=== PATIENT | female | born 1965 | race Caucasian/White ===

== ENCOUNTER 2023-11-10 15:12 | Inpatient (IN) ==
--- NOTE | 2023-11-10 15:18 | ED Triage Note ---
Date of Service November 10, 2023 Provider in Triage Author: Bobby Carson History of Present Illness This patient was briefly evaluated while in triage. An abbreviated physical exam was performed. This patient is a 58-year-old Female who presents to the ED for evaluation illness started 10/26 - cough, congestion, fevers, no testing done feeling increasingly SOB in the last few days productive cough Physical Exam GENERAL: Mild distress, ill appearing, hypertensive, tachycardic and tachypneic CARDIOVASCULAR: RRR RESPIRATORY: BS diminished bilaterally. Initial orders for labs and / or imaging were placed and patient was placed in the waiting area until a bed is available. Please see further documentation for the full ED course.
[2023-11-10] MEDS: ALBUT/IPRATROP 3MG/0.5MG NEB 3 ML VIAL NEB STA ×2 (15:36→18:16)
[2023-11-10 16:05] LABS: Basophils # (auto) 0.01 K/uL (0.00-0.20); Basophils % (auto) 0.1 %; Eosinophils # (auto) 0.03 K/uL (0.00-0.50); Eosinophils % (auto) 0.3 %; Hematocrit (blood only) 42.1 % (37.0-47.0); Hemoglobin 14.5 g/dl (12.0-16.0); Immature Granulocytes # (auto) 0.04 K/uL (0.01-0.20); Immature Granulocytes % (auto) 0.4 %; Lymphocytes # (auto) 0.45 K/uL (1.20-3.40); Lymphocytes % (auto) 4.2 %; Mean Corpuscular Hemoglobin 33.6 pg (25.0-34.0); Mean Corpuscular Hgb Conc 34.4 g/dL (32.0-36.0); Mean Corpuscular Volume 97.7 fL (80.0-100.0); Mean Platelet Volume 9.5 fL (9.4-12.4); Monocytes # (auto) 0.64 K/uL (0.11-0.59); Monocytes % (auto) 5.9 %; Neutrophils # (auto) 9.65 K/uL (1.40-6.50); Neutrophils % (auto) 89.1 %; Platelet Count 293 K/uL (130-400); RDW Coefficient of Variation 13.8 % (11.5-14.5); RDW Standard Deviation 50.4 fL (36.4-46.3); Red Blood Count 4.31 M/uL (4.20-5.40); White Blood Count 10.82 K/ul (4.8-10.8)
[2023-11-10 16:11] LABS: Albumin Globulin Ratio 1.5 (0.9-2); Albumin Level 4.8 gm/dl (3.4-5.0); BUN Creatinine Ratio 12.3 (10-20); Bilirubin,Total 0.6 mg/dl (0.2-1.0); Calcium 10.1 mg/dl (8.6-10.3); Creatinine Clr Calc Pharmacy 92.4 ml/min; Est GFR (African American) 113.4 ml/min; Est GFR (Non-African American) 97.9 ml/min; Globulin 3.3 gm/dl (2.5-4.0); Potassium 3.8 mmol/L (3.5-5.1); Total Protein 8.1 gm/dl (6.0-8.3)
[2023-11-10 16:18] LABS: Troponin I High Sensitivity 6.8 pg/ml (0-14)
[2023-11-10 16:23] LABS: D Dimer 340 ug/L FEU (0-500)
[2023-11-10 16:34] LABS: Adenovirus PCR Not Detected (NotDetected); Bordetella parapertussis PCR Not Detected (NotDetected); Bordetella pertussis PCR Not Detected (NotDetected); Chlamydia pneumoniae PCR Not Detected (NotDetected); Coronavirus 229E PCR Not Detected (NotDetected); Coronavirus CoV-2 (COVID19)PCR Not Detected (NotDetected); Coronavirus HKU1 PCR DETECTED (NotDetected); Coronavirus NL63 PCR Not Detected (NotDetected); Coronavirus OC43PCR Not Detected (NotDetected); Human Metapneumovirus PCR Not Detected (NotDetected); Influenza A PCR Not Detected (NotDetected); Influenza B PCR Not Detected (NotDetected); Mycoplasma pneumoniae PCR Not Detected (NotDetected); Parainfluenza Virus 1 PCR Not Detected (NotDetected); Parainfluenza Virus 2 PCR Not Detected (NotDetected); Parainfluenza Virus 3 PCR Not Detected (NotDetected); Parainfluenza Virus 4 PCR Not Detected (NotDetected); Respiratory Syncytial VirusPCR Not Detected (NotDetected); Rhinovirus/Enterovirus PCR Not Detected (NotDetected)
--- NOTE | 2023-11-10 16:38 | XRay Report ---
XR chest 2V PA/lateral CLINICAL HISTORY: Dyspnea. COMPARISON STUDY: No previous studies for comparison. FINDINGS: Lung volumes are normal. Lungs are clear. There is no pneumothorax or pleural effusion. Car diac size is normal. Mediastinal contours are normal. There is no evidence for pulmonary edema. IMPRESSION: No acute cardiopulmonary findings. ACT 112: Negative or not required by law. Electronically signed by: Александр Lopez M.D. 11/10/2023 4:37 PM
[2023-11-10] MEDS: dexAMETHasone**PF** 10 MG/ML VIAL IV ONE (17:17)
[2023-11-10] MEDS: SODIUM CHLORIDE 0.9% 500 ML IV ONE ×2 (17:17→18:16)
--- NOTE | 2023-11-10 17:24 | Emergency Department Note ---
Impression & Plan Acute bronchitis, Hypoxia, Viral infection ED Provider Note NAME: SHAYY VASQUEZ AGE: 58 SEX: F : 1965 ARRIVES VIA: Walk-In INFORMANT: Patient, ED PROVIDER(S): Maksim Dumont DO CHIEF COMPLAINT: Shortness of breath HPI: The patient is a 58-year-old female who presented to the emergency department for an evaluation of shortness of breath. The patient's been having shortness of breath over the course of the last few weeks. The patient states that she has had a dry cough. The patient denies having any fever. She denies having any hemoptysis or lower extremity swelling. The patient does not have a primary care physician that she could see currently. The patient states that she does not use tobacco products currently. She was having significant shortness of breath and fast heart rate especially with any exertion. The patient denies having any abdominal pain. She does complain of some chest pressure ROS: See above HPI for pertinent positives & negatives. A total of 10 systems reviewed and were otherwise negative. PAST MEDICAL HISTORY: See Below PAST SURGICAL HISTORY: See Below FAMILY HISTORY: See Below SOCIAL HISTORY: See Below HOME MEDICATIONS: See Below ALLERGIES: See Below VITALS: See Below PHYSICAL EXAMINATION: GENERAL: The patient is awake and alert. She is somewhat anxious appearing. EYES: The conjunctivae are clear. The pupils are round and reactive. EARS, NOSE, MOUTH AND THROAT: The nose is without any evidence of any deformity. NECK: The neck is nontender and supple. RESPIRATORY: Diminished breath sounds are noted throughout. There is conversational dyspnea appreciated. Gallops normal S1 normal S2. GASTROINTESTINAL: The abdomen is soft. Abdomen is nontender. MUSCULOSKELETAL/EXTREMITIES: There is no evidence of gross deformity full range of motion is noted in the hips and shoulders. SKIN: There is no obvious evidence of any rash. There are no petechiae, pallor or cyanosis noted. NEUROLOGIC: Patient is awake alert and oriented x3 MEDICAL DECISION MAKING: The patient is a 58-year-old female who presented to the emergency department for an evaluation of difficulty breathing. The patient's history and physical exam appear to be consistent with more of a bronchitis. The patient was hypoxic with any exertion. I discussed the patient's laboratory and radiographic studies with her. She was treated with IV fluids IV steroids and bronchodilator therapy. On reevaluation she was significantly improved but still had hypoxia with exertion. This reason [facility] agreed to evaluate the patient in the emergency department for further management and disposition Triage Nursing notes reviewed. Prior medical records reviewed Vital Signs: reviewed and remarkable for elevated blood pressure and hypoxia. Differential diagnosis: Reactive airway disease, pneumonia, pneumothorax, COPD, CHF, infections, cardiac ischemia, pulmonary embolism, musculoskeletal, gastrointestinal, as well as other pathologies. ER treatment provided: See below Diagnostics interpreted by me: ECG: EKG was obtained in the emergency department. My interpretation is sinus tachycardia 116 bpm. There is no acute ST segment elevations noted. There is no ectopy. No previous tracing was available Cardiac Monitoring: An order was placed for continuous cardiac monitoring. The monitor shows a rate of 95 bpm with sinus rhythm. Laboratory studies: As stated above and show below. Imaging studies: See below. Radiographic imaging was reviewed by myself Consultation(s): I discussed this case with Dr. Sapp who [facility] ED COURSE: Procedures: none Critical Care: I have personally spent greater than 45 minutes of critical care time in the direct management of this patient. This includes bedside care, interpretation of diagnostic studies, and testing, discussion with consultants, patient, and family members, and other required patient management activities. This 45 minutes is in excess of all separately billable procedures. Past Med/Surg History Medical History High cholesterol Lumbar back pain Social History Smoking Status: Former smoker Preferred Language: Afghan Feels Safe at Home: Yes Allergies Allergies Allergy/AdvReac Type Severity Reaction Status Date / Time betaine Allergy Severe PER Verified 11/10/23 19:17 [facility] blue dye Allergy Severe SHORT OF Verified 11/10/23 19:17 BREATH/HIVES bupropion Allergy Severe CHEST Verified 11/10/23 19:17 PAIN/CYANOSIS neomycin Allergy Severe Anaphylaxis Verified 11/10/23 19:17 paroxetine Allergy Severe SWELLING Verified 11/10/23 19:17 OF FACE/LIPS/TONGUE GLUTATHIONE Allergy Severe PER Uncoded 11/10/23 19:17 [facility] TRYPSIN-CASTOR OIL-CARLOS Allergy Severe PER Uncoded 11/10/23 19:17 [facility] TEA TREE OIL Allergy Intermediate Rash Uncoded 11/10/23 19:17 Home Meds Home Medications Medication Instructions Recorded Confirmed albuterol sulfate 2.5 mg/3 mL 2.5 mg inhalation DIRECTED PRN 11/10/23 11/10/23 (0.083 %) solution for nebulization Shortness Of Breath Or Wheezing albuterol sulfate 90 mcg/actuation 2 puff inhalation QID PRN 11/10/23 11/10/23 aerosol inhaler Shortness Of Breath Or Wheezing citalopram 40 mg tablet 40 mg PO DAILY 11/10/23 11/10/23 cyclobenzaprine 10 mg tablet 10 mg PO BID PRN MUSCLE SPASMS 11/10/23 11/10/23 ibuprofen 200 mg tablet 400 mg PO Q6H PRN Pain 11/10/23 11/10/23 naproxen 500 mg tablet 500 mg PO BID PRN Pain 11/10/23 11/10/23 rosuvastatin 10 mg tablet 10 mg PO DAILY 11/10/23 11/10/23 Results & Data (ED) Vital Signs Vital Signs - 24 hr 11/10/23 15:17 11/10/23 16:37 11/10/23 16:47 Temperature 36.9 C Temperature Source Temporal Artery Scan Pulse Rate 127 H 104 H 103 H Pulse Rate from SpO2 Sensor 103 H Respiratory Rate 32 H 30 H Respiratory Effort / Characteristics Non-Labored Spontaneous Blood Pressure 186/105 H 167/99 H Blood Pressure Mean 132 121 Pulse Oximetry 90 91 Oxygen Delivery Method Room Air Room Air Oxygen Flow Rate Sepsis Recent Fever Within 48 Hours Yes Sepsis New/Unexplained Change in Mental Status No Sepsis Action Taken by Nursing Adv Provider Notified Oxygen Flow Rate - Titration Pulse Oximetry Post Tiitration 11/10/23 17:00 11/10/23 17:00 11/10/23 17:05 Temperature Temperature Source Pulse Rate 105 H Pulse Rate from SpO2 Sensor 101 H Respiratory Rate 26 H Respiratory Effort / Characteristics Blood Pressure 151/95 H Blood Pressure Mean 126 Pulse Oximetry 90 88 L Oxygen Delivery Method Room Air Nasal Cannula Oxygen Flow Rate 0 Sepsis Recent Fever Within 48 Hours Sepsis New/Unexplained Change in Mental Status Sepsis Action Taken by Nursing Oxygen Flow Rate - Titration 2 Pulse Oximetry Post Tiitration 96 11/10/23 17:06 11/10/23 17:35 11/10/23 18:00 Temperature Temperature Source Pulse Rate 106 H Pulse Rate from SpO2 Sensor Respiratory Rate 20 Respiratory Effort / Characteristics Blood Pressure 142/79 H Blood Pressure Mean 122 Pulse Oximetry 96 Oxygen Delivery Method Nasal Cannula Oxygen Flow Rate 2 Sepsis Recent Fever Within 48 Hours Sepsis New/Unexplained Change in Mental Status Sepsis Action Taken by Nursing Oxygen Flow Rate - Titration Pulse Oximetry Post Tiitration 11/10/23 18:00 11/10/23 18:30 11/10/23 18:30 Temperature Temperature Source Pulse Rate 92 H 90 Pulse Rate from SpO2 Sensor 95 H 91 H Respiratory Rate 17 12 Respiratory Effort / Characteristics Blood Pressure 181/88 H Blood Pressure Mean 118 Pulse Oximetry 95 99 Oxygen Delivery Method Oxygen Flow Rate Sepsis Recent Fever Within 48 Hours Sepsis New/Unexplained Change in Mental Status Sepsis Action Taken by Nursing Oxygen Flow Rate - Titration Pulse Oximetry Post Tiitration 11/10/23 19:00 11/10/23 19:00 11/10/23 19:30 Temperature Temperature Source Pulse Rate 96 H 89 Pulse Rate from SpO2 Sensor 93 H Respiratory Rate 24 Respiratory Effort / Characteristics Blood Pressure 163/91 H 149/94 H Blood Pressure Mean 127 118 Pulse Oximetry 93 Oxygen Delivery Method Oxygen Flow Rate Sepsis Recent Fever Within 48 Hours Sepsis New/Unexplained Change in Mental Status Sepsis Action Taken by Nursing Oxygen Flow Rate - Titration Pulse Oximetry Post Tiitration 11/10/23 19:30 11/10/23 20:00 11/10/23 20:00 Temperature Temperature Source Pulse Rate 91 H 94 H Pulse Rate from SpO2 Sensor 91 H 93 H Respiratory Rate 16 30 H Respiratory Effort / Characteristics Blood Pressure 170/97 H Blood Pressure Mean 121 Pulse Oximetry 94 95 Oxygen Delivery Method Oxygen Flow Rate 2 Sepsis Recent Fever Within 48 Hours Sepsis New/Unexplained Change in Mental Status Sepsis Action Taken by Nursing Oxygen Flow Rate - Titration Pulse Oximetry Post Tiitration 11/10/23 20:20 11/10/23 20:21 11/10/23 20:36 Temperature Temperature Source Pulse Rate 90 95 H Pulse Rate from SpO2 Sensor 91 H Respiratory Rate 17 Respiratory Effort / Characteristics Blood Pressure 173/91 H Blood Pressure Mean 118 Pulse Oximetry 95 Oxygen Delivery Method Oxygen Flow Rate Sepsis Recent Fever Within 48 Hours Sepsis New/Unexplained Change in Mental Status Sepsis Action Taken by Nursing Oxygen Flow Rate - Titration Pulse Oximetry Post Tiitration Home Medications Current Medication List: was personally reviewed by me Laboratory Data Attestation: I reviewed the patient's lab results. 11/10/23 15:30 11/10/23 15:30 Lab Results 11/10/23 11/10/23 Range/Units 15:16 15:30 WBC 10.82 H (4.8-10.8) K/ul RBC 4.31 (4.20-5.40) M/uL Hgb 14.5 (12.0-16.0) g/dl Hct 42.1 (37.0-47.0) % MCV 97.7 (80.0-100.0) fL MCH 33.6 (25.0-34.0) pg MCHC 34.4 (32.0-36.0) g/dL RDW Std Deviation 50.4 H (36.4-46.3) fL RDW Coeff of Opal 13.8 (11.5-14.5) % Plt Count 293 (130-400) K/uL MPV 9.5 (9.4-12.4) fL Immature Gran % (Auto) 0.4 % Neut % (Auto) 89.1 % Lymph % (Auto) 4.2 % [place] % (Auto) 5.9 % Eos % (Auto) 0.3 % Baso % (Auto) 0.1 % Neut # (Auto) 9.65 H (1.40-6.50) K/uL Lymph # (Auto) 0.45 L (1.20-3.40) K/uL [place] # (Auto) 0.64 H (0.11-0.59) K/uL Eos # (Auto) 0.03 (0.00-0.50) K/uL Baso # (Auto) 0.01 (0.00-0.20) K/uL Immature Gran # (Auto) 0.04 (0.01-0.20) K/uL D-Dimer 340 (0-500) ug/L FEU Sodium 135 L (136-145) mmol/L Potassium 3.8 (3.5-5.1) mmol/L Chloride 100 (98-107) mmol/L Carbon Dioxide 24 (21-32) mmol/L Anion Gap 11 (3-11) BUN 8 (6-23) mg/dl Creatinine 0.65 (0.6-1.2) mg/dl Est Cr Clr Drug Dosing 92.4 ml/min Est GFR ( Amer) 113.4 ml/min Est GFR (Non-Af Amer) 97.9 ml/min BUN/Creatinine Ratio 12.3 (10-20) Glucose 137 H (70-99(Fasting)) mg/dl Calcium 10.1 (8.6-10.3) mg/dl Total Bilirubin 0.6 (0.2-1.0) mg/dl AST 28 (13-39) U/L ALT 52 (7-52) U/L Alkaline Phosphatase 131 H (34-104) U/L Troponin I High Sens 6.8 (0-14) pg/ml Total Protein 8.1 (6.0-8.3) gm/dl Albumin 4.8 (3.4-5.0) gm/dl Globulin 3.3 (2.5-4.0) gm/dl Albumin/Globulin Ratio 1.5 (0.9-2) Adenovirus (PCR) Not Detected (NotDetected) B. pertussis DNA (PCR) Not Detected (NotDetected) B.parapertussis DNA PCR Not Detected (NotDetected) C. pneumoniae DNA (PCR) Not Detected (NotDetected) Coronavirus OC43 (PCR) Not Detected (NotDetected) Coronavirus HKU1 (PCR) DETECTED A (NotDetected) Coronavirus 229E (PCR) Not Detected (NotDetected) SARS-CoV-2 (PCR) Not Detected (NotDetected) Coronavirus NL63 (PCR) Not Detected (NotDetected) Human Metapneumovir PCR Not Detected (NotDetected) Influenza Type A (PCR) Not Detected (NotDetected) Influenza Type B (PCR) Not Detected (NotDetected) M. pneumoniae (PCR) Not Detected (NotDetected) Parainfluenza 1 (PCR) Not Detected (NotDetected) Parainfluenza 2 (PCR) Not Detected (NotDetected) Parainfluenza 3 (PCR) Not Detected (NotDetected) Parainfluenza 4 (PCR) Not Detected (NotDetected) RSV (PCR) Not Detected (NotDetected) Entero/Rhino (PCR) Not Detected (NotDetected) Administered Medications Discontinued Medications Albuterol (Albut/Ipratrop 3mg/0.5mg Neb 3 Ml Vial) 3 ml NEB NOW STA; Protocol Stop: 11/10/23 15:19 Last Admin: 11/10/23 15:36 Dose: 3 ml Documented By: ANASTASIA Albuterol (Albut/Ipratrop 3mg/0.5mg Neb 3 Ml Vial) 3 ml NEB NOW STA; Protocol Stop: 11/10/23 18:11 Last Admin: 11/10/23 18:16 Dose: 3 ml Documented By: ACC Dexamethasone Sodium Phosphate (DexamethasonePf 10 Mg/Ml Vial) 10 mg IV NOW ONE Stop: 11/10/23 17:09 Last Admin: 11/10/23 17:17 Dose: 10 mg Documented By: ACC Sodium Chloride (Nss) 500 mls @ 999 mls/hr IV .Q31M ONE Stop: 11/10/23 17:38 Last Infusion: 11/10/23 17:50 Dose: Infused Documented By: Admin: 11/10/23 17:17 Dose: 999 mls/hr Documented By: ACC Sodium Chloride (Nss) 500 mls @ 999 mls/hr IV .Q31M ONE Stop: 11/10/23 18:39 Last Infusion: 11/10/23 18:48 Dose: Infused Documented By: Admin: 11/10/23 18:16 Dose: 999 mls/hr Documented By: ACC Ioversol (Optiray 320 125ml) 119 ml IV ONCE ONE Stop: 11/10/23 17:29 Last Admin: 11/10/23 17:29 Dose: 119 ml Documented By: JOHANA Imaging Data Attestation: I personally reviewed and interpreted this imaging study as follows: My Impression: 1 view chest x-ray was obtained in the emergency department. My interpretation is no free air or definite infiltrate, final report below Radiologist's Impression: Chest X-Ray 11/10/23 15:18 XR chest 2V PA/lateral CLINICAL HISTORY: Dyspnea. COMPARISON STUDY: No previous studies for comparison. FINDINGS: Lung volumes are normal. Lungs are clear. There is no pneumothorax or pleural effusion. Cardiac size is normal. Mediastinal contours are normal. There is no evidence for pulmonary edema. IMPRESSION: No acute cardiopulmonary findings. ACT 112: Negative or not required by law. Electronically signed by: Александр Lopez M.D. 11/10/2023 4:37 PM Chest CTA 11/10/23 17:08 CT angio chest PE protocol CLINICAL HISTORY: PE TECHNIQUE: Multidetector row helical CT of the chest was performed with angiographic protocol. Coronal and sagittal reformations were obtained. Coronal and sagittal MIPS were obtained from the axial data set and were submitted for review. Automated dose lowering techniques and/or adjustment according to patient size were utilized for this exam. CT DOSE: 720.03 mGy.cm Comparison: Comparison is made to chest radiograph 11/10/2023 FINDINGS: Lungs and pleura: Biapical scarring is noted. Heart and pericardium: Heart size is normal. No pericardial effusion. Vessels: No evidence of pulmonary embolism. Mediastinum and sanjeev: Subcentimeter lymph nodes are seen. Chest wall and lower neck: Unremarkable. Abdomen: A hiatal hernia is seen. Bones: Degenerative changes in the thoracic spine. IMPRESSION: 1. No acute abnormality and in particular no evidence of pulmonary embolus. 2. Mild interstitial thickening is seen with biapical scarring. ACT 112: Negative or not required by law. Electronically signed by: Robert Bahena M.D. 11/10/2023 6:00 PM Discharge Plan Visit Data Chief Complaint: Shortness of Breath/Dyspnea Stated Complaint: TROUBLE BREATHING ED Provider: Maksim Dumont Discharge Problem: Acute bronchitis, Hypoxia, Viral infection Patient Disposition: Admitted As Inpatient Forms Stand Alone Forms: [facility] Prescriptions Prescriptions: No Action cyclobenzaprine 10 mg tablet 10 mg PO BID PRN (Reason: MUSCLE SPASMS) citalopram 40 mg tablet 40 mg PO DAILY albuterol sulfate 90 mcg/actuation HFA aerosol inhaler 2 puff INHALATION QID PRN (Reason: Shortness Of Breath Or Wheezing) naproxen 500 mg tablet 500 mg PO BID PRN (Reason: Pain) rosuvastatin 10 mg tablet 10 mg PO DAILY albuterol sulfate [Proventil] 2.5 mg /3 mL (0.083 %) Solution For Nebulization 2.5 mg INHALATION DIRECTED PRN (Reason: Shortness Of Breath Or Wheezing) ibuprofen 200 mg Tablet 400 mg PO Q6H PRN (Reason: Pain) Referrals Referrals: Rommel Bravo DO [Primary Care Provider] - Discharge Problem: Acute bronchitis Qualifiers: Bronchitis organism: unspecified organism Qualified Code(s): J20.9 - Acute bronchitis, unspecified
[2023-11-10] MEDS: OPTIRAY 320 125ml IV ONE (17:29)
--- NOTE | 2023-11-10 18:02 | CT Scan Report ---
CT angio chest PE protocol CLINICAL HISTORY: PE TECHNIQUE: Multidetector row helical CT of the chest was performed with angiographic protocol. Ribeiro l and sagittal reformations were obtained. Coronal and sagittal MIPS were obtained from the axial gennaro a set and were submitted for review. Automated dose lowering techniques and/or adjustment according to patient size were utilized for this exam. CT DOSE: 720.03 mGy.cm Comparison: Comparison is made to chest radiograph 11/10/2023 FINDINGS: Lungs and pleura: Biapical scarring is noted. Heart and pericardium: Heart size is normal. No pericardial effusion. Vessels: No evidence of pulmonary embolism. Mediastinum and sanjeev: Subcentimeter lymph nodes are seen. Chest wall and lower neck: Unremarkable. Abdomen: A hiatal hernia is seen. Bones: Degenerative changes in the thoracic spine. IMPRESSION: 1. No acute abnormality and in particular no evidence of pulmonary embolus. 2. Mild interstitial thickening is seen with biapical scarring. ACT 112: Negative or not required by law. Electronically signed by: Robert Bahena M.D. 11/10/2023 6:00 PM
--- NOTE | 2023-11-10 20:53 | History & Physical Report ---
Date of Service November 10, 2023 Assessment & Plan (1) SOB (shortness of breath): Plan: 58-year-old female with past medically significant for prediabetes, GERD, sacroiliitis, depression, mild COPD presents with shortness of breath. Patient states she had cold symptoms on October 26. Since then she is developing cough and shortness of breath which is getting progressively worse. And today walking short distance making her short of breath. And also had some chest tightness. Some headache. No body aches. Appetite is down. Coughing and bringing up whitish phlegm. Thought maybe had some low-grade fever. Some nausea. No vomiting. No abdominal pain. Normal bowel and bladder movements. Vision is okay. No earaches. Had sore throat for initial couple of days but is gone now. Hemodynamics are okay. Shortness of breath Mostly COPD exacerbation from viral bronchitis Bio fire was positive for [id number] Droplet precautions IV Solu-Medrol 40 mg 3 times daily DuoNebs dpiaxn-wtr-agosm and as needed P.o. doxycycline Will monitor Chest tightness Mostly from above Initial troponin negative and EKG okay Will follow serial enzymes and repeat EKG If any concern will get echo and cardiac consult Depression on citalopram Hyperlipidemia On statin Prediabetes Will follow HbA1c levels Monitor blood sugars while on steroids DVT prophylaxis Lovenox Disposition Admit/telemetry Full code History of Present Illness Chief Complaint: Shortness of breath Primary Care Provider: Rommel Bravo DO 58-year-old female with past medically significant for prediabetes, GERD, sacroiliitis, depression, mild COPD presents with shortness of breath. Patient states she had cold symptoms on October 26. Since then she is developing cough and shortness of breath which is getting progressively worse. And today walking short distance making her short of breath. And also had some chest tightness. Some headache. No body aches. Appetite is down. Coughing and bringing up whitish phlegm. Thought maybe had some low-grade fever. Some nausea. No vomiting. No abdominal pain. Normal bowel and bladder movements. Vision is okay. No earaches. Had sore throat for initial couple of days but is gone now. Hemodynamics are okay. Past med history. As mentioned above Past surgical history. Likely shoulders. Lumbar spine fusion surgery. Sacroiliac joint injection. Posterior spinal fixation. Social history. . Smoked 1 pack a day for 23 years. Quit smoking in 2008. Alcohol beer daily. No known drug use. Family history. Father had eczema. Heart attack. Lung cancer. Back problems. Maternal grandmother had IA at any age. Paternal grandmother had diabetes. Allergies Allergy/AdvReac Type Severity Reaction Status Date / Time balsam gwyn Allergy Severe per Verified 11/10/23 23:12 [facility] betaine Allergy Severe PER Verified 11/10/23 19:17 [facility] blue dye Allergy Severe SHORT OF Verified 11/10/23 19:17 BREATH/HIVES bupropion Allergy Severe CHEST Verified 11/10/23 19:17 PAIN/CYANOSIS castor oil Allergy Severe per Verified 11/10/23 23:12 [facility] neomycin Allergy Severe Anaphylaxis Verified 11/10/23 19:17 paroxetine Allergy Severe SWELLING Verified 11/10/23 19:17 OF FACE/LIPS/TONGUE trypsin Allergy Severe per Verified 11/10/23 23:12 [facility] tea tree Allergy Intermediate (OIL) Rash Verified 11/10/23 23:12 glutathione Allergy Severe per Uncoded 11/10/23 23:16 [facility] Home Medications Medication Instructions Recorded Confirmed Type albuterol sulfate 2.5 mg/3 mL 2.5 mg inhalation DIRECTED PRN 11/10/23 11/10/23 History (0.083 %) solution for nebulization Shortness Of Breath Or Wheezing albuterol sulfate 90 mcg/actuation 2 puff inhalation QID PRN 11/10/23 11/10/23 History aerosol inhaler Shortness Of Breath Or Wheezing citalopram 40 mg tablet 40 mg PO DAILY 11/10/23 11/10/23 History cyclobenzaprine 10 mg tablet 10 mg PO BID PRN MUSCLE SPASMS 11/10/23 11/10/23 History ibuprofen 200 mg tablet 400 mg PO Q6H PRN Pain 11/10/23 11/10/23 History naproxen 500 mg tablet 500 mg PO BID PRN Pain 11/10/23 11/10/23 History rosuvastatin 10 mg tablet 10 mg PO DAILY 11/10/23 11/10/23 History Past Med/Surg History Medical History High cholesterol Lumbar back pain Social History (Reviewed 11/10/23 @ 17:24 by KOFI Duckworth Smoking Status: Never smoker Hx Alcohol Use: Yes Hx Substance Use: No Preferred Language: [place] Voice Systems Engineer Required: No Beliefs That Will Affect Care: None Current Living Situation: Spouse Feels Safe at Home: Yes Safety Concerns: Feels Safe At This Time Assistive Devices: None Review of Systems Review of Systems: All systems reviewed & are unremarkable except as noted in HPI & below Physical Exam Physical Exam: General-Not in distress Head- atraumatic Eyes- PERRL. ENT- oropharynx clear Neck- supple, no JVD. Lungs- clear to auscultation mild bilateral rhonchi, no wheezing Heart- regular rhythm; no murmur, no gallop. Abdomen- normal bowel sounds, soft, nontender, no distension Extremities- no pretibial edema, no erythema seen Neuro- alert, oriented x 3; PERRL, no facial palsy; no dysarthria; moves extremities. Skin- warm & dry Results & Data Results & Data Vital Signs (Past 12 Hours) Vital Signs Temp Pulse Resp BP Pulse Ox O2 Del Method O2 Flow Rate 11/10/23 20:36 95 H 11/10/23 20:21 173/91 H 11/10/23 20:20 90 17 95 11/10/23 20:00 170/97 H 11/10/23 20:00 94 H 30 H 95 11/10/23 19:30 91 H 16 94 2 11/10/23 19:30 89 149/94 H 11/10/23 19:00 163/91 H 11/10/23 19:00 96 H 24 93 11/10/23 18:30 90 12 99 11/10/23 18:30 181/88 H 11/10/23 18:00 92 H 17 95 11/10/23 18:00 142/79 H 11/10/23 17:35 106 H 20 11/10/23 17:06 96 Nasal Cannula 2 11/10/23 17:05 88 L Room Air, Nasal Cannula 0 11/10/23 17:00 151/95 H 11/10/23 17:00 105 H 26 H 90 11/10/23 16:47 103 H 11/10/23 16:37 104 H 30 H 167/99 H 91 Room Air 11/10/23 15:17 36.9 C 127 H 32 H 186/105 H 90 Room Air Diagnostic Findings Laboratory Results WBC 10.82 K/ul (4.8-10.8) H 11/10/23 15:30 RBC 4.31 M/uL (4.20-5.40) 11/10/23 15:30 Hgb 14.5 g/dl (12.0-16.0) 11/10/23 15:30 Hct 42.1 % (37.0-47.0) 11/10/23 15:30 MCV 97.7 fL (80.0-100.0) 11/10/23 15:30 MCH 33.6 pg (25.0-34.0) 11/10/23 15: MCHC 34.4 g/dL (32.0-36.0) 11/10/23 15: RDW Std Deviation 50.4 fL (36.4-46.3) H 11/10/23 15:30 RDW Coeff of Opal 13.8 % (11.5-14.5) 11/10/23 15: Plt Count 293 K/uL (130-400) 11/10/23 15:30 MPV 9.5 fL (9.4-12.4) 11/10/23 15:30 Immature Gran % (Auto) 0.4 % 11/10/23 15:30 Neut % (Auto) 89.1 % 11/10/23 15:30 Lymph % (Auto) 4.2 % 11/10/23 15:30 [place] % (Auto) 5.9 % 11/10/23 15:30 Eos % (Auto) 0.3 % 11/10/23 15:30 Baso % (Auto) 0.1 % 11/10/23 15:30 Neut # (Auto) 9.65 K/uL (1.40-6.50) H 11/10/23 15:30 Lymph # (Auto) 0.45 K/uL (1.20-3.40) L 11/10/23 15:30 [place] # (Auto) 0.64 K/uL (0.11-0.59) H 11/10/23 15:30 Eos # (Auto) 0.03 K/uL (0.00-0.50) 11/10/23 15:30 Baso # (Auto) 0.01 K/uL (0.00-0.20) 11/10/23 15:30 Immature Gran # (Auto) 0.04 K/uL (0.01-0.20) 11/10/23 15:30 D-Dimer 340 ug/L FEU (0-500) 11/10/23 15:30 Sodium 135 mmol/L (136-145) L 11/10/23 15:30 Potassium 3.8 mmol/L (3.5-5.1) 11/10/23 15:30 Chloride 100 mmol/L (98-107) 11/10/23 15:30 Carbon Dioxide 24 mmol/L (21-32) 11/10/23 15:30 Anion Gap 11 (3-11) 11/10/23 15:30 BUN 8 mg/dl (6-23) 11/10/23 15:30 Creatinine 0.65 mg/dl (0.6-1.2) 11/10/23 15:30 Est Cr Clr Drug Dosing 92.4 ml/min 11/10/23 15:30 Est GFR ( Amer) 113.4 ml/min 11/10/23 15:30 Est GFR (Non-Af Amer) 97.9 ml/min 11/10/23 15:30 BUN/Creatinine Ratio 12.3 (10-20) 11/10/23 15:30 Glucose 137 mg/dl (70-99(Fasting)) H 11/10/23 15:30 Calcium 10.1 mg/dl (8.6-10.3) 11/10/23 15:30 Total Bilirubin 0.6 mg/dl (0.2-1.0) 11/10/23 15:30 AST 28 U/L (13-39) 11/10/23 15:30 ALT 52 U/L (7-52) 11/10/23 15:30 Alkaline Phosphatase 131 U/L (34-104) H 11/10/23 15:30 Troponin I High Sens 6.8 pg/ml (0-14) 11/10/23 15:30 Total Protein 8.1 gm/dl (6.0-8.3) 11/10/23 15:30 Albumin 4.8 gm/dl (3.4-5.0) 11/10/23 15:30 Globulin 3.3 gm/dl (2.5-4.0) 11/10/23 15:30 Albumin/Globulin Ratio 1.5 (0.9-2) 11/10/23 15:30 Adenovirus (PCR) Not Detected (NotDetected) 11/10/23 15:16 B. pertussis DNA (PCR) Not Detected (NotDetected) 11/10/23 15:16 B.parapertussis DNA PCR Not Detected (NotDetected) 11/10/23 15:16 C. pneumoniae DNA (PCR) Not Detected (NotDetected) 11/10/23 15:16 Coronavirus OC43 (PCR) Not Detected (NotDetected) 11/10/23 15:16 Coronavirus HKU1 (PCR) DETECTED (NotDetected) A 11/10/23 15:16 Coronavirus 229E (PCR) Not Detected (NotDetected) 11/10/23 15:16 SARS-CoV-2 (PCR) Not Detected (NotDetected) 11/10/23 15:16 Coronavirus NL63 (PCR) Not Detected (NotDetected) 11/10/23 15:16 Human Metapneumovir PCR Not Detected (NotDetected) 11/10/23 15:16 Influenza Type A (PCR) Not Detected (NotDetected) 11/10/23 15:16 Influenza Type B (PCR) Not Detected (NotDetected) 11/10/23 15:16 M. pneumoniae (PCR) Not Detected (NotDetected) 11/10/23 15:16 Parainfluenza 1 (PCR) Not Detected (NotDetected) 11/10/23 15:16 Parainfluenza 2 (PCR) Not Detected (NotDetected) 11/10/23 15:16 Parainfluenza 3 (PCR) Not Detected (NotDetected) 11/10/23 15:16 Parainfluenza 4 (PCR) Not Detected (NotDetected) 11/10/23 15:16 RSV (PCR) Not Detected (NotDetected) 11/10/23 15:16 Entero/Rhino (PCR) Not Detected (NotDetected) 11/10/23 15:16 Impressions Chest X-Ray 11/10/23 15:18 XR chest 2V PA/lateral CLINICAL HISTORY: Dyspnea. COMPARISON STUDY: No previous studies for comparison. FINDINGS: Lung volumes are normal. Lungs are clear. There is no pneumothorax or pleural effusion. Cardiac size is normal. Mediastinal contours are normal. There is no evidence for pulmonary edema. IMPRESSION: No acute cardiopulmonary findings. ACT 112: Negative or not required by law. Electronically signed by: Александр Lopez M.D. 11/10/2023 4:37 PM Chest CTA 11/10/23 17:08 CT angio chest PE protocol CLINICAL HISTORY: PE TECHNIQUE: Multidetector row helical CT of the chest was performed with angiographic protocol. Coronal and sagittal reformations were obtained. Coronal and sagittal MIPS were obtained from the axial data set and were submitted for review. Automated dose lowering techniques and/or adjustment according to patient size were utilized for this exam. CT DOSE: 720.03 mGy.cm Comparison: Comparison is made to chest radiograph 11/10/2023 FINDINGS: Lungs and pleura: Biapical scarring is noted. Heart and pericardium: Heart size is normal. No pericardial effusion. Vessels: No evidence of pulmonary embolism. Mediastinum and sanjeev: Subcentimeter lymph nodes are seen. Chest wall and lower neck: Unremarkable. Abdomen: A hiatal hernia is seen. Bones: Degenerative changes in the thoracic spine. IMPRESSION: 1. No acute abnormality and in particular no evidence of pulmonary embolus. 2. Mild interstitial thickening is seen with biapical scarring. ACT 112: Negative or not required by law. Electronically signed by: Robert Bahena M.D. 11/10/2023 6:00 PM ECG Additional Comments: ECG. Sinus tachycardia rate of 116. No significant change was found. Code Status & VTE Plan VTE Prophylaxis Plan VTE Prophylaxis will be ordered: Yes
[2023-11-10 22:42] LABS: Appearance Urine Clear (Clear); Bacteria Urine Automated Negative (Negative); Bilirubin Urine Negative (Negative); Blood Urine Negative (Negative); Color Urine Yellow; Epithelial Cell Urine Auto >30 /lpf (0-5); Glucose Urine UA 1+ (Negative); Ketones Urine Trace (Negative); Leukocyte Esterase Urine Negative (Negative); Nitrite Urine Negative (Negative); RBC Urine Automated 0-4 /hpf (0-4); Specific Gravity Urine > 1.045 (1.000-1.030); Urobilinogen Urine Negative (Negative); pH Urine 7.5 (4.5-7.5)
[2023-11-10 22:45] LABS: Protein Urine Trace (Negative)
[2023-11-10] MEDS ORDERED: POLYETHYLENE (MIRALAX) 17 GM PACK PO PRN (22:48)
[2023-11-10] MEDS ORDERED: NITROGLYCERIN SL 0.4 MG/TAB TAB SL PRN (22:48)
[2023-11-10] MEDS ORDERED: CYCLOBENZAPRINE HCL 10 MG TAB PO PRN (22:48)
[2023-11-10] MEDS ORDERED: ACETAMINOPHEN 325 MG TAB PO PRN (22:48)
[2023-11-10] MEDS ORDERED: ALBUTEROL HFA 8 GM INHALER INH PRN (22:48)
[2023-11-10] MEDS ORDERED: methylPREDNISolone 125 MG/2 ML VIAL IV SCH (22:48)
[2023-11-10 23:47] LABS: BUN Creatinine Ratio 9.4 (10-20); Calcium 9.6 mg/dl (8.6-10.3); Creatinine Clr Calc Pharmacy 93.8 ml/min; Est GFR (Non-African American) 98.4 ml/min
[2023-11-10] MEDS: methylPREDNISolone 40 MG in SYRINGE 0 ML IV SCH (23:48)
[2023-11-10] MEDS: DOXYCYCLINE HYCLATE 100 MG CAP PO SCH (23:48)
[2023-11-11] MEDS: ALBUT/IPRATROP 3MG/0.5MG NEB 3 ML VIAL NEB PRN (00:34)
--- OUTSIDE RECORDS SUMMARY | 2023-11-11 01:02 | External Medical Summary | Summary of Care ---
Author Name Unknown Organization [facility] Address [address] [place] [address] Phone [phone] Care Team Providers Care Chief Lending Officer Name Role Phone Rommel Bravo DO Primary Care Provider Reason for Visit * Reason Comments Outpatient Testing Encounter Details Date Type Department Care Team (Late st Contact Info) Description 10/30/2023 3:00 PM EDT Laboratory Laboratory, [facility] [address] [place] [phone] [facility] [address] [place] [address] Dyslipidemia, goal LDL below 130; Prediabetes; Dysuria; Hematuria Allergies Active Allergy Reactions Criticality Noted Date Comments Betaine High 05/29/2021 cocamidoproplyl Betaine Blue Dyes (Parenteral) High 05/29/2021 Disperse Blue 106 Glutathione High 05/29/2021 Neomycin Anaphylaxis High 05/29/2021 Fluoxetine Edema face/lips/tongue High 01/01/2022 Tea Tree Oil Rash Low 05/29/2021 Trypsin-[place] Oil-Purlear Balsam High 05/29/2021 Bupropion 10/01/2006 Chest pain and cyanosis documented as of this encounter (statuses as of 10/30/2023) Medications Medication Sig Dispensed Refills Start Date End Date Status Ibuprofen 200 MG Oral Capsule Take 2 Capsules by mouth every 6 hours as needed. 0 Active Naproxen 500 MG Oral Tablet (Naprosyn) TAKE ONE TABLET BY MOUTH TWICE DAILY NEEDED FOR PAIN, TAKE WITH FOOD 40 Tablet 1 04/23/2023 04/22/2024 Active Rosuvastatin Calcium 10 MG Oral Tablet (Crestor)Indications: Dyslipidemia, goal LDL below 130 TAKE ONE TABLET BY MOUTH IN THE MORNING 30 Tablet 11 05/18/2023 05/17/2024 Active Cyclobenzaprine HCl 10 MG Oral Tablet (Flexeril)Indications :Right-sided low back pain with right-sided sciatica, unspecified chronicity TAKE 1 TABLET BY MOUTH TWICE DAILY NEEDED FOR MUSCLE SPASMS 30 Tablet 1 08/14/2023 08/13/2024 Active Citalopram Hydrobromide 40 MG Oral Tablet (CeleXA)Indications:L umbar radiculopathy Take 1 Tablet by mouth in the morning. 90 Tablet 5 2023 Active ProAir HFA 108 (90 Base) MCG/ACT Inhalation Aerosol SolutionIndications:C OPD, mild (HCC) Inhale 2 Puffs by mouth in the morning and 2 Puffs at noon and 2 Puffs in the evening and 2 Puffs before bedtime. 25.5 g 3 2023 Active Hospital, Clinic, or Other Facility Administered Medication Ordered Dose Route Frequency Start Date End Date Status Albuterol Sulfate (Proventil) (2.5 MG/3ML) 0.083% inhalation solution 2.5 mgIndications:COPD, mild (HCC) 2.5 mg NEBULIZER ONCE PRN 2023 08/27/2024 Active documented as of this encounter (statuses as of 10/30/2023) Active Problems Problem Noted Date Diagnosed Date Moderate episode of recurrent major depressive d isorder 2023 Prediabetes 01/23/2021 Overview: Per Prediabetes protocol Pap smear for cervical cancer screening 12/16/19 21 Sacroiliitis 11/27/2020 Lumbar radiculopathy 05/05/2018 DDD (degenerative disc disease), lumbar 05/05/20 18 Esophageal reflux 07/03/2009 Insomnia 10/01/2006 Overview: ICD-10 update of inactive term documented as of this encounter (statuses as of 10/30/2023) Resolved Problems Problem Noted Date Diagnosed Date Resolved Date Tobacco use disorder 04/29/2008 009 ADJ DISORDER W/DEPRES MOOD 10/08/2006 0 11/27/2021 Overview: Was on wellbutrin (not effective), paxil (chest hurts) Zoloft worked. See scanned records from 10/01/2006 documented as of this encounter (statuses as of 10/30/2023) Immunizations Name Administration Dates Next Due COVID-19 mRNA, LNP-s, No Pre serve, 2-Dose Series (Pfizer) 01/05/2021,12/15/2020 COVID-19, mRNA, LNP-s, PF, B ooster, 100mcg/0.5mg (Moderna) 08/15/2021 Covid-19, Mrna, Lnp-s, Pf, B ivalent, 30 Mcg, IM, 12 yrs and above (Pfizer) 05/31/2022 Seasonal Influenza, PF, 6 M & above, IM , (FluLaval or Fluzone) 05/29/2022,05/09/2021,04/28/2020,2018 Seasonal Influenza, Quadriva lent, No Preserve, IM 05/26/2023,04/21/2018,05/28/2017,2015 Seasonal Influenza, Split, I IV3, With Preserve, Inj 05/17/2015,05/01/2009,05/27/2008,2006 TDAP (age 10 and older)(Boostrix) 05/29/2021 TDAP (age 11 and older)(Adacel) 05/01/2009 Zoster Vaccine Recombinant (Shingrix) 11/27/2021 ,05/29/2021 documented as of this encounter Social History Tobacco Use Types Packs/Day Years Used Date Smoking Tobacco: Former Cigarettes 1 23 0 03/11/1986 - 03/11/2009 Smokeless Tobacco: Never Comments:nicotene gum Alcohol Use Standard Drinks/Week Comments Yes 20 (1 standard drink = 0.6 oz pu re alcohol) beer daily PHQ-2 Answer Date Recorded PHQ Adult Total Score 0 11/27/2022 Hunger Vital Sign Answer Date Recorded Within the past 12 months, y ou worried that your food would run out before you got the money to buy more. Never true 12/16/19 21 Within the past 12 months, t he food you bought just didn't last and you didn't have money to get more. Never true 12/15/2020 Sex and Gender Information Value Date Recorded Sex Assigned at Not on file Gender Identity Not on file Sexual Orientation Not on file Job Start Date Occupation Industry Not on file Not on file Not on file documented as of this encounter Functional Status Functional Status Response Date of Assess ment Are you deaf or do you have serious difficulty h earing? No 05/04/2018 Are you blind or do you have serious difficulty seeing, even when wearing glasses? No 05/04/2018 Do you have serious difficul ty walking or climbing stairs? (5 years old or older) No 05/04/2018 Do you have difficulty dress ing or bathing? (5 years old or older) No 05/04/2018 Because of a physical, menta l, or emotional condition, do you have difficulty doing errands alone such as visiting a doctor s office or shopping? (15 years old or older) No 05/04/20 18 Cognitive Status Response Date of Assessm ent Because of a physical, menta l, or emotional condition, do you have serious difficulty concentrating, remembering, or making decisions? (5 years old or older) No 05/04/2018 documented as of this encounter Plan of Treatment Upcoming Encounters Date Type Department Care Team (Late st Contact Info) Description 11/06/2023 3:20 PM EDT Office Visit Family Practice [facility] [address] [place] [id number] Lili Miller CRNP [address] [place] [address] 11/24/2023 9:30 AM EDT Telemedicine Interventional Pain Center, [facility] [address] [address] Stacey Hemphill PA-C [address] [place] [address] 11/27/2023 9:00 AM EDT Office Visit Cardiology, [facility] [address] [place] [address] Ewa Conteh CRNP [address] [place] [address] 11/27/2023 1:40 PM EDT Office Visit [facility] [address] [place] [address] Faiza Bennett CRNP [address] [place] [address] 12/31/2023 10:45 AM EDT Imaging Radiology [facility] [address] [place] [address] 06/01/2024 1:00 PM EDT Office Visit [facility] [address] [place] [address] Rommel Bravo, [address] [place] [address] Pending Results Name Type Priority Associated Diagnoses Date /Time COMPREHENSIVE METABOLIC PANEL Lab Routine Dyslipidemia, goal LDL below 130 10/30/2023 2:39 PM EDT HEMOGLOBIN A1C Lab Routine Prediabetes 10/30/2023 2:39 PM EDT LIPID PANEL WITH DIRECT LDL IF TG IS HIGH Lab Routine Dyslipidemia, goal LDL below 130 10/30/2023 2:39 PM EDT TSH WITH FREE T4 IF INDICATED Lab Routine Dyslipidemia, goal LDL below 130 10/30/2023 2:39 PM EDT URINALYSIS, REFLEX TO MICROSCOPIC Lab Routine Dysuria Hematuria 10/30/2023 3:05 PM EDT CULTURE, URINE, QUANTITATIVE Lab Routine Dysuria Hematuria 10/30/2023 3:05 PM EDT Health Maintenance Due Date Last Done Comments Pneumococcal Vaccine: Pediatrics (0 to 5 Years) and At-Risk Patients (6 to 64 Years) (1 of 2 - PCV) 1971 Hepatitis B (1 of 3 - 19+ 3-dose series) 1984 HPV/Co-Test 1995 Colonoscopy 2010 Fecal Occult Blood Test 2010 Sigmoidoscopy 2010 COVID-19 Vaccine (2022- season) 2023 05/31/2022, 08/15/2021, 01/05/2021, Additional history exists HbA1c 06/29/2023 06/29/2022, 11/09, 05/29/2021, Additional history exists Depression Screening 11/28/2023 11/27/2022 Cervical Cancer Screening 12/16/2023 Pap Smear 12/16/2023 12/15/2020, 12/10, 01/06/2013, Additional history exists Cologuard 01/03/2024 01/02/2021 Colorectal Cancer Screening 01/03/2024 Mammogram 01/08/2024 01/07/2023, 12/10, 12/25/2021, Additional history exists Lipid Panel 06/29/2027 06/29/2022, 11/09, 11/27/2020, Additional history exists DTaP,Tdap,and Td Vaccines (3 - Td or Tdap) 05/29/2031 05/29/2021, 05/01/2009 Zoster Vaccines Completed 11/27/2021, 05/29/2021 LUNG CANCER SCREENING - USE SMARTSET 09304 Completed 12/27/2022, 12/13/2021 Influenza Vaccine (FLU shot) Completed , 05/29/2022, 05/09/2021, Additional history exists GARDASIL-HPV IMMUNIZATION SERIES Aged Out No longer eligible based on patient's age to complete this topic MENINGOCOCCAL (MENACTRA/MENVEO) Aged Out No longer eligible based on patient's age to complete this topic documented as of this encounter Medical Devices Implanted Type Area Subassembly Assembler Device Identifier Shelf Expiration Date Model / Serial / Lot Dbx 10cc [id number] - [id number] - [id number] Implanted:Qty : 1 on 05/04/2018 by Mihn Shannon MD at OR [facility] [place] Tissue - Human N/A: Spine Lumbar MUSCULOSKELETAL TRANSPLANT FND 11/27/2019 [id number] / [id number] / Chip Cancellous 30cc [id number] - [id number] - [id number] Implanted:Qty : 1 on 05/04/2018 by Minh Shannon MD at OR [facility] [place] Tissue - Human N/A: Spine Lumbar MUSCULOSKELETAL TRANSPLANT FND 03/16/2021 [id number] / [id number] / Vitoss Bimodal Foam Pack 5cc - [id number] Implanted:Qty : 1 on 05/04/2018 by Minh Shannon MD at OR [facility] [place] N/A: Spine Lumbar MONTSERRAT : SPINE 01/05/2019 [id number] / / [id number] 6.5 X 50 Mitchell Screw Implanted:Qty : 2 on 05/04/2018 by Minh Shannon MD at OR [facility] N/A: Spine Lumbar MONTSERRAT 05/05/2018 [id number] / / Description:in set 6.5 X 45 Mitchell Screw Implanted:Qty : 2 on 05/04/2018 by Minh Shannon MD at OR [facility] N/A: Spine Lumbar MONTSERRAT 05/05/2018 [id number] / / Description:in set Screw Delon Fariba 3 Ti Set - [id number] Implanted:Qty : 4 on 05/04/2018 by Minh Shannon MD at OR [facility] N/A: Spine Lumbar MON[place]ERRAT : SPINE 05/05/2018 [id number] / / Description:in set Dennis Fariba 3 Ti 6x40mm - [id number] Implanted:Qty : 1 on 05/04/2018 by Minh Shannon MD at OR [facility] N/A: Spine Lumbar MON[place]ERRAT : SPINE 05/05/2018 [id number] / / Description:in set Dennis Fariba 3 Ti 6x35mm - [id number] Implanted:Qty : 1 on 05/04/2018 by Minh Shannon MD at OR [facility] N/A: Spine Lumbar MONTSERRAT : SPINE 05/05/2018 [id number] / / Description:in set documented as of this encounter Visit Diagnoses Diagnosis Dyslipidemia, goal LDL below 130 Other and unspecified hyperlipidemia Prediabetes Other abnormal glucose Dysuria Hematuria Hematuria, unspecified documented in this encounter Advance Directives Documents on File Type Date Recorded 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 Care Teams Chief Lending Officer Relationship Specialty Start Date End Date Rommel Bravo DO [address] [place] [place] [id number] PCP - General Family Medicine 11/13/20 documented as of this encounter
--- OUTSIDE RECORDS SUMMARY | 2023-11-11 01:02 | External Medical Summary | Summary of Care ---
Author Name Unknown Organization [facility] Address [address] [place] [address] Phone [phone] Care Team Providers Care Referral Clerk Name Role Phone Rommel Bravo DO Primary Care Provider Reason for Visit * Reason Comments Outpatient Testing Encounter Details Date Type Department Care Team (Late st Contact Info) Description 10/30/2023 3:00 PM EDT Laboratory Laboratory, [facility] [address] [place] [id number] [facility] [address] [place] [address] Dyslipidemia, goal LDL below 130; Prediabetes; Dysuria; Hematuria Allergies Active Allergy Reactions Criticality Noted Date Comments Betaine High 05/29/2021 cocamidoproplyl Betaine Blue Dyes (Parenteral) High 05/29/2021 Disperse Blue 106 Glutathione High 05/29/2021 Neomycin Anaphylaxis High 05/29/2021 Fluoxetine Edema face/lips/tongue High 01/01/2022 Tea Tree Oil Rash Low 05/29/2021 Trypsin-Dailey Oil-[place] Balsam High 05/29/2021 Bupropion 10/01/2006 Chest pain [...] 3:20 PM EDT Office Visit Family Practice [facility] [address] [place] [address] Lili Miller CRNP [address] [address] 11/24/2023 9:30 AM EDT Telemedicine Interventional Pain Center, [facility] [address] [address] Stacey Hemphill PA-C [address] [place] [address] 11/27/2023 9:00 AM EDT Office Visit Cardiology, [facility] [address] [place] [address] Ewa Conteh CRNP [address] [place] [address] 11/27/2023 1:40 PM EDT Office Visit [facility] Practice [facility] [address] [place] [address] Faiza Bennett CRNP [address] [place] [address] 12/31/2023 10:45 AM EDT Imaging Radiology [facility] [address] [place] [address] 06/01/2024 1:00 PM EDT Office Visit [facility] [address] [place] [address] Rommel Bravo, [address] [place] [address] Pending Results Name Type Priority Associated Diagnoses [...] 05/29/2021 LUNG CANCER SCREENING - USE SMARTSET 04975 Completed 12/27/2022, 12/13/2021 Influenza Vaccine (FLU shot) Completed , 05/29/2022, 05/09/2021, Additional history exists GARDASIL-HPV IMMUNIZATION SERIES Aged Out No longer eligible based on patient's age to complete this topic MENINGOCOCCAL (MENACTRA/MENVEO) Aged Out No longer eligible based on patient's age to complete this topic documented as of this encounter Medical Devices Implanted Type Area Concrete Pointer Device Identifier Shelf Expiration Date Model / Serial / Lot Dbx 10cc [id number] - [id number] - [id number] Implanted:Qty : 1 on 05/04/2018 by Minh Shannon [place] [facility] [place] - Human N/A: Spine Lumbar MUSCULOSKELETAL TRANSPLANT FND 11/27/2019 [id number] / [id number] / Chip Cancellous 30cc [id number] - [id number] - [id number] Implanted:Qty : 1 on 05/04/2018 by Minh Shannon MD [place] [facility] [place] Tissue - Human N/A: Spine Lumbar MUSCULOSKELETAL TRANSPLANT FND 03/16/2021 [id number] / [id number] / Vitoss Bimodal Foam Pack 5cc - [id number] Implanted:Qty : 1 on 05/04/2018 by Minh Shannon MD [place] [facility] [place] N/A: Spine Lumbar MONTSERRAT : SPINE 01/05/2019 [id number] / / [id number] 6.5 X 50 Mitchell Screw Implanted:Qty : 2 on 05/04/2018 by Minh Shannon MD [place] [facility] [place] N/A: Spine Lumbar MONTSERRAT 05/05/2018 [id number] / / Description:in set 6.5 X 45 Mitchell Screw Implanted:Qty : 2 on 05/04/2018 by Minh Shannon MD [place] [facility] [place] N/A: Spine Lumbar MONTSERRAT 05/05/2018 [id number] / / Description:in set Screw Delon Fariba 3 Ti Set - [id number] Implanted:Qty : 4 on 05/04/2018 by Minh Shannon MD at [place] [facility] [place] N/A: Spine Lumbar MONTSERRAT : SPINE 05/05/2018 [id number] / / Description:in set Dennis Fariba 3 Ti 6x40mm - [id number] Implanted:Qty : 1 on 05/04/2018 by Minh Shannon MD at [place] [facility] [place] N/A: Spine Lumbar MONTSERRAT : SPINE 05/05/2018 [id number] / / Description:in set Dennis Fariba 3 Ti 6x35mm - [id number] Implanted:Qty : 1 on 05/04/2018 by Minh Shannon MD at [place] [facility] [place] N/A: Spine Lumbar MONTSERRAT : SPINE 05/05/2018 [id number] / / Description:in set documented as of this encounter Visit Diagnoses Diagnosis Dyslipidemia, goal LDL below 130 Other and unspecified hyperlipidemia Prediabetes Other abnormal glucose Dysuria Hematuria Hematuria, unspecified documented in this encounter Advance Directives Documents on File Type Date Recorded Patient 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 Care Teams Referral Clerk Relationship Specialty Start Date End Date Rommel Bravo DO [address] [place] [address] PCP - General Family Medicine 11/13/20 documented as of this encounter
--- OUTSIDE RECORDS SUMMARY | 2023-11-11 01:03 | External Medical Summary | Summary of Care ---
Author Name Unknown Organization [facility] Address [address] [place] [address] Phone [phone] Care Team Providers Care Pad Assembler Name Role Phone Rommel Bravo DO Primary Care Provider Reason for Visit * Reason Comments Follow Up Left knee pain * Evaluate & Treat - Unlimited Visits (Within 10 days (routine)) - Pending Review Specialty Diagnoses / Procedures Referred By Mack cox Referred To Contact Orthopaedic Surgery / Orthopedics Diagnoses Knee pain, left Rommel Bravo DO [address] [place] [address] Referral ID Status Reason Start Date Expiration Date Visits Requested Visits Authorized [id number] Pending Review Specialty Services Required 09/15/[phone] Encounter Details Date Type Department Care Team (Latest Contact Info) Description 10/13/2023 8:00 AM EST Office Visit Orthopaedics [facility] [address] [place] [address] Maurice Duke DO [address] [place] [address] Chronic pain of left knee*; Primary osteoarthritis of left knee Allergies Active Allergy Reactions Criticality Noted Date Comments Betaine High 05/29/2021 cocamidoproplyl Betaine Blue Dyes (Parenteral) High 05/29/2021 Disperse Blue 106 Glutathione High 05/29/2021 Neomycin Anaphylaxis High 05/29/2021 Fluoxetine Edema face/lips/tongue High 01/01/2022 Tea Tree Oil Rash Low 05/29/2021 Trypsin-[place] Oil-[place] Balsam High 05/29/2021 Bupropion 10/01/2006 Chest pain and cyanosis documented as of this encounter (statuses as of 10/13/2023) Medications Medication Sig Dispensed Refills Start Date [...] mg NEBULIZER ONCE PRN 2023 08/27/2024 Active lidocaine 1% 1 mL - triamcinolone acetonide 40 mg/mL 1 mL inj 2 mLIndications:Primary osteoarthritis of left knee 2 mL IJ ONCE 10/13/2023 10/13/2023 Ended documented as of this encounter (statuses as of 10/13/2023) Active Problems Problem Noted Date Diagnosed Date Moderate episode of recurrent major depressive d isorder 2023 Prediabetes 01/23/2021 Overview: Per Prediabetes protocol Pap smear for cervical cancer screening 12/16/19 21 Sacroiliitis 11/27/2020 Lumbar radiculopathy 05/05/2018 DDD (degenerative disc disease), lumbar 05/05/20 18 Esophageal reflux 07/03/2009 Insomnia 10/01/2006 Overview: ICD-10 update of inactive term documented as of this encounter (statuses as of 10/13/2023) Resolved Problems Problem Noted Date Diagnosed Date Resolved Date Tobacco use disorder 04/29/2008 009 ADJ DISORDER W/DEPRES MOOD 10/08/2006 0 11/27/2021 Overview: Was on wellbutrin (not effective), paxil (chest hurts) Zoloft worked. See scanned records from 10/01/2006 documented as of this encounter (statuses as of 10/13/2023) Immunizations Name Administration Dates Next Due COVID-19 mRNA, LNP-s, No Pre serve, 2-Dose Series (Geodruid) 01/05/2021,12/15/2020 COVID-19, mRNA, LNP-s, PF, B ooster, 100mcg/0.5mg (Moderna) 08/15/2021 Covid-19, Mrna, Lnp-s, Pf, B ivalent, 30 Mcg, IM, 12 yrs and above (Geodruid) 05/31/2022 Seasonal Influenza, PF, 6 M & [...] 0 03/11/1986 - 03/11/2009 Smokeless Tobacco: Never Tobacco Cessation:Counseling Given: No Comments:nicotene gum Alcohol Use Standard Drinks/Week Comments [...] on file documented as of this encounter Last Filed Vital Signs Vital Sign Reading Time Taken Comments Blood Pressure - - Pulse - - Temperature - - Respiratory Rate - - Oxygen Saturation - - Inhaled Oxygen Concentration - - Weight 81.6 kg (180 lb) 10/13/2023 7:38 AM EST Height 157.5 cm (5' 2") 10/13/2023 7:38 AM EST Body Mass Index 32.92 10/13/2023 7:38 AM EST documented in this encounter Functional Status Functional Status Response [...] No 05/04/2018 documented as of this encounter Progress Notes * Maurice Duke DO - 10/13/2023 8:00 AM EST Meagan Chapman [phone] Meagan Chapman is a 58 year old female who presents for consultation to [facility] for left knee injury/pain. Consult requested by Rommel Bravo DO. Meagan Chapman is here unaccompanied Date of Injury: pain since January 2019. History: History - Seen by me on 04/27/2019. Please see that note for details had aspiration and injection. Then had follow up May 18, 2019. Was doing well. Has not been seen in follow up since. TODAY: Feels as if knee injection has worn off. Of note she no longer has a job where she stands [employer]. She is hoping today if indicated that she will receive another steroid injection. Modifying factors: activity exacerbates Associated symptoms: Swelling - negative , locking - negative , Knee giving way - negative Patient has tried ibuprofen and tylenol. No formal physical therapy. Previous knee injuries include: -no previous knee injuries or surgeries ROS EXAM:Constitional: No change in weight, No weakness, No fatigue, and No fevers, sweats, or chills Past Medical History: Diagnosis Date ADJ DISORDER W/DEPRES MOOD 10/08/2006 Was on wellbutrin (not effective), paxil (chest hurts) Zoloft worked. See scanned records from 10/01/2006 Anterolisthesis of L4 and L5 Bulging lumbar disc L5-S1 Esophageal reflux 07/03/2009 Herniation of intervertebral disc of lumbar region at L5-S1 Insomnia 10/01/2006 ICD-10 update of inactive term Lumbar pain Stenosis of lateral recess of multiple levels of spinal canal L4-L5 Varicella 1970 Family History Problem Relation Age of Onset Heart Disorder Grandmother (Maternal) [place] at young age No Known Problems Grandfather (Maternal) Diabetes Grandmother (Paternal) Eczema Father Heart attack Father Lung cancer Father Other (back problems) Father Other (heart problems) Father No Known Problems Mother No Known Problems Sister No Known Problems Brother No Known Problems Daughter No Known Problems Son Social History Socioeconomic History Marital status: Spouse name: Not on file Number of children: Not on file Years of education: Not on file Highest education level: Not on file Occupational History Occupation: [employer] Employer: [employer] Tobacco Use Smoking status: Former Current packs/day: 0.00 Average packs/day: 1 pack/day for 23.0 years (23.0 ttl pk-yrs) Types: Cigarettes Start date: 03/11/1986 Quit date: 03/11/2009 Years since quittin.5 Smokeless tobacco: Never Tobacco comments: nicotene gum Vaping Use Vaping Use: Never used Substance and Sexual Activity Alcohol use: Yes Alcohol/week: 20.0 standard drinks of alcohol Types: 24 12 oz of beer per week Comment: beer daily Drug use: No Sexual activity: Yes Partners: Male Comment: BTL Other Topics Concern Not on file Social History Narrative Not on file Social Determinants of Health Financial Resource Strain: Not on file Food Insecurity: No Food Insecurity (12/15/2020) Hunger Vital Sign Worried About Running Out of Food in the Last Year: Never true Ran Out of Food in the Last Year: Never true Transportation Needs: Not on file Physical Activity: Not on file Stress: Not on file Social Connections: Not on file Intimate Partner Violence: Not on file Housing Stability: Not on file Current Outpatient Medications Medication Sig Dispense Refill Ibuprofen 200 MG Oral Capsule Take 2 Capsules by mouth every 6 hours as needed. Naproxen 500 MG Oral Tablet (Naprosyn) TAKE ONE TABLET BY MOUTH TWICE DAILY NEEDED FOR PAIN, TAKE WITH FOOD 40 Tablet 1 Rosuvastatin Calcium 10 MG Oral Tablet (Crestor) TAKE ONE TABLET BY MOUTH IN THE MORNING 30 Tablet 11 Cyclobenzaprine HCl 10 MG Oral Tablet (Flexeril) TAKE 1 TABLET BY MOUTH TWICE DAILY NEEDED FOR MUSCLE SPASMS 30 Tablet 1 Citalopram Hydrobromide 40 MG Oral Tablet (CeleXA) Take 1 Tablet by mouth in the morning. 90 Tablet5 ProAir HFA 108 (90 Base) MCG/ACT Inhalation Aerosol Solution Inhale 2 Puffs by mouth in the morningand 2 Puffs at noon and 2 Puffs in the evening and 2 Puffs before bedtime. 25.5 g 3 Current Facility-Administered Medications Medication Dose Route Frequency Provider Last Rate Last Admin Albuterol Sulfate (Proventil) (2.5 MG/3ML) 0.083% inhalation solution 2.5 mg 2.5 mg Nebulizer Once PRN Rommel Bravo DO 2.5 mg at 09/04/23 1248 Physical Exam General: in no acute distress Mood and Affect: normal Gait and Station: mildly antalgic Knee Exam, bilateral Alignment: normal Bilateral Effusion: negative Bilateral Palpation: tenderness to palpation at medial joint line on the left ROM: R - Flexion - 120 degrees, Extension - 0 degrees L - Flexion - 120 degrees, Extension -0 degrees R- Strength: Extension - 5/5 Flexion - 5/5 L - Strength: Extension - 5/5 Flexion - 5/5 Ligament tests/stability: Grossly stable no appreciable deficits of the ACL, PCL, MCL, LCL, bilateral Meniscus tests: Hua - negative Left Thessaly test - negative Left Popliteal mass - negative Bilateral Patellar tests: Ananda's negative Bilateral Grind negative Bilateral Ileotibial band: Leone compression test- negative Bilateral Pes anserine testing negative on the left Radiology (I have personally reviewed the films done today and compared to 04/27/2019): Left knee x-ray reveals no fracture and moderate medial knee arthritis Assessment and Plan: Discussed today with the patient the risks and benefit of IA steroids, SMITH/ visco-supplemetnation injections, and PRP. After and informed discussion we elected to try intra-articular steroids. Please see procedure note. She will MyChart an update in 2 weeks. Then most likely we will follow up p.r.n. 1) Chronic pain of left knee (Primary) - XR KNEE 3 VIEWS Primary osteoarthritis of left knee - lidocaine 1% 1 mL - triamcinolone acetonide 40 mg/mL 1 mL inj 2 mL - INJECT MAJOR JX/BURSA W/O US GUIDE Maurice Duke DO Primary Care Sports Medicine Orthopaedics [facility] [address] [facility] [place] [address] Procedure note (knee injection), left : Time out: Prior to injection, a time out was called to confirm the administration of appropriate medicine, patient name, procedure and confirm to the best of our ability and knowledge the presence of any necessary risks and benefits. Patient verbalizes understanding. proper approach defined Sterile techinique applied. Skin sterilized with alcohol swab. Knee injected using 1.5 inch, 22 gauge needle. Injected with lidocaine 1% 1 mL - triamcinolone acetonide 40 mg/mL 1 mL inj 2 mL Patient tolerated procedure with no significant bleeding or adverse reaction. Patient instructed to call or return to clinic for fever or warmth and redness at injection site for potential infection. Patient also advised as to potential for steroid flare reaction including increased pain and redness at injection site which should be treated with ice and resolve within 24 hours. Maurice Duke DO documented in this encounter Nursing Notes * Karla Tong LPN - 10/13/2023 7:39 AM EST F/u last seen in 2019 for left knee pain Patient notes pain 3/10 has returned about 2 years ago Patient notes injection lasted a long time wearing bracing and using Aspercreme. documented in this encounter Plan of Treatment Upcoming Encounters Date Type Department Care Team (Late st Contact Info) Description 11/24/2023 9:30 AM EDT Telemedicine Interventional Pain Center, [facility] [address] [address] Stacey Hemphill PA-C [address] [place] [address] 11/27/2023 9:00 AM EDT Office Visit Cardiology, [facility] [address] [address] Ewa Conteh CRNP [address] [place] [address] 11/27/2023 1:40 PM EDT Office Visit Family Practice [facility] [address] [address] Faiza Bennett, ELBA [address] [place] [address] 12/31/2023 10:45 AM EDT Imaging Radiology [address] [place] [address] 06/01/2024 1:00 PM EDT Office Visit Family Practice [facility] [address] [place] [address] Rommel Bravo, [address] [place] [address] Pending Results Name Type Priority Associated Diagnoses Date /Time XR KNEE 3 VIEWS Medical Imaging Routine Chronic pain of left knee 10/13/2023 7:51 AM EST Scheduled Orders Name Type Priority Associated Diagnoses Orde r Schedule INJECT MAJOR JX/BURSA W/O US GUIDE Procedures Routine Primary osteoarthritis of left knee Ordered: 10/13/2023 Health Maintenance Due Date Last Done Comments Pneumococcal Vaccine: Pediatrics (0 to 5 Years) and At-Risk Patients (6 to 64 Years) (1 of 2 - PCV) 1971 Hepatitis B (1 of 3 - 19+ 3-dose series) 1984 HPV/Co-Test 1995 Colonoscopy 2010 Fecal Occult Blood Test 2010 Sigmoidoscopy 2010 COVID-19 Vaccine ( season) 2023 05/31/2022, 08/15/2021, 01/05/2021, Additional history [...] 05/29/2021 LUNG CANCER SCREENING - USE SMARTSET 38630 Completed 12/27/2022, 12/13/2021 Influenza Vaccine (FLU shot) Completed , 05/29/2022, 05/09/2021, Additional history exists GARDASIL-HPV IMMUNIZATION SERIES Aged Out No longer eligible based on patient's age to complete this topic MENINGOCOCCAL (MENACTRA/MENVEO) Aged Out No longer eligible based on patient's age to complete this topic documented as of this encounter Medical Devices Implanted Type Area Director Digital Advertising Device Identifier Shelf Expiration Date Model / Serial / Lot Dbx 10cc [id number] - [id number] - [id number] Implanted:Qty : 1 on 05/04/2018 by Minh Shannon MD [place] [facility] [place] Tissue - Human N/A: Spine Lumbar MUSCULOSKELETAL TRANSPLANT FND 11/27/2019 [id number] / [id number] / Chip Cancellous 30cc [id number] - [id number] - [id number] Implanted:Qty : 1 on 05/04/2018 by Minh Shannon MD [place] [facility] [place] Tissue - Human N/A: Spine Lumbar MUSCULOSKELETAL TRANSPLANT FND 03/16/2021 [id number] / [id number] / Vitoss Bimodal Foam Pack 5c - [id number] Implanted:Qty : 1 on 05/04/2018 by Minh Shannon MD [place] [facility] [place] N/A: Spine Lumbar MONTSERRAT : SPINE 01/05/2019 [id number] / / [id number] 6.5 X 50 Mitchell Screw Implanted:Qty : 2 on 05/04/2018 by Minh Shannon MD [place] [facility] [place] N/A: Spine Lumbar MONTSERRAT 05/05/2018 [id number] / / Description:in set 6.5 X 45 Mitchell Screw Implanted:Qty : 2 on 05/04/2018 by Minh Shannon MD [place] [facility] [place] N/A: Spine Lumbar MONTSERRAT 05/05/2018 [id number] / / Description:in set Screw Delon Fariba 3 Ti Set - [id number] Implanted:Qty : 4 on 05/04/2018 by Minh Shannon MD at [place] [facility] [place] N/A: Spine Lumbar MONTSERRAT : SPINE 05/05/2018 [id number] / / Description:in set Dennis Fariba 3 Ti 6x40mm - [id number] Implanted:Qty : 1 on 05/04/2018 by Minh Shannon MD at [place] [facility] [place] N/A: Spine Lumbar MONTSERRAT : SPINE 05/05/2018 [id number] / / Description:in set Dennis Fariba 3 Ti 6x35mm - [id number] Implanted:Qty : 1 on 05/04/2018 by Minh Shannon MD at [place] [facility] [place] N/A: Spine Lumbar MONTSERRAT : SPINE 05/05/2018 [id number] / / Description:in set documented as of this encounter Visit Diagnoses Diagnosis Chronic pain of left knee- Primary Pain in joint, lower leg Primary osteoarthritis of left knee Primary localized osteoarthrosis, lower leg documented in this encounter Administered Medications Inactive Administered Medications - up to 3 most recent administrations Medication Order MAR Action Action Date Dose Rate Site lidocaine 1% 1 mL - triamcinolone acetonide 40 mg/mL 1 mL inj 2 mL 2 mL, Injection, ONCE, On Fri10/13/23 at 0900, For 1 dose, Lidocaine 1% 1mL Triamcinolone Acetonide 40 mg/mL 1 mL (Final concentration = 20 mg/mL) REFRIGERATE and SHAKE WELL Given 10/13/2023 9:24 AM EST 2 mL Knee Left documented in this encounter Advance Directives Documents on File Type Date Recorded Patient Junior Systems Administrator Expl anation Power of Configuration Management Consultant 10/28/2015 POWER OF A TTORNEY Latest Code Status on File Code Status Date Activated Date Inactivated Comments Full Code 05/04/2018 5:46 AM 05/07/2018 4:17 PM This order reflects the patients wishes and were consensually agreed upon. Care Teams Pad Assembler Relationship Specialty Start Date End Date Rommel Bravo DO [address] [place] [address] PCP - General Family Medicine 11/13/20 documented as of this encounter
--- OUTSIDE RECORDS SUMMARY | 2023-11-11 01:03 | External Medical Summary ---
Author Name Unknown Address Unknown Organization [facility] [address] [place] [address] Laboratory Report Ordering Provider Test Date Status ZOILA CHOUDHARY 10/30/2023 15:05:54 Final Observation Date Value Abnormality Reference (Units ) Status Color of Urine by Auto 10/30/2023 15:05:54 Yellow Light Yellow, Yellow, Dark Yellow Final Clarity, Urine 10/30/2023 15:05:54 Clear Clear Final Glucose [Mass/volume] in Urine by Automated test strip 10/30/2023 15:05:54 Negative Negative (mg/dL) Final Bilirubin.total [Presence] in Urine by Automated test strip 10/30/2023 15:05:54 Negative Negative Final Ketones [Mass/volume] in Urine by Automated test strip 10/30/2023 15:05:54 Negative Negative (mg/dL) Final Specific gravity, Urine 10/30/2023 15:05:54 <=1.005 1.003-1.030 Final Hemoglobin [Presence] in Urine by Automated test strip 10/30/2023 15:05:54 Negative Negative Final pH, Urine 10/30/2023 15:05:54 6.5 5.0-7.5 (Units) Final Protein [Mass/volume] in Urine by Automated test strip 10/30/2023 15:05:54 Negative Negative (mg/dL) Final Urobilinogen [Mass/volume] in Urine by Automated test strip 10/30/2023 15:05:54 0.2 0.2, 1.0 (mg/dL) Final Nitrite [Presence] in Urine by Automated test strip 10/30/2023 15:05:54 Negative Negative Final Leukocyte esterase [Presence] in Urine by Automated test strip 10/30/2023 15:05:54 Negative Negative Final Annotation Comment 10/30/2023 15:05:54 Final Screen negative - Microscopi c not performed. Performing Location [facility] [address] [place] [address]
--- OUTSIDE RECORDS SUMMARY | 2023-11-11 01:03 | External Medical Summary ---
Author Name Unknown Address Unknown Organization [id number]:[facility] [place] [address] [facility] [address] Laboratory Report Ordering Provider Test Date Status ZOILA CHOUDHARY 10/30/2023 14:39:26 Final Observation Date Value Abnormality Reference (Units ) Status Triglyceride 10/30/2023 14:39:26 221 Above high normal <=174 (mg/dL) Final Triglyceride Reference Range s (mg/dL):
<150 Acceptable
150-174 Borderline high
175-499 High
>=500 Very high Cholesterol 10/30/2023 14:39:26 312 Above high normal <200 (mg/dL) Final Total Cholesterol Reference Ranges (mg/dL):
<200 Desirable
200-239 Borderline high
>=240 High HDL 10/30/2023 14:39:26 86 >49 (mg/dL ) Final HDL Cholesterol Reference Ra nges (mg/dL):
>=60 High (Desirable)
<50 Low (Undesirable) For Females
<40 Low (Undesirable) For Males NON-HDL CHOLESTEROL 10/30/2023 14:39:26 226 Above high normal <=159 (mg/dL) Final Non-HDL Cholesterol Referenc e Range (mg/dL):
<100 Target level for high risk ASCVD patient
<130 Optimal for general population
130-159 Near optimal for general population
160-189 Borderline High
190-219 High
>=220 Very High LDL, (calculated) 10/30/2023 14:39:26 182 Above high n ormal <=129 (mg/dL) Final LDL Cholesterol Reference Ra nges (mg/dL):
<70 Target level for high risk ASCVD patient
<100 Optimal for general population
100-129 Near optimal for general population
130-159 Borderline high
160-189 High
>=190 Very high Performing Location [facility] [place] [address] [facility] [address]
--- OUTSIDE RECORDS SUMMARY | 2023-11-11 01:03 | External Medical Summary | Summary of Care ---
Author Name Unknown Organization [facility] Address [address] [place] [address] Phone [phone] Care Team Providers Care Money Manager Name Role Phone Rommel Bravo Primary Care Provider Encounter Details Date Type Department Care Team ([facility] st Contact Info) Description 10/15/2023 Patient Reported Data Patient Survey Ortho OBERD Allergies Active Allergy Reactions Criticality Noted Date Comments Betaine High 05/29/2021 cocamidoproplyl Betaine Blue Dyes (Parenteral) High 05/29/2021 Disperse Blue 106 Glutathione High 05/29/2021 Neomycin Anaphylaxis High 05/29/2021 Fluoxetine Edema face/lips/tongue High 01/01/2022 Tea Tree Oil Rash Low 05/29/2021 Trypsin-[place] Oil-[place] Balsam High 05/29/2021 Bupropion 10/01/2006 Chest pain and cyanosis documented as of this encounter (statuses as of 10/15/2023) Medications Medication Sig Dispensed Refills Start Date [...] as of this encounter (statuses as of 10/15/2023) Active Problems Problem Noted Date Diagnosed Date Moderate episode of recurrent major depressive d isorder 2023 Prediabetes 01/23/2021 Overview: Per Prediabetes protocol Pap smear for cervical cancer screening 12/16/19 21 Sacroiliitis 11/27/2020 Lumbar radiculopathy 05/05/2018 DDD (degenerative disc disease), lumbar 05/05/20 18 Esophageal reflux 07/03/2009 Insomnia 10/01/2006 Overview: ICD-10 update of inactive term documented as of this encounter (statuses as of 10/15/2023) Resolved Problems Problem Noted Date Diagnosed Date Resolved Date Tobacco use disorder 04/29/2008 009 ADJ DISORDER W/DEPRES MOOD 10/08/2006 0 11/27/2021 Overview: Was on wellbutrin (not effective), paxil (chest hurts) Zoloft worked. See scanned records from 10/01/2006 documented as of this encounter (statuses as of 10/15/2023) Immunizations Name Administration Dates Next Due COVID-19 [...] (15 years old or older) No 05/04/20 Cognitive Status Response Date of Assessm ent Because of a physical, menta l, or emotional condition, do you have serious difficulty concentrating, remembering, or making decisions? (5 years old or older) No 05/04/2018 documented as of this encounter Plan of Treatment Upcoming Encounters Date Type Department Care Team (Late st Contact Info) Description 11/24/2023 9:30 AM EDT Telemedicine Interventional Pain Center, [facility] [address] [address] Stacey Hemphill PA-C [address] [place] [address] 11/27/2023 9:00 AM EDT Office Visit Cardiology, [facility] [address] [address] Ewa Conteh CRNP [address] [place] [address] 11/27/2023 1:40 PM EDT Office Visit Family Practice [facility] [address] [address] Faiza Bennett CRNP [address] [place] [address] 12/31/2023 10:45 AM EDT Imaging Radiology [facility] 1st [facility] [place] [address] [place] [address] 06/01/2024 1:00 PM EDT Office Visit Family Practice [facility] [address] [place] [address] Rommel Bravo, [address] [place] [address] Health Maintenance Due Date Last Done Comments [...] 05/29/2021 LUNG CANCER SCREENING - USE SMARTSET 66836 Completed 12/27/2022, 12/13/2021 Influenza Vaccine (FLU shot) Completed , 05/29/2022, 05/09/2021, Additional history exists GARDASIL-HPV IMMUNIZATION SERIES Aged Out No longer eligible based on patient's age to complete this topic MENINGOCOCCAL (MENACTRA/MENVEO) Aged Out No longer eligible based on patient's age to complete this topic documented as of this encounter Medical Devices Implanted Type Area Yard Demurrage Clerk Device Identifier Shelf Expiration Date Model / Serial / Lot Dbx 10cc [id number] - [id number] - [id number] Implanted:Qty : 1 on 05/04/2018 by Minh Shannon MD at [place] [facility] [place] Tissue - Human N/A: Spine Lumbar MUSCULOSKELETAL TRANSPLANT FND 11/27/2019 [id number] / [id number] / Chip Cancellous 30cc [id number] - [id number] - [id number] Implanted:Qty : 1 on 05/04/2018 by Minh Shannon MD at OR [facility] [place] Tissue - Human N/A: Spine Lumbar MUSCULOSKELETAL TRANSPLANT FND 03/16/2021 [id number] / [id number] / Vitoss Bimodal Foam Pack 5cc - [id number] Implanted:Qty : 1 on 05/04/2018 by Minh Shannon MD at OR [facility] [place] N/A: Spine Lumbar MONTSERRAT : SPINE 01/05/2019 [id number] / / [id number] 6.5 X 50 Mitchell Screw Implanted:Qty : 2 on 05/04/2018 by Minh Shannon MD at OR [facility] [place] N/A: Spine Lumbar MONTSERRAT 05/05/2018 [id number] / / Description:in set 6.5 X 45 Mitchell Screw Implanted:Qty : 2 on 05/04/2018 by Minh Shannon MD at OR [facility] [place] N/A: Spine Lumbar MONTSERRAT 05/05/2018 [id number] / / Description:in set Screw Delon Fariba 3 Ti Set - [id number] Implanted:Qty : 4 on 05/04/2018 by Minh Shannon MD at OR [facility] [place] N/A: Spine Lumbar MONTSERRAT : SPINE 05/05/2018 [id number] / / Description:in set Dennis Fariba 3 Ti 6x40mm - [id number] Implanted:Qty : 1 on 05/04/2018 by Minh Shannon MD at OR [facility] [place] N/A: Spine Lumbar MONTSERRAT : SPINE 05/05/2018 [id number] / / Description:in set Dennis Fariba 3 Ti 6x35mm - [id number] Implanted:Qty : 1 on 05/04/2018 by Minh Shannon MD at OR [facility] [place] N/A: Spine Lumbar MONTSERRAT : SPINE 05/05/2018 [id number] / / Description:in set documented as of this encounter Advance Directives Documents on File Type Date Recorded Patient 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 Care Teams Money Manager Relationship Specialty Start Date End Date Rommel Bravo DO [address] [address] PCP - General Family Medicine 11/13/20 documented as of this encounter
--- OUTSIDE RECORDS SUMMARY | 2023-11-11 01:03 | External Medical Summary | Summary of Care ---
Author Name Unknown Organization [facility] Address [address] [place] [address] Phone [phone] Care Team Providers Care Profiler Name Role Phone Rommel Bravo DO Primary Care Provider Encounter Details Date Type Department Care Team ([facility] st Contact Info) Description 10/27/2023 Orders Only PATIENT PORTAL DO NOT DELETE THIS DEPT USED BY [address] [id number] Allergies Active Allergy Reactions Criticality Noted Date Comments Betaine High 05/29/2021 cocamidoproplyl Betaine Blue Dyes (Parenteral) High 05/29/2021 Disperse Blue 106 Glutathione High 05/29/2021 Neomycin Anaphylaxis High 05/29/2021 Fluoxetine Edema face/lips/tongue High 01/01/2022 Tea Tree Oil Rash Low 05/29/2021 Trypsin-[place] Oil-[place] Balsam High 05/29/2021 Bupropion 10/01/2006 Chest pain and cyanosis documented as of this encounter (statuses as of 10/27/2023) Medications Medication Sig Dispensed Refills Start Date [...] as of this encounter (statuses as of 10/27/2023) Active Problems Problem Noted Date Diagnosed Date Moderate episode of recurrent major depressive d isorder 2023 Prediabetes 01/23/2021 Overview: Per Prediabetes protocol Pap smear for cervical cancer screening 12/16/19 21 Sacroiliitis 11/27/2020 Lumbar radiculopathy 05/05/2018 DDD (degenerative disc disease), lumbar 05/05/20 18 Esophageal reflux 07/03/2009 Insomnia 10/01/2006 Overview: ICD-10 update of inactive term documented as of this encounter (statuses as of 10/27/2023) Resolved Problems Problem Noted Date Diagnosed Date Resolved Date Tobacco use disorder 04/29/2008 009 ADJ DISORDER W/DEPRES MOOD 10/08/2006 0 11/27/2021 Overview: Was on wellbutrin (not effective), paxil (chest hurts) Juan A worked. See scanned records from 10/01/2006 documented as of this encounter (statuses as of 10/27/2023) Immunizations Name Administration Dates Next Due COVID-19 [...] 3:20 PM EDT Office Visit Family Practice [facility] [address] [place] [place] [address] Lili Miller CRNP [address] [place] [address] 11/24/2023 9:30 AM EDT Telemedicine Interventional Pain Center, [facility] [address] [address] Stacey Hemphill PA-C [address] [place] [address] 11/27/2023 9:00 AM EDT Office Visit Cardiology, [facility] [address] [place] [address] Ewa Conteh CRNP [address] [place] [address] 11/27/2023 1:40 PM EDT Office Visit [facility] [address] [place] [address] Faiza Bennett CRNP [address] [place] [address] 12/31/2023 10:45 AM EDT Imaging Radiology [facility] 1st Floor, [place] [address] [place] [address] 06/01/2024 1:00 PM EDT Office Visit [facility] [address] [place] [address] Rommel Bravo, [address] [place] [address] Health Maintenance Due Date Last Done Comments [...] 05/29/2021 LUNG CANCER SCREENING - USE SMARTSET 97930 Completed 12/27/2022, 12/13/2021 Influenza Vaccine (FLU shot) Completed , 05/29/2022, 05/09/2021, Additional history exists GARDASIL-HPV IMMUNIZATION SERIES Aged Out No longer eligible based on patient's age to complete this topic MENINGOCOCCAL (MENACTRA/MENVEO) Aged Out No longer eligible based on patient's age to complete this topic documented as of this encounter Medical Devices Implanted Type Area Radiologist Physician Device Identifier Shelf Expiration Date Model / Serial / Lot Dbx 10cc [id number] - [id number] - [id number] Implanted:Qty : 1 on 05/04/2018 by Minh Shannon MD at [place] [facility] [place] Tissue - Human N/A: Spine Lumbar MUSCULOSKELETAL TRANSPLANT FND 11/27/2019 [id number] / [id number] / Chip Cancellous 30cc [id number] - [id number] - [id number] Implanted:Qty : 1 on 05/04/2018 by Minh Shannon MD at OR [facility] [place] Tissue - Human N/A: Spine Lumbar MUSCULOSKELETAL TRANSPLANT FND 03/16/2021 [id number] / [id number] / Vitoss Bimodal Foam Pack 5c - [id number] Implanted:Qty : 1 on 05/04/2018 by Minh Shannon MD at OR [facility] [place] N/A: Spine Lumbar MONTSERRAT : SPINE 01/05/2019 [id number] / / [id number] 6.5 X 50 Mitchell Screw Implanted:Qty : 2 on 05/04/2018 by Minh Shannon MD at [place] [facility] [place] N/A: Spine Lumbar MONTSERRAT 05/05/2018 [id number] / / Description:in set 6.5 X 45 Mitchell Screw Implanted:Qty : 2 on 05/04/2018 by Minh Shannon MD at [place] [facility] [place] N/A: Spine Lumbar MONTSERRAT 05/05/2018 [id number] / / Description:in set Screw Delon Fariba 3 Ti Set - [id number] Implanted:Qty : 4 on 05/04/2018 by Minh Shannon MD at [place] [facility] [place] N/A: Spine Lumbar MONTSERRAT : SPINE 05/05/2018 [id number] / / Description:in set Dennis Fariba 3 Ti 6x40mm - [id number] Implanted:Qty : 1 on 05/04/2018 by Minh Shannon MD at [place] [facility] [place] N/A: Spine Lumbar MONTSERRAT : SPINE 05/05/2018 [id number] / / Description:in set Dennis Fariba 3 Ti 6x35mm - [id number] Implanted:Qty : 1 on 05/04/2018 by Minh Shannon MD at [place] [facility] [place] N/A: Spine Lumbar MONTSERRAT : SPINE 05/05/2018 [id number] / / Description:in set documented as of this encounter Advance Directives Documents on File Type Date Recorded Patient Womens Volleyball Coach Expl anation Power of Anesthetic Assistant 10/28/2015 POWER OF A TTORNEY Latest Code Status on File Code Status Date Activated Date Inactivated Comments Full Code 05/04/2018 5:46 AM 05/07/2018 4:17 PM This order reflects the patients wishes and were consensually agreed upon. Care Teams Profiler Relationship Specialty Start Date End Date Rommel Bravo DO [address] [place] [address] PCP - General Family Medicine 11/13/20 documented as of this encounter
--- OUTSIDE RECORDS SUMMARY | 2023-11-11 01:03 | External Medical Summary | Summary of Care ---
Author Name Unknown Organization [facility] Address [address] [place] [address] Phone [phone] Care Team Providers Care Lithographic Stripper Name Role Phone Rommel Bravo DO Primary Care Provider Reason for Visit * Reason Comments Follow Up Left knee pain * Evaluate & Treat - Unlimited Visits (Within 10 days (routine)) - Pending Review Specialty Diagnoses / Procedures Referred By Mack cox Referred To Contact Orthopaedic Surgery / Orthopedics Diagnoses Knee pain, left Rommel Bravo DO [address] [place] [address] Referral ID Status Reason Start Date Expiration Date Visits Requested Visits Authorized [id number] Pending Review Specialty Services Required 09/15/[phone] Encounter Details Date Type Department Care Team (Latest Contact Info) Description 10/13/2023 8:00 AM EST Office Visit Orthopaedics [facility] [address] [place] [address] Maurice Duke DO [address] [place] [address] Chronic pain of left knee*; Primary osteoarthritis of left knee Allergies Active Allergy Reactions Criticality Noted Date Comments Betaine High 05/29/2021 cocamidoproplyl Betaine Blue Dyes (Parenteral) High 05/29/2021 Disperse Blue 106 Glutathione High 05/29/2021 Neomycin Anaphylaxis High 05/29/2021 Fluoxetine Edema face/lips/tongue High 01/01/2022 Tea Tree Oil Rash Low 05/29/2021 Trypsin-[place] Oil-[place] Balsam High 05/29/2021 Bupropion 10/01/2006 Chest pain [...] knee 2 mL IJ ONCE 10/13/2023 10/13/2023 Active documented as of this encounter (statuses [...] mRNA, LNP-s, No Pre serve, 2-Dose Series (Transcriptic) 01/05/2021,12/15/2020 COVID-19, mRNA, LNP-s, PF, B ooster, 100mcg/0.5mg (Moderna) 08/15/2021 Covid-19, Mrna, Lnp-s, Pf, B ivalent, 30 Mcg, IM, 12 yrs and above (Transcriptic) 05/31/2022 Seasonal Influenza, PF, 6 M & [...] - 10/13/2023 8:00 AM EST Meagan Chapman [id number] Meagan Chapmna is a 58 year old female who presents for consultation to [facility] for left knee injury/pain. Consult requested [...] longer has a job where she stands [employer]. She is hoping today if indicated that [...] Age of Onset Heart Disorder Grandmother (Maternal) MA at young age No Known Problems Grandfather [...] level: Not on file Occupational History Occupation: [employer] Employer: [id number] Tobacco Use Smoking status: Former Current packs/day: [...] mg 2.5 mg Nebulizer Once PRN Rommel Barvo DO 2.5 mg at 09/04/23 1248 Physical [...] Duke DO Primary Care Sports Medicine Orthopaedics [facility] [address] [facility] [place] [address] Procedure note (knee injection), left : Time [...] Pain Center, [facility] [address] [address] Stacey Hemphill PA-C [address] [address] 11/27/2023 9:00 AM EDT Office Visit Cardiology, [facility] [address] [address] Ewa Conteh CRNP [address] [address] 11/27/2023 1:40 PM EDT Office Visit Family Practice [facility] [address] [address] Faiza Bennett, [place] [address] [place] [address] 12/31/2023 10:45 AM EDT Imaging Radiology [address] [place] [address] 06/01/2024 1:00 PM EDT Office Visit Family Practice [facility] [address] [place] [address] Rommel Bravo, [address] [place] [address] Pending Results Name Type Priority Associated Diagnoses [...] 05/29/2021 LUNG CANCER SCREENING - USE SMARTSET 56619 Completed 12/27/2022, 12/13/2021 Influenza Vaccine (FLU shot) Completed , 05/29/2022, 05/09/2021, Additional history exists GARDASIL-HPV IMMUNIZATION SERIES Aged Out No longer eligible based on patient's age to complete this topic MENINGOCOCCAL (MENACTRA/MENVEO) Aged Out No longer eligible based on patient's age to complete this topic documented as of this encounter Medical Devices Implanted Type Area Adult Basic Education Instructor Device Identifier Shelf Expiration Date Model / Serial / Lot Dbx 10cc [id number] - [id number] - [id number] Implanted:Qty : 1 on 05/04/2018 by Minh Shannon MD [place] [facility] [place] - Human N/A: Spine Lumbar MUSCULOSKELETAL TRANSPLANT FND 11/27/2019 [id number] / [id number] / Chip Cancellous 30cc [id number] - [id number] - [id number] Implanted:Qty : 1 on 05/04/2018 by Minh Shannon MD [place] [facility] [place] - Human N/A: Spine Lumbar MUSCULOSKELETAL TRANSPLANT FND 03/16/2021 [id number] / [id number] / Vitoss Bimodal Foam Pack 5c - [id number] Implanted:Qty : 1 on 05/04/2018 by Minh Shannon MD [place] [facility] [place]A: Spine Lumbar MONTSERRAT : SPINE 01/05/2019 [id number] / / [id number] 6.5 X 50 Mitchell Screw Implanted:Qty : 2 on 05/04/2018 by Minh Shannon MD [place] [facility] [place]A: Spine Lumbar MONTSERRAT 05/05/2018 [id number] / / Description:in set 6.5 X 45 Mitchell Screw Implanted:Qty : 2 on 05/04/2018 by Minh Shannon MD [place] [facility] [place]A: Spine Lumbar MONTSERRAT 05/05/2018 [id number] / / Description:in set Screw Delon Fariba 3 Ti Set - [id number] Implanted:Qty : 4 on 05/04/2018 by Minh Shannon MD [place] [facility] [place]A: Spine Lumbar MONTSERRAT : SPINE 05/05/2018 [id number] / / Description:in set Dennis Fariba 3 Ti 6x40mm - [id number] Implanted:Qty : 1 on 05/04/2018 by Minh Shannon MD [place] [facility] [place]A: Spine Lumbar MONTSERRAT : SPINE 05/05/2018 [id number] / / Description:in set Dennis Fariba 3 Ti 6x35mm - [id number] Implanted:Qty : 1 on 05/04/2018 by Minh Shannon MD [place] [facility] [place]A: Spine Lumbar MONTSERRAT : SPINE 05/05/2018 [id number] / / Description:in set documented as of this encounter Visit Diagnoses Diagnosis Chronic pain of left knee- Primary Pain in joint, lower leg Primary osteoarthritis of left knee Primary localized osteoarthrosis, lower leg documented in this encounter Advance Directives Documents on File Type Date Recorded Patient Key Account Director Expl anation Power of Artificial Log Machine Operator 10/28/2015 POWER OF A TTORNEY Latest Code Status on File Code Status Date Activated Date Inactivated Comments Full Code 05/04/2018 5:46 AM 05/07/2018 4:17 PM This order reflects the patients wishes and were consensually agreed upon. Care Teams Lithographic Stripper Relationship Specialty Start Date End Date Rommel Bravo DO [address] [address] PCP - General Family Medicine 11/13/20 documented as of this encounter
--- OUTSIDE RECORDS SUMMARY | 2023-11-11 01:03 | External Medical Summary | Summary of Care ---
Author Name Unknown Organization [facility] Address [address] [place] [address] Phone [phone] Care Team Providers Care Oncology Rn Name Role Phone Rommel Bravo DO Primary Care Provider Reason for Visit * Reason Comments Follow Up Left knee pain * Evaluate & Treat - Unlimited Visits (Within 10 days (routine)) - Pending Review Specialty Diagnoses / Procedures Referred By Mack cox Referred To Contact Orthopaedic Surgery / Orthopedics Diagnoses Knee pain, left Rommel Bravo DO [address] [place] [address] Referral ID Status Reason Start Date Expiration Date Visits Requested Visits Authorized [id number] Pending Review Specialty Services Required 09/15/[phone] Encounter Details Date Type Department Care Team (Latest Contact Info) Description 10/13/2023 8:00 AM EST Office Visit Orthopaedics [facility] [address] [place] [address] Maurice Duke DO [address] [place] [address] Chronic pain of left knee*; Primary osteoarthritis of left knee Allergies Active Allergy Reactions Criticality Noted Date Comments Betaine High 05/29/2021 cocamidoproplyl Betaine Blue Dyes (Parenteral) High 05/29/2021 Disperse Blue 106 Glutathione High 05/29/2021 Neomycin Anaphylaxis High 05/29/2021 Fluoxetine Edema face/lips/tongue High 01/01/2022 Tea Tree Oil Rash Low 05/29/2021 Trypsin-[place] Oil-[place] Balsam High 05/29/2021 Bupropion 10/01/2006 Chest pain [...] mRNA, LNP-s, No Pre serve, 2-Dose Series (Cyber-Rain) 01/05/2021,12/15/2020 COVID-19, mRNA, LNP-s, PF, B ooster, 100mcg/0.5mg (Moderna) 08/15/2021 Covid-19, Mrna, Lnp-s, Pf, B ivalent, 30 Mcg, IM, 12 yrs and above (Cyber-Rain) 05/31/2022 Seasonal Influenza, PF, 6 M & [...] - 10/13/2023 8:00 AM EST Meagan Chapman [id number] Meagan Chapman is a 58 year old female who presents for consultation to [facility] for left knee injury/pain. Consult requested by [...] longer has a job where she stands [employer]. She is hoping today if indicated that [...] Age of Onset Heart Disorder Grandmother (Maternal) [place] at young age No Known Problems Grandfather [...] level: Not on file Occupational History Occupation: [employer] Employer: [employer] Tobacco Use Smoking status: Former Current packs/day: [...] Duke DO Primary Care Sports Medicine Orthopaedics [facility] [address] [facility] [place] [address] Procedure note (knee injection), left : Time [...] AM EDT Telemedicine Inter[facility], [facility] [address] [place] [address] Stacey Hemphill PA-C [address] [place] [address] 11/27/2023 9:00 AM EDT Office Visit Cardiology, [facility] [address] [address] [address] Ewa Conteh CRNP [address] [place] [address] 11/27/2023 1:40 PM EDT Office Visit Family Practice [facility] [address] [place] [address] Faiza Bennett, ELBA [address] [place] [address] 12/31/2023 10:45 AM EDT Imaging Radiology [address] [place] [address] 06/01/2024 1:00 PM EDT Office Visit Family Practice [facility] [address] [place] [address] Rommel Bravo, [address] [place] [address] Pending Results Name Type Priority Associated Diagnoses [...] 05/29/2021 LUNG CANCER SCREENING - USE SMARTSET 76184 Completed 12/27/2022, 12/13/2021 Influenza Vaccine (FLU shot) Completed , 05/29/2022, 05/09/2021, Additional history exists GARDASIL-HPV IMMUNIZATION SERIES Aged Out No longer eligible based on patient's age to complete this topic MENINGOCOCCAL (MENACTRA/MENVEO) Aged Out No longer eligible based on patient's age to complete this topic documented as of this encounter Medical Devices Implanted Type Area Staff Nuclear Medicine Technologist Device Identifier Shelf Expiration Date Model / Serial / Lot Dbx 10cc [id number] - [id number] - [id number] Implanted:Qty : 1 on 05/04/2018 [place] Minh [place] [facility] [place] - Human N/A: Spine Lumbar MUSCULOSKELETAL TRANSPLANT FND 11/27/2019 [id number] / [id number] / Chip Cancellous 30cc [id number] - [id number] - [id number] Implanted:Qty : 1 on 05/04/2018 by Minh Shannon MD [place] [facility] [place] - Human N/A: Spine Lumbar MUSCULOSKELETAL TRANSPLANT FND 03/16/2021 [id number] / [id number] / Vitoss Bimodal Foam Pack 5c - [id number] Implanted:Qty : 1 on 05/04/2018 by Minh Shannon MD [place] [facility] [place]/A: Spine Lumbar MONTSERRAT : SPINE 01/05/2019 [id number] / / [id number] 6.5 X 50 Mitchell Screw Implanted:Qty : 2 on 05/04/2018 by Minh Shannon [place] [facility] [place]A: Spine Lumbar MONTSERRAT 05/05/2018 [id number] / / Description:in set 6.5 X 45 Mitchell Screw Implanted:Qty : 2 on 05/04/2018 by Minh Shannon MD [place] [facility] [place]/A: Spine Lumbar MONTSERRAT 05/05/2018 [id number] / / Description:in set Screw Delon Fariba 3 Ti Set - [id number] Implanted:Qty : 4 on 05/04/2018 by Minh Shannon MD [place] [facility] [place]A: Spine Lumbar MONTSERRAT : SPINE 05/05/2018 [id number] / / Description:in set Dennis Fariba 3 Ti 6x40mm - [id number] Implanted:Qty : 1 on 05/04/2018 by Minh Shannon MD [place] [facility] [place]A: Spine Lumbar MONTSERRAT : SPINE 05/05/2018 [id number] / / Description:in set Dennis Fariba 3 Ti 6x35mm - [id number] Implanted:Qty : 1 on 05/04/2018 by Minh Shannon MD [place] [facility] [place]A: Spine Lumbar MONTSERRAT : SPINE 05/05/2018 [id number] / / Description:in set documented as of [...] Documents on File Type Date Recorded Patient Pneumatic Tool Repairer Expl anation Power of Barrel Marker 10/28/2015 POWER OF A TTORNEY Latest Code Status on File Code Status Date Activated Date Inactivated Comments Full Code 05/04/2018 5:46 AM 05/07/2018 4:17 PM This order reflects the patients wishes and were consensually agreed upon. Care Teams Oncology Rn Relationship Specialty Start Date End Date Rommel Bravo DO [address] [place] [address] PCP - General Family Medicine 11/13/20 documented as of this encounter
--- OUTSIDE RECORDS SUMMARY | 2023-11-11 01:03 | External Medical Summary ---
Author Name Unknown Address Unknown Organization [id number]:[facility] [address] [place] [address] Laboratory Report Ordering Provider Test Date Status ZOILA CHOUDHARY 10/30/2023 14:39:26 Final Observation Date Value Abnormality Reference (Units ) Status BUN 10/30/2023 14:39:26 12 6-20 (mg/dL) Final Creatinine 10/30/2023 14:39:26 0.8 0.5-1.0 (mg/dL) Final Glomerular filtration rate/1.73 sq M.predicted [Volume Rate/Area] in Serum, Plasma or Blood by Creatinine-based formula (CKD-EPI) 10/30/2023 14:39:26 82 >=60 (mL/min) Final eGFR is calculated based on the CKD-EPI 2020 equation Sodium 10/30/2023 14:39:26 133 Below low normal 135 -146 (mmol/L) Final Potassium 10/30/2023 14:39:26 4.3 3.5-5.1 (m mol/L) Final Cl 10/30/2023 14:39:26 94 Below low normal 98- 107 (mmol/L) Final CO2 10/30/2023 14:39:26 26 22-32 (mmo l/L) Final Anion gap 10/30/2023 14:39:26 13 7-15 (mmol /L) Final Glucose 10/30/2023 14:39:26 109 70-120 (mg /dL) Final Albumin 10/30/2023 14:39:26 4.8 3.8-5.0 (g /dL) Final AST (Aspartate aminotransferase) 10/30/2023 14:39:26 53 Above high normal 10-35 (U/L) Final Alk Phos 10/30/2023 14:39:26 128 35-130 (U/ L) Final Bilirubin, Total 10/30/2023 14:39:26 0.5 <=1 .2 (mg/dL) Final Calcium 10/30/2023 14:39:26 10.0 8.4-10.2 ( mg/dL) Final Protein 10/30/2023 14:39:26 7.5 6.0-8.3 (g /dL) Final ALT (Alanine aminotransferase) 10/30/2023 14:39:26 91 Above high normal 10-35 (U/L) Final Performing Location [facility] [place] [address] [facility] [address]
--- OUTSIDE RECORDS SUMMARY | 2023-11-11 01:03 | External Medical Summary ---
Author Name Unknown Address Unknown Organization [id number]:[facility] [place] [address] [place] [address] Laboratory Report Ordering Provider Test Date Status ZOILA CHOUDHARY 10/30/2023 14:39:26 Final Observation Date Value Abnormality Reference (Units ) Status TSH 10/30/2023 14:39:26 3.04 0.27-4.20 (uIU/mL) Final Performing Location [facility] - [address] [place] [address]
--- OUTSIDE RECORDS SUMMARY | 2023-11-11 01:03 | External Medical Summary ---
Author Name Unknown Address Unknown Organization [id number]:[facility] [place] - [address] [place] [id number] Laboratory Report Ordering Provider Test Date Status ZOILA CHOUDHARY 10/30/2023 15:05:54 Final Observation Date Value Abnormality Reference (Units) Status Bacteria identified in Specimen by Culture 10/30/2023 15:05:54 No significant growth Final Test: Culture, Urine, Quanti tative
Specimen Source: Urine, Clean Catch
Specimen Type: Urine
Specimen Date: 10/30/2023 3:05 PM
Result Date: 10/31/2023 4:57 PM
Result Status: Final result
Resulting Lab: [facility]
[address]
[place] [facility]

CULTURE

No significant growth

null Performing Location [facility] [place] - [address] [facility] [address]
--- OUTSIDE RECORDS SUMMARY | 2023-11-11 01:03 | External Medical Summary ---
Author Name Unknown Address Unknown Organization K01:[facility] [place] [address] [facility] [address] Laboratory Report Ordering Provider Test Date Status ZOILA CHOUDHARY 10/30/2023 14:39:26 Final Observation Date Value Abnormality Reference (Units ) Status HbA1C 10/30/2023 14:39:26 6.0 Above high normal 4. 0-5.6 (%) Final The use of HbA1c to monitor glycemic status is based on normal hemoglobin and HbA composition. This test should not be used in patients with abnormal hemoglobin that affects the half life of the red blood cell or the in vivo glycation rates. Glucose, estimated average 10/30/2023 14:39:26 126 Above high normal <126 (mg/dL) Eliseo mccormack Performing Location [facility] [place] - [address] [facility] [address]
--- OUTSIDE RECORDS SUMMARY | 2023-11-11 01:04 | External Medical Summary | Summary of Care ---
Author Name Unknown Organization [facility] Address [address] [place] [address] Phone [phone] Care Team Providers Care General Accounting Manager Name Role Phone Rommel Bravo Primary Care Provider Encounter Details Date Type Department Care Team ([facility] st Contact Info) Description 09/15/2023 Patient Reported Data Patient Survey Ortho [facility] Allergies Active Allergy Reactions Criticality Noted Date Comments Betaine High 05/29/2021 cocamidoproplyl Betaine Blue Dyes (Parenteral) High 05/29/2021 Disperse Blue 106 Glutathione High 05/29/2021 Neomycin Anaphylaxis High 05/29/2021 Fluoxetine Edema face/lips/tongue High 01/01/2022 Tea Tree Oil Rash Low 05/29/2021 Trypsin-[place] Oil-[place] Balsam High 05/29/2021 Bupropion 10/01/2006 Chest pain and cyanosis documented as of this encounter (statuses as of 09/15/2023) Medications Medication Sig Dispensed Refills Start Date [...] as of this encounter (statuses as of 09/15/2023) Active Problems Problem Noted Date Diagnosed Date Moderate episode of recurrent major depressive d isorder 2023 Prediabetes 01/23/2021 Overview: Per Prediabetes protocol Pap smear for cervical cancer screening 12/16/19 21 Sacroiliitis 11/27/2020 Lumbar radiculopathy 05/05/2018 DDD (degenerative disc disease), lumbar 05/05/20 18 Esophageal reflux 07/03/2009 Insomnia 10/01/2006 Overview: ICD-10 update of inactive term documented as of this encounter (statuses as of 09/15/2023) Resolved Problems Problem Noted Date Diagnosed Date Resolved Date Tobacco use disorder 04/29/2008 009 ADJ DISORDER W/DEPRES MOOD 10/08/2006 0 11/27/2021 Overview: Was on wellbutrin (not effective), paxil (chest hurts) Zoloft worked. See scanned records from 10/01/2006 documented as of this encounter (statuses as of 09/15/2023) Immunizations Name Administration Dates Next Due COVID-19 [...] Date Smoking Tobacco: Former Cigarettes 1 23 Q uit: 03/11/2009 Smokeless Tobacco: Never Comments:nicotene gum Alcohol [...] Upcoming Encounters Date Type Department Care Team (Latest Contact Info) Description 10/03/2023 9:40 AM EST Hospital Encounter [facility], Operating Room [facility] [address] [place] [phone] Sundar Grubbs, [address] [place] [phone] 10/03/2023 9:40 AM EST - 10/03/2023 10:05 AM EST Surgery OR [facility], Operating Room [facility] [address] [place] [phone] Sundar Grubbs, [address] [place] [address] INJECTION SACROILIAC JOINT 10/13/2023 8:00 AM EST Office Visit Orthopaedics [facility] [address] [place] [address] Maurice Duke, DO [address] [place] [address] 11/27/2023 9:00 AM EDT Office Visit Cardiology, [facility] [address] [place] [address] Ewa Conteh CRNP [address] [place] [address] 11/27/2023 1:40 PM EDT Office Visit Family Practice [facility] [address] [place] [address] Faiza Bennett CRNP [address] [place] [address] 06/01/2024 1:00 PM EDT Office Visit [facility] [address] [place] [address] Rommel Bravo DO [address] [place] [address] Scheduled Procedures Name Priority Associated Diagnoses Date/Ti me INJECTION SACROILIAC JOINT Inflammation of sacroiliac joint (HCC) 10/03/2023 9:40 AM EST Health Maintenance Due Date Last Done Comments Hepatitis B (1 of 3 - 3-dose series) 1965 Pneumococcal Vaccine: Pediatrics (0 to 5 Years) and At-Risk Patients (6 to 64 Years) (1 - PCV) 1971 HPV/Co-Test 1995 Colonoscopy 2010 Fecal Occult Blood [...] 05/29/2021 LUNG CANCER SCREENING - USE SMARTSET 10056 Completed 12/27/2022, 12/13/2021 Influenza Vaccine (FLU shot) Completed , 05/29/2022, 05/09/2021, Additional history exists GARDASIL-HPV IMMUNIZATION SERIES Aged Out No longer eligible based on patient's age to complete this topic MENINGOCOCCAL (MENACTRA/MENVEO) Aged Out No longer eligible based on patient's age to complete this topic documented as of this encounter Medical Devices Implanted Type Area It Risk Analyst Device Identifier Shelf Expiration Date Model / Serial / Lot Chip Cancellous 30cc [id number] - [id number] - [id number] Implanted:Qty : 1 on 05/04/2018 [place]h [place] [facility] [place] Human N/A: Spine Lumbar MUSCULOSKELETAL TRANSPLANT FND 03/16/2021 [id number] / [id number] / Dennis Fariba 3 Ti 6x35mm - [id number] Implanted:Qty : 1 on 05/04/2018 [place] Minh [place] [facility] [place]A: Spine Lumbar MONTSERRAT : SPINE 05/05/2018 [id number] / / Description:in set documented as of this encounter Advance Directives Documents on File Type Date Recorded Patient Washery Boss Expl anation Power of Syrup Mixer Assistant 10/28/2015 POWER OF A TTORNEY Latest Code Status on File Code Status Date Activated Date Inactivated Comments Full Code 05/04/2018 5:46 AM 05/07/2018 4:17 PM This order reflects the patients wishes and were consensually agreed upon. Care Teams General Accounting Manager Relationship Specialty Start Date End Date Rommel Bravo DO [address] [place] [address] PCP - General Family Medicine 11/13/20 documented as of this encounter
--- OUTSIDE RECORDS SUMMARY | 2023-11-11 01:04 | External Medical Summary | Summary of Care ---
Author Name Unknown Organization [facility] Address [address] [place] [address] Phone [phone] Care Team Providers Care Rug Setter Axminster Name Role Phone Rommel Bravo Primary Care Provider Encounter Details Date Type Department Care Team ([facility] st Contact Info) Description 09/15/2023 Patient Reported Data Patient Survey Ortho [facility]BERD Allergies Active Allergy Reactions Criticality Noted Date Comments Betaine High 05/29/2021 cocamidoproplyl Betaine Blue Dyes (Parenteral) High 05/29/2021 Disperse Blue 106 Glutathione High 05/29/2021 Neomycin Anaphylaxis High 05/29/2021 Fluoxetine Edema face/lips/tongue High 01/01/2022 Tea Tree Oil Rash Low 05/29/2021 Trypsin-[place] Oil-[place] Balsam High 05/29/2021 Bupropion 10/01/2006 Chest pain [...] Operating Room [facility] [address] [place] [phone] Sundar Grubbs, [address] [place] [phone] 10/03/2023 9:40 AM EST - 10/03/2023 10:05 AM EST Surgery OR [facility], Operating Room [facility] [address] [place] [phone] Sundar Grubbs, [address] [place] [phone] INJECTION SACROILIAC JOINT 10/13/2023 8:00 AM EST Office Visit Orthopaedics [facility] [address] [place] [address] Maurice uDke, DO [address] [place] [address] 11/27/2023 9:00 AM EDT Office Visit Cardiology, [facility] [address] [place] [address] Ewa Conteh CRNP [address] [place] [address] 11/27/2023 1:40 PM EDT Office Visit Family Practice [facility] [address] [place] [address] Faiza Bennett CRNP [address] [place] [address] 06/01/2024 1:00 PM EDT Office Visit [facility] [address] [place] [address] Rommel Bravo DO [address] [place] [address] Scheduled Procedures Name Priority Associated Diagnoses Date/Ti [...] 05/29/2021 LUNG CANCER SCREENING - USE SMARTSET 78900 Completed 12/27/2022, 12/13/2021 Influenza Vaccine (FLU shot) Completed , 05/29/2022, 05/09/2021, Additional history exists GARDASIL-HPV IMMUNIZATION SERIES Aged Out No longer eligible based on patient's age to complete this topic MENINGOCOCCAL (MENACTRA/MENVEO) Aged Out No longer eligible based on patient's age to complete this topic documented as of this encounter Medical Devices Implanted Type Area Saw Man Device Identifier Shelf Expiration Date Model / Serial / Lot Chip Cancellous 30cc [id number] - [id number] - [id number] Implanted:Qty : 1 on 05/04/2018 by Minh Shannon MD [place] [facility] [place] - Human N/A: Spine Lumbar MUSCULOSKELETAL TRANSPLANT FND 03/16/2021 [id number] / [id number] / Dennis Fariba 3 Ti 6x35mm - [id number] Implanted:Qty : 1 on 05/04/2018 by Minh Shannon MD [place] [facility] [place]/A: Spine Lumbar MONTSERRAT : SPINE 05/05/2018 [id number] / / Description:in set documented as of this encounter Advance Directives Documents on File Type Date Recorded Patient Vaccine Specialist Expl anation Power of Risk Management Director 10/28/2015 POWER OF A TTORNEY Latest Code Status on File Code Status Date Activated Date Inactivated Comments Full Code 05/04/2018 5:46 AM 05/07/2018 4:17 PM This order reflects the patients wishes and were consensually agreed upon. Care Teams Rug Setter [place]minster Relationship Specialty Start Date End Date Rommel Bravo DO [address] [place] [address] PCP - General Family Medicine 11/13/20 documented as of this encounter
--- OUTSIDE RECORDS SUMMARY | 2023-11-11 01:04 | External Medical Summary | Summary of Care ---
Author Name Unknown Organization [facility] Address [address] [place] [address] Phone [phone] Care Team Providers Care Director University Name Role Phone Rommel Bravo DO Primary Care Provider Reason for Visit * Auth/Cert Specialty Diagnoses / Procedures Referred By Contac t Referred To Contact Diagnoses Inflammation of sacroiliac joint (HCC) Inflammation of sacroiliac joint (HCC) [M46.1] Procedures SACROILIAC JOINT INJECT W/GUIDANCE INJECTION SACROILIAC JOINT Referral ID Status Reason Start Date Expiration Date Visits Re quested Visits Authorized [id number] Encounter Details Date Type Department Care Team (Latest Contact Info) Description 10/03/2023 8:56 AM EST - 10/03/2023 10:01 AM EST Hospital Encounter [facility] [address] [place] [id number] Sundar Grubbs DO [address] [place] [id number] Discharge Disposition: Home - Self Care Allergies Active Allergy Reactions Criticality Noted Date Comments Betaine High 05/29/2021 cocamidoproplyl Betaine Blue Dyes (Parenteral) High 05/29/2021 Disperse Blue 106 Glutathione High 05/29/2021 Neomycin Anaphylaxis High 05/29/2021 Fluoxetine Edema face/lips/tongue High 01/01/2022 Tea Tree Oil Rash Low 05/29/2021 Trypsin-Ary Oil-Nita Balsam High 05/29/2021 Bupropion 10/01/2006 Chest pain and cyanosis documented as of this encounter (statuses as of 10/03/2023) Medications Medication Sig Dispensed Refills Start Date [...] the morning. 90 Tablet 5 2023 Active documented as of this encounter (statuses as of 10/03/2023) Active Problems Problem Noted Date Diagnosed Date Moderate episode of recurrent major depressive d isorder 2023 Prediabetes 01/23/2021 Overview: Per Prediabetes protocol Pap smear for cervical cancer screening 12/16/19 21 Sacroiliitis 11/27/2020 Lumbar radiculopathy 05/05/2018 DDD (degenerative disc disease), lumbar 05/05/20 18 Esophageal reflux 07/03/2009 Insomnia 10/01/2006 Overview: ICD-10 update of inactive term documented as of this encounter (statuses as of 10/03/2023) Resolved Problems Problem Noted Date Diagnosed Date Resolved Date Tobacco use disorder 04/29/2008 009 ADJ DISORDER W/DEPRES MOOD 10/08/2006 0 11/27/2021 Overview: Was on wellbutrin (not effective), paxil (chest hurts) Neymarroyce worked. See scanned records from 10/01/2006 documented as of this encounter (statuses as of 10/03/2023) Immunizations Name Administration Dates Next Due COVID-19 [...] Sign Reading Time Taken Comments Blood Pressure 166/97 10/03/2023 9:59 AM EST Pulse 82 10/03/2023 9:59 AM EST Temperature 36.2 C (97.1 F) 10/03/2023 9:23 AM ES T Respiratory Rate 16 10/03/2023 9:59 AM EST Oxygen Saturation 97% 10/03/2023 9:59 AM EST Inhaled Oxygen Concentration - - Weight - - Height - - Body Mass Index - - documented in this encounter Functional Status Functional [...] No 05/04/2018 documented as of this encounter Discharge Instructions * Discharge Instr - AVS* Sundar Grubbs DO - 10/03/2023 9:56 AM EST [facility] [address] [place], [place] [address] Discharge Date: 10/03/2023 [facility] at [phone] during business hours. For after-hours emergencies call 911. Your attending physician at the time of your discharge was: Sundar Grubbs DO [address] [place] [phone] The information below provides you with the instructions and the list of medications you need to betaking following discharge from the hospital. If you have any questions, please ask before leaving.Please carry this letter with you when you see your doctor in the clinic. Diet: Resume your normal diet If you are diabetic, follow your blood sugars closely for next 2-3 days as they are likely to be elevated. If you are having difficulty controlling your blood sugars call your family doctor or the physician that treats your diabetes. Activity: Do not engage in strenuous activity today Resume your normal activities tomorrow Do not soak in water for 24 hours. No swimming, hot tub or bath but showering is allowed. Do not use heat on the injection site for 24 hours. If uncomfortable ice may be helpful. Some injections may make your arms or legs weak for a few hours. Be extremely careful when walking or changing positions that you do not fall. Have someone assist you for the next 6 hours. If weakness or numbness becomes progressive CALL IMMEDIATELY or GO TO THE NEAREST EMERGENCY ROOM Keep a diary of your pain until seen in the office to help us determine how effective the injectionwas Do not restart physical therapy or chiropractic manipulation until 48 hours after your injection Call : If weakness or numbness suddenly becomes worse or become progressive If the injection site becomes red, swollen, warm to the touch, begins to bleed or drain fluid, or is excessively painful. If you have any questions Medications: Resume all the medications you were taking prior to your injection. Resume your anticoagulants tomorrow unless otherwise instructed by your family physician, line runner or the anticoagulation clinic. Additional Instructions: None Driving: You may resume driving in 12-24 hours if no weakness is noted . Date you may return to work or school: N/A Follow Up: Follow-up with Dr. Grubbs or Stacey Hemphill PA-C in 6-8 weeks via telehealth or in- person appointment per your preference. documented in this encounter Progress Notes * Sundar Grubbs DO - 10/03/2023 9:56 AM EST [facility] [address] [facility] [address] [place] [phone] OUTPATIENT SURGERY DISCHARGE SUMMARY NOTE Name: Meagan Chapman Location: [facility]OR Date: 10/03/2023 Time: 9:56 AM Surgery Date: 10/03/2023 Procedure: Procedure(s): INJECTION SACROILIAC JOINT No laterality found for procedure #1 Surgeon: Surgeon(s): Sundar Grubbs DO Discharge Diagnosis: right chronic SIJ pain After examination of this patient, I have determined she is ready for discharge to home when the patient meets criteria. Discharge instructions were given to the patient. Sundar Grubbs DO [facility] [address] [place] [address] documented in this encounter H&P Notes * Sundar Grubbs DO - 10/03/2023 9:35 AM EST Interventional Pain H&P Subjective: History of Present Illness: Meagan Chapman is a 58 year old year-old female with a past medical history significant for chronicright SIJ pain who is presenting for right SIJ corticosteroid injection to improve her pain and function. her pain is essentially unchanged since our last office visit with her. ASA 3 AW nml Review of Systems: A focused 12-pt ROS were of reviewed with the patient including difficulty with sleep, snoring, aspiration history, dysphagia, stomach pain, nausea and vomiting, severe headaches, confusion, open skin lesions or wounds, chest pain, shortness of breath, excessive thirst, somnolence, dysuria, incomplete bladder emptying, easy bruising, recent clotting problems or bleeding, depression or rushed thoughts unless noted previously. Review of patient's allergies indicates: Allergen Reactions Betaine cocamidoproplyl Betaine Blue Dyes (Parenteral) Disperse Blue 106 Glutathione Methyl Disulfide [Glutathione] Neomycin Sulfate [Neomycin] Anaphylaxis Prozac [Fluoxetine] Edema face/lips/tongue Trypsin-Ary Oil-[place] Balsam Wellbutrin [Bupropion] Chest pain and cyanosis Tea Tree Oil Rash Medications, Past Medical History, Past Surgical History reviewed and documented in Epic. See detailed report if needed. Pertinent Labs/Test Results: INR ( ) Date Value 05/06/2018 0.94 No results found for: "CREATININE" Hemoglobin A1C (%) Date Value 06/29/2022 5.8 (H) No results found for: "AMPHETAMINE", "BARBITURATES", "BENZODIAZEPINES", "BUPRENORPHINE", "METHADONE", "OPIATES", "OXYCODONE", "PHENCYCLIDINE", "CANNABINOIDS", "TOX SCREEN", "URINE", "TOX SCREEN-SERUM", "TOX SCREEN, URINE" Imaging: I personally reviewed the imaging and my findings were . MAMMOGRAM SCREENING WESLEY BILATERAL Result MAMMOGRAM SCREENING WESLEY BILATERAL History Screening mammogram for breast cancer The patient has no documented relevant family history. Films Compared 01/02/2022 MAMMOGRAM DIAGNOSTIC WESLEY RIGHT, 12/25/2021 MAMMOGRAM SCREENING WESLEY BILATERAL, 12/15/2020 MAMMOGRAM SCREENING WESLEY BILATERAL, 06/01/2018 MAMMOGRAM SCREENING WESLEY BILATERAL, 08/17/2013 MAMMOGRAM, DIAGNOSTIC, UNILAT, and 02/24/2013 MAMMOGRAM, DIAGNOSTIC, UNILAT Findings The breasts are heterogeneously dense, which may obscure small masses. There is no evidence of suspicious masses, calcifications, or other abnormal findings. Impression Bilateral No mammographic evidence of malignancy. BI-RADS Category: 1 - Negative. Recommendation Screening mammogram in 1 year is recommended for both breasts. Digital breast tomosynthesis was performed. This digital mammogram has been analyzed with the computer aided detection system. This notice contains the results of your recent mammogram, including information about breast density. If your mammogram shows that your breast tissue is dense, you should know that dense breast tissue is a common finding and is not abnormal. Statistics show many women could have dense or highly dense breasts. Dense breast tissue can make it harder to find cancer on a mammogram and may be associated with an increased risk of cancer. This information about the result of your mammogram is given to you to raise your awareness and to inform your conversations with your physician. Together, you can decide which screening options are right for you, based on your mammogram results, individual risk factors or physical examination. A report of your results was sent to your physician. Your mammographic breast density on today's study is described above. There are four categories of breast density on mammography. Fatty breasts and those with scattered fibroglandular tissue are not considered dense. Heterogeneously dense or extremely dense tissue is considered "dense". Please understand that assessment of breast density may vary from year to year. This examination was performed at [facility], [address] [place] [id number]. Objective Physical Exam: Vital Signs: BP 163/99 | Pulse 88 | Temp 36.2 C (97.1 F) (Tympanic) | Resp 16 | LMP 12/25/2012 | SpO2 95% There is no height or weight on file to calculate BMI. General: No apparent distress. Eyes: pupils equal and round, sclera white, pupils midsize. ENT: mucous membranes moist Resp: Non-labored breathing CV: Extremities warm and well-perfused. Psych: Oriented; affect warm, insight good. Skin: No rashes or lesions appreciated on exposed skin Neuromuscular Exam: Facet loading neg, SLR neg, TTT over right SIJ Assessment: Meagan is a 58 year old year-old female with: Right chronic SIJ pain Osteoarthritis of the right SIJ Plan: The patient is undergoing right SIJ corticosteroid injection today to alleviate her pain and improve her function. The risks, benefits and alternatives to the procedure were reviewed at length and the patient was provided the opportunity to ask questions which were answered to their voiced understanding. Following this comprehensive discussion, the patient opted to proceed. The patient was consented to the procedure following this comprehensive conversation. Sundar Grubbs DO [facility], Operating Room [facility] [address] documented in this encounter Nursing Notes * Marielos Albert RN - 10/03/2023 10:00 AM EST Patient tolerated pain injection well. Ready for discharge to home. * Monica Flroes RN - 10/03/2023 9:55 AM EST Band aid applied to area. Patient transferred to PACU 11 via wheelchair * Monica Flores RN - 10/03/2023 9:52 AM EST Patient tolerating pain management injection well. documented in this encounter OR Notes * OR Surgeon - Sundar Grubbs DO - 10/03/2023 9:55 AM EST SI JOINT INJECTION DATE: 10/03/2023 PHYSICIAN: Sundar Grubbs DO PREOPERATIVE DIAGNOSIS: Right-sided Sacroiliac Joint Pain Right-sided degenerative sacroiliitis. POSTOPERATIVE DIAGNOSIS: Right-sided Sacroiliac Joint Pain Right-sided degenerative sacroiliitis. PROCEDURE PERFORMED: Sacroiliac joint injection with a corticosteroid and a local anesthetic on the right side. Fluoroscopy for precise needle placement. There was no clinical trial assistant, EBL or drains placed during this procedure. ANESTHESIA: Local infiltration with 1% lidocaine. MONITORS: Automatic blood pressure cuff, pulse oximetry readily available INDICATIONS: We had the pleasure of seeing Meagan Chapman at the [facility] today. Meagan Chapman ([id number]) is a 58 year old year-old female with a history of right-sided sacroiliac joint pain and right-sided degenerative sacroiliitis. The patient is here today for a sacroiliac joint injection. MEDICATIONS: Current Facility-Administered Medications for the 10/03/23 encounter (Hospital Encounter) Medication Albuterol Sulfate (Proventil) (2.5 MG/3ML) 0.083% inhalation solution 2.5 mg Outpatient Medications Marked as Taking for the 10/03/23 encounter (Hospital Encounter) Medication Sig Citalopram Hydrobromide 40 MG Oral Tablet (CeleXA) Take 1 Tablet by mouth in the morning. Cyclobenzaprine HCl 10 MG Oral Tablet (Flexeril) TAKE 1 TABLET BY MOUTH TWICE DAILY NEEDED FOR MUSCLE SPASMS Rosuvastatin Calcium 10 MG Oral Tablet (Crestor) TAKE ONE TABLET BY MOUTH IN THE MORNING Naproxen 500 MG Oral Tablet (Naprosyn) TAKE ONE TABLET BY MOUTH TWICE DAILY NEEDED FOR PAIN, TAKE WITH FOOD Ibuprofen 200 MG Oral Capsule Take 2 Capsules by mouth every 6 hours as needed. ALLERGIES: Review of patient's allergies indicates: Allergen Reactions Betaine cocamidoproplyl Betaine Blue Dyes (Parenteral) Disperse Blue 106 Glutathione Methyl Disulfide [Glutathione] Neomycin Sulfate [Neomycin] Anaphylaxis Prozac [Fluoxetine] Edema face/lips/tongue Trypsin-Ary Oil-[place] Balsam Wellbutrin [Bupropion] Chest pain and cyanosis Tea Tree Oil Rash REVIEW OF SYSTEMS: Negative for fever, chills, chest pain, SOB, bleeding abnormalities, nausea, vomiting, diarrhea, worsening edema, or new rashes. FOCUSED PHYSICAL EXAMINATION: The patient is awake, alert and oriented, and is in no acute distress. Vital signs are stable. The patient is afebrile. The rest of the PE is essentially unchanged from the patient's recent visit to our office. I explained the procedure to the patient including the risks, benefits and alternatives to the procedure. The risks discussed with the patient included but were not limited to: bleeding, infection, and damage to surrounding nerves, tissues, and organs, paralysis, increased pain, allergic reaction, blood pressure instability, seizures, heart block, headaches, increase in blood sugar, worsening of glaucoma, blindness, manic episodes, mood instability, and . Alternatives to the procedure werealso explained and include: do nothing, surgery, medications, and physical therapy. The patient verbalized understanding and was willing to proceed. PROCEDURE IN DETAIL: An informed consent was obtained. The patient was taken to the procedure room where the patient was positively identified by the staff and the attending physician. The patient was positioned prone on the bed. The patient's vital signs were monitored as above and remained stablethroughout the procedure. A fluoroscopic view of the right SI joint was obtained. The skin was prepped and draped in the standard sterile fashion. A surgical pause (time-out) was performed and was agreed upon by the members of the team. The skin and subcutaneous tissues were infiltrated with 1% lidocaine using a 25-gauge 1.5- inch needle. A 22-gauge, 3.5-inch spinal needle was advanced into the inferior portion of the right SI joint. The position of the needle was verified in AP and lateral views and by injecting Omniplaque dye, 180 mg/ml, which showed excellent intraarticular spread. After negative aspiration for the CSF or blood, 40 mg of triamcinolone mixed with 1mL of 1% lidocaine was injected. The needle was withdrawn. The patient tolerated the procedure well. The patient was transferred in stable condition to the recovery room. COMPLICATIONS: None. DISPOSITION: 1. Return to clinic in 1-2 months for follow-up evaluation, sooner as needed. 2. Resume activity as tolerated. 3. Patient can drive after 12-24 hours if no weakness noted. Sundar Grubbs DO [facility] [address] [place] [address] documented in this encounter Plan of Treatment Upcoming Encounters Date Type Department Care Team (Late st Contact Info) Description 10/13/2023 8:00 AM EST Office Visit Orthopaedics [facility] [address] [place] [address] Maurice Duke DO [address] [place] [address] 11/24/2023 9:30 AM EDT Office Visit Interventional Pain Center, [facility] [address] [place] [address] Stacey Hemphill PA-C [address] [place] [address] 11/27/2023 9:00 AM EDT Office Visit Cardiology, [facility] [address] [place] [address] Ewa Conteh CRNP [address] [place] [address] 11/27/2023 1:40 PM EDT Office Visit Family Practice [facility] [address] [place] [address] Faiza Bennett CRNP [address] [place] [address] 06/01/2024 1:00 PM EDT Office Visit Family [facility] [address] [place] [address] Rommel Bravo, [address] [place] [address] Scheduled Procedures Name Priority Associated Diagnoses Date/Ti me INJECTION SACROILIAC JOINT Inflammation of sacroiliac joint (HCC) 10/03/2023 9:48 AM EST Health Maintenance Due Date Last [...] 05/29/2021 LUNG CANCER SCREENING - USE SMARTSET 80298 Completed 12/27/2022, 12/13/2021 Influenza Vaccine (FLU shot) Completed , 05/29/2022, 05/09/2021, Additional history exists GARDASIL-HPV IMMUNIZATION SERIES Aged Out No longer eligible based on patient's age to complete this topic MENINGOCOCCAL (MENACTRA/MENVEO) Aged Out No longer eligible based on patient's age to complete this topic documented as of this encounter Medical Devices Implanted Type Area Mechanical Planner Device Identifier Shelf Expiration Date Model / Serial / Lot Dbx 10cc [id number] - [id number] - [id number] Implanted:Qty : 1 on 05/04/2018 by Minh Shannon MD [place] [facility] [place] Tissue - Human N/A: Spine Lumbar MUSCULOSKELETAL TRANSPLANT FND 11/27/2019 [id number] / [id number] / Chip Cancellous 30cc [id number] - [id number] - [id number] Implanted:Qty : 1 on 05/04/2018 by Minh Shannon MD [place] [facility] [place] Tissue - Human N/A: Spine Lumbar MUSCULOSKELETAL TRANSPLANT FND 03/16/2021 [id number] / [id number] / Vitoss Bimodal Foam Pack 5cc - [id number] Implanted:Qty : 1 on 05/04/2018 by Minh Shannon MD [place] [facility] [place] N/A: Spine Lumbar MONTSERRAT : SPINE 01/05/2019 [id number] / / [id number] 6.5 X 50 Mitchell Screw Implanted:Qty : 2 on 05/04/2018 by Minh Shannon MD [place] [facility] [place] N/A: Spine Lumbar MONTSERRAT 05/05/2018 [id number] / / Description:in set 6.5 X 45 Mitchell Screw Implanted:Qty : 2 on 05/04/2018 by Minh Shannon MD [place] [facility] [place] N/A: Spine Lumbar MONTSERRAT 05/05/2018 [id number] / / Description:in set Screw Delon Fariba 3 Ti Set - [id number] Implanted:Qty : 4 on 05/04/2018 by Minh Shannon MD [place] [facility] [place] N/A: Spine Lumbar MONTSERRAT : SPINE 05/05/2018 [id number] / / Description:in set Dennis Fariba 3 Ti 6x40mm - [id number] Implanted:Qty : 1 on 05/04/2018 by Minh Shannon MD [place] [facility] [place] N/A: Spine Lumbar MONTSERRAT : SPINE 05/05/2018 [id number] / / Description:in set Dennis Fariba 3 Ti 6x35mm - [id number] Implanted:Qty : 1 on 05/04/2018 by Minh Shannon MD at [place] [facility] [place] N/A: Spine Lumbar MONTSERRAT : SPINE 05/05/2018 [id number] / / Description:in set documented as of this encounter Procedures Procedure Name Priority Date/Time Associated Diagnosis Comments FLUORO INTERVENTIONAL PAIN PROCEDURE NONBILLABLE Routine 10/03/2023 9:59 AM EST documented in this encounter Results * FLUORO INTERVENTIONAL PAIN PROCEDURE NONBILLABLE (10/03/2023 9:59 AM EST) Narrative Scheduling, Silent - 10/03/2023 10:00 AM EST This procedure will not be read by a Radiologist. Please see operative note. Sundar PRAJAPATI FLUOROSCOPY documented in this encounter Administered Medications Inactive Administered Medications - up to 3 most recent administrations Medication Order MAR Action Action Date Dose Rate Site Iohexol (Omnipaque 180) inj 1 mL 1 mL, Injection, ONCE, On Fri10/03/23 at 0945, For 1 dose Given 10/03/2023 9:52 AM EST 0.5 mL lidocaine 1 % inj 30 mg 30 mg (3 mL), Subcutaneous, ONCE, On Fri10/03/23 at 0945, For 1 dose Given 10/03/2023 9:51 AM EST 5 mL Other -Specify Triamcinolone Acetonide (Kenalog) 40 MG/ML inj 60 mg 60 mg, Intra-Articular, ONCE, On Fri10/03/23 at 0945, For 1 dose Given 10/03/2023 9:53 AM EST 40 mg documented in this encounter Active and Recently Administered Medications Times are shown in EST. Scheduled Medication Order 10/01/2023 10/02/2023 10/03/2023 Iohexol (Omnipaque 180) inj 1 mL (COMPLETED) 1 mL, Injection, ONCE, On Fri10/03/23 at 0945, For 1 dose 0952 (Given - Provid er: Monica Flores RN) lidocaine 1 % inj 30 mg (COMPLETED) 30 mg (3 mL), Subcutaneous, ONCE, On Fri10/03/23 at 0945, For 1 dose 0951 (Given - Provid er: Monica Flores RN - Comment: right si) Triamcinolone Acetonide (Kenalog) 40 MG/ML inj 60 mg (COMPLETED) 60 mg, Intra-Articular, ONCE, On Fri10/03/23 at 0945, For 1 dose 0953 (Given - Provid er: Mnoica Flores RN) documented in this encounter Advance Directives Documents on File Type Date Recorded Patient Fruit Bar Maker Expl anation Power of Payroll Manager 10/28/2015 POWER OF A TTORNEY Latest Code Status on File Code Status Date Activated Date Inactivated Comments Full Code 05/04/2018 5:46 AM 05/07/2018 4:17 PM This order reflects the patients wishes and were consensually agreed upon. Care Teams Director University Relationship Specialty Start Date End Date Rommel Bravo DO [address] [place] [address] PCP - General Family Medicine 11/13/20 documented as of this encounter
--- OUTSIDE RECORDS SUMMARY | 2023-11-11 01:04 | External Medical Summary | Summary of Care ---
Author Name Unknown Organization [facility] Address [address] [place] [address] Phone [phone] Care Team Providers Care Sharepoint Engineer Name Role Phone Rommel Bravo Primary Care Provider Encounter Details Date Type Department Care Team ([facility] st Contact Info) Description 09/15/2023 Patient Reported Data Patient Survey Ortho OBERD Allergies Active Allergy Reactions Criticality Noted Date Comments Betaine High 05/29/2021 cocamidoproplyl Betaine Blue Dyes (Parenteral) High 05/29/2021 Disperse Blue 106 Glutathione High 05/29/2021 Neomycin Anaphylaxis High 05/29/2021 Fluoxetine Edema face/lips/tongue High 01/01/2022 Tea Tree Oil Rash Low 05/29/2021 Trypsin-[place] Oil-[place] Balsam High 05/29/2021 Bupropion 10/01/2006 Chest pain [...] Operating Room [facility] [address] [place] [address] Sundar Grubbs, [address] [place] [phone] 10/03/2023 9:40 AM EST - 10/03/2023 10:05 AM EST Surgery OR [facility], Operating Room [facility] [address] [place] [phone] Sundar Grubbs, [address] [place] [address] INJECTION SACROILIAC JOINT 10/13/2023 8:00 AM EST Office Visit Orthopaedics [facility] [address] [place] [address] Maurice Duke, DO [address] [place] [address] 11/27/2023 9:00 AM EDT Office Visit Cardiology, [facility] [address] [place] [address] Ewa Conteh CRNP [address] [place] [address] 11/27/2023 1:40 PM EDT Office Visit Family Practice [facility] [address] [place] [address] Faiza Bennett CRNP [address] [place] [address] 06/01/2024 1:00 PM EDT Office Visit [facility] [address] [place] [address] Rommel Bravo DO [address] [place] [address] Scheduled Procedures Name Priority Associated Diagnoses Date/Ti [...] 05/29/2021 LUNG CANCER SCREENING - USE SMARTSET 73123 Completed 12/27/2022, 12/13/2021 Influenza Vaccine (FLU shot) Completed , 05/29/2022, 05/09/2021, Additional history exists GARDASIL-HPV IMMUNIZATION SERIES Aged Out No longer eligible based on patient's age to complete this topic MENINGOCOCCAL (MENACTRA/MENVEO) Aged Out No longer eligible based on patient's age to complete this topic documented as of this encounter Medical Devices Implanted Type Area Traffic Superintendent Device Identifier Shelf Expiration Date Model / Serial / Lot Chip Cancellous 30cc [id number] - [id number] - [id number] Implanted:Qty : 1 on 05/04/2018 by Minh Shannon MD [place] [facility] [place] - Human N/A: Spine Lumbar MUSCULOSKELETAL TRANSPLANT FND 03/16/2021 [id number] / [id number] / Dennis Fariba 3 Ti 6x35mm - [id number] Implanted:Qty : 1 on 05/04/2018 by Minh Shannon MD at [place] [facility] [place] N/A: Spine Lumbar MONTSERRAT : SPINE 05/05/2018 [id number] / / Description:in set documented as of this encounter Advance Directives Documents on File Type Date Recorded Patient Electron Beam Welder Expl anation Power of Skid Wrapper 10/28/2015 POWER OF A TTORNEY Latest Code Status on File Code Status Date Activated Date Inactivated Comments Full Code 05/04/2018 5:46 AM 05/07/2018 4:17 PM This order reflects the patients wishes and were consensually agreed upon. Care Teams Sharepoint Engineer Relationship Specialty Start Date End Date Rommel Bravo DO [address] [place] [address] PCP - General Family Medicine 11/13/20 documented as of this encounter
--- OUTSIDE RECORDS SUMMARY | 2023-11-11 01:04 | External Medical Summary | Summary of Care ---
Author Name Unknown Organization [facility] Address [address] [place] [address] Phone [phone] Care Team Providers Care Frozen Foods Manager Name Role Phone Rommel Bravo Primary Care Provider Encounter Details Date Type Department Care Team ([facility] st Contact Info) Description 09/15/2023 Patient Reported Data Patient Survey Ortho OBERD Allergies Active Allergy Reactions Criticality Noted Date Comments Betaine High 05/29/2021 cocamidoproplyl Betaine Blue Dyes (Parenteral) High 05/29/2021 Disperse Blue 106 Glutathione High 05/29/2021 Neomycin Anaphylaxis High 05/29/2021 Fluoxetine Edema face/lips/tongue High 01/01/2022 Tea Tree Oil Rash Low 05/29/2021 Trypsin-[place] Oil-[place] Balsam High 05/29/2021 Bupropion 10/01/2006 Chest pain [...] Operating Room [facility] [address] [place] [address] Sundar Grubbs, [address] [place] [phone] 10/03/2023 9:40 AM EST - 10/03/2023 10:05 AM EST Surgery OR [facility], Operating Room [facility] [address] [place] [phone] Sundar Grubbs, [address] [place] [address] INJECTION SACROILIAC JOINT 10/13/2023 8:00 AM EST Office Visit Orthopaedics [facility] [address] [place] [address] Maurice Duke, DO [address] [place] [address] 11/27/2023 9:00 AM EDT Office Visit Cardiology, [facility] [address] [place] [address] Ewa Conteh CRNP [address] [place] [address] 11/27/2023 1:40 PM EDT Office Visit Family Practice [facility] [address] [place] [address] Faiza Bennett CRNP [address] [place] [address] 06/01/2024 1:00 PM EDT Office Visit [facility] [address] [place] [address] Rommel Bravo DO [address] [place] [address] Scheduled Procedures Name Priority Associated Diagnoses Date/Ti [...] 05/29/2021 LUNG CANCER SCREENING - USE SMARTSET [id number] Completed 12/27/2022, 12/13/2021 Influenza Vaccine (FLU shot) Completed , 05/29/2022, 05/09/2021, Additional history exists GARDASIL-HPV IMMUNIZATION SERIES Aged Out No longer eligible based on patient's age to complete this topic MENINGOCOCCAL (MENACTRA/MENVEO) Aged Out No longer eligible based on patient's age to complete this topic documented as of this encounter Medical Devices Implanted Type Area Bunghole Borer Device Identifier Shelf Expiration Date Model / Serial / Lot Chip Cancellous 30cc [id number] - [id number] - [id number] Implanted:Qty : 1 on 05/04/2018 by Minh Shannon MD at OR [facility] [place] Tissue - Human N/A: Spine Lumbar MUSCULOSKELETAL TRANSPLANT FND 03/16/2021 [id number] / [id number] / Dennis Fariba 3 Ti 6x35mm - [id number] Implanted:Qty : 1 on 05/04/2018 by Minh Shannon MD at OR [facility] [place] N/A: Spine Lumbar MONTSERRAT : SPINE 05/05/2018 [id number] / / Description:in set documented as of this encounter Advance Directives Documents on File Type Date Recorded Patient Special Effects Specialist Expl anation Power of Umbrella Mender 10/28/2015 POWER OF A TTORNEY Latest Code Status on File Code Status Date Activated Date Inactivated Comments Full Code 05/04/2018 5:46 AM 05/07/2018 4:17 PM This order reflects the patients wishes and were consensually agreed upon. Care Teams Frozen Foods Manager Relationship Specialty Start Date End Date Rommel Bravo DO [address] [place] [address] PCP - General Family Medicine 11/13/20 documented as of this encounter
--- OUTSIDE RECORDS SUMMARY | 2023-11-11 01:04 | External Medical Summary | Summary of Care ---
Author Name Unknown Organization [facility] Address [address] [place] [address] Phone [phone] Care Team Providers Care Facility Security Officer Name Role Phone Rommel Bravo Primary Care Provider Encounter Details Date Type Department Care Team ([facility] st Contact Info) Description 09/15/2023 Patient Reported Data Patient Survey Ortho OBERD Allergies Active Allergy Reactions Criticality Noted Date Comments Betaine High 05/29/2021 cocamidoproplyl Betaine Blue Dyes (Parenteral) High 05/29/2021 Disperse Blue 106 Glutathione High 05/29/2021 Neomycin Anaphylaxis High 05/29/2021 Fluoxetine Edema face/lips/tongue High 01/01/2022 Tea Tree Oil Rash Low 05/29/2021 Trypsin-[place] Oil-[place] Balsam High 05/29/2021 Bupropion 10/01/2006 Chest pain [...] Operating Room [facility] [address] [place] [phone] Sundar Grubbs, [address] [place] [phone] 10/03/2023 9:40 AM EST - 10/03/2023 10:05 AM EST Surgery OR [facility], Operating Room [facility] [address] [place] [phone] Sundar Grubbs, [address] [place] [address] INJECTION SACROILIAC JOINT 10/13/2023 8:00 AM EST Office Visit Orthopaedics [facility] [address] [place] [address] Maurice Duke, DO [address] [place] [address] 11/27/2023 9:00 AM EDT Office Visit Cardiology, [facility] [address] [place] [address] Ewa Conteh CRNP [address] [place] [address] 11/27/2023 1:40 PM EDT Office Visit Family Practice [facility] [address] [place] [address] Faiza Bennett CRNP [address] [place] [address] 06/01/2024 1:00 PM EDT Office Visit [facility] [address] [place] [address] Rommel Bravo DO [address] [place] [address] Scheduled Procedures Name Priority Associated Diagnoses Date/Ti [...] 05/29/2021 LUNG CANCER SCREENING - USE SMARTSET [id number] Completed 12/27/2022, 12/13/2021 Influenza Vaccine (FLU shot) Completed , 05/29/2022, 05/09/2021, Additional history exists GARDASIL-HPV IMMUNIZATION SERIES Aged Out No longer eligible based on patient's age to complete this topic MENINGOCOCCAL (MENACTRA/MENVEO) Aged Out No longer eligible based on patient's age to complete this topic documented as of this encounter Medical Devices Implanted Type Area Compressed Gases Tester Device Identifier Shelf Expiration Date Model / Serial / Lot Chip Cancellous 30cc [id number] - [id number] - [id number] Implanted:Qty : 1 on 05/04/2018 by Minh Shannon MD [place] [facility] [place] - Human N/A: Spine Lumbar MUSCULOSKELETAL TRANSPLANT FND 03/16/2021 [id number] / [id number] / Dennis Fariba 3 Ti 6x35mm - [id number] Implanted:Qty : 1 on 05/04/2018 by Minh Shannon MD [place] [facility] [place] N/A: Spine Lumbar MONTSERRAT : SPINE 05/05/2018 [id number] / / Description:in set documented as of this encounter Advance Directives Documents on File Type Date Recorded Patient It Training Specialist Expl anation Power of Sales Marketing Manager 10/28/2015 POWER OF A TTORNEY Latest Code Status on File Code Status Date Activated Date Inactivated Comments Full Code 05/04/2018 5:46 AM 05/07/2018 4:17 PM This order reflects the patients wishes and were consensually agreed upon. Care Teams Facility Security Officer Relationship Specialty Start Date End Date Rommel Bravo DO [address] [place] [address] PCP - General Family Medicine 11/13/20 documented as of this encounter
--- OUTSIDE RECORDS SUMMARY | 2023-11-11 01:04 | External Medical Summary | Summary of Care ---
Author Name Unknown Organization [facility] Address [address] [place] [address] Phone [phone] Care Team Providers Care Soil Surveyor Name Role Phone Rommel Bravo Primary Care Provider Encounter Details Date Type Department Care Team ([facility] st Contact Info) Description 09/15/2023 Patient Reported Data Patient Survey Ortho OBERD Allergies Active Allergy Reactions Criticality Noted Date Comments Betaine High 05/29/2021 cocamidoproplyl Betaine Blue Dyes (Parenteral) High 05/29/2021 Disperse Blue 106 Glutathione High 05/29/2021 Neomycin Anaphylaxis High 05/29/2021 Fluoxetine Edema face/lips/tongue High 01/01/2022 Tea Tree Oil Rash Low 05/29/2021 Trypsin-[place] Oil-[place] Balsam High 05/29/2021 Bupropion 10/01/2006 Chest pain [...] Operating Room [facility] [address] [place] [address] Sundar Grubbs, [address] [place] [address] 10/03/2023 9:40 AM EST - 10/03/2023 10:05 AM EST Surgery OR [facility], Operating Room [facility] [address] [place] [phone] Sundar Grubbs, [address] [place] [address] INJECTION SACROILIAC JOINT 10/13/2023 8:00 AM EST Office Visit Orthopaedics [facility] [address] [place] [address] Maurice Duke, DO [address] [place] [address] 11/27/2023 9:00 AM EDT Office Visit Cardiology, [facility] [address] [place] [address] Ewa Conteh CRNP [address] [place] [address] 11/27/2023 1:40 PM EDT Office Visit Family Practice [facility] [address] [place] [address] Faiza Bennett CRNP [address] [place] [address] 06/01/2024 1:00 PM EDT Office Visit [facility] [address] [place] [address] Rommel Bravo DO [address] [place] [address] Scheduled Procedures Name Priority Associated Diagnoses Date/Ti [...] 05/29/2021 LUNG CANCER SCREENING - USE SMARTSET [id number] Completed 12/27/2022, 12/13/2021 Influenza Vaccine (FLU shot) Completed , 05/29/2022, 05/09/2021, Additional history exists GARDASIL-HPV IMMUNIZATION SERIES Aged Out No longer eligible based on patient's age to complete this topic MENINGOCOCCAL (MENACTRA/MENVEO) Aged Out No longer eligible based on patient's age to complete this topic documented as of this encounter Medical Devices Implanted Type Area Hearings Reporter Device Identifier Shelf Expiration Date Model / Serial / Lot Chip Cancellous 30cc [id number] - [id number] - [id number] Implanted:Qty : 1 on 05/04/2018 by Minh Shannon MD at OR [facility] [place] Tissue - Human N/A: Spine Lumbar MUSCULOSKELETAL TRANSPLANT FND 03/16/2021 [id number] / [id number] / Dennis Fariba 3 Ti 6x35mm - [id number] Implanted:Qty : 1 on 05/04/2018 by Minh Shannon MD at OR [facility] [place] N/A: Spine Lumbar MONTSERRAT : SPINE 05/05/2018 [id number] / / Description:in set documented as of this encounter Advance Directives Documents on File Type Date Recorded Patient Tv Technician Expl anation Power of Upsetter Helper 10/28/2015 POWER OF A TTORNEY Latest Code Status on File Code Status Date Activated Date Inactivated Comments Full Code 05/04/2018 5:46 AM 05/07/2018 4:17 PM This order reflects the patients wishes and were consensually agreed upon. Care Teams Soil Surveyor Relationship Specialty Start Date End Date Rommel Bravo DO [address] [place] [address] PCP - General Family Medicine 11/13/20 documented as of this encounter
--- OUTSIDE RECORDS SUMMARY | 2023-11-11 01:05 | External Medical Summary | Summary of Care ---
Author Name Unknown Organization [facility] Address [address] [place] [address] Phone [phone] Care Team Providers Care Engineering Professor Name Role Phone Rommel Bravo DO Primary Care Provider Reason for Visit * Reason Onset Date Comments Appointment 07/11/2023 Encounter Details Date Type Department Care Team ([facility] st Contact Info) Description 07/11/2023 Telephone Interventional Pain Center, [facility] [address] [facility] [place] [address] CousinsDenizDO [address] [facility] [place] [address] Appointment Allergies Active Allergy Reactions Criticality Noted Date Comments Betaine High 05/29/2021 cocamidoproplyl Betaine Blue Dyes (Parenteral) High 05/29/2021 Disperse Blue 106 Glutathione High 05/29/2021 Neomycin Anaphylaxis High 05/29/2021 Fluoxetine Edema face/lips/tongue High 01/01/2022 Tea Tree Oil Rash Low 05/29/2021 Trypsin-[place] Oil-[place] Balsam High 05/29/2021 Bupropion 10/01/2006 Chest pain and cyanosis documented as of this encounter (statuses as of 07/11/2023) Medications Medication Sig Dispensed Refills Start Date End Date Status Citalopram Hydrobromide 40 MG Oral Tablet (CeleXA) TAKE 1 TABLET (40MG) BY MOUTH IN THE MORNING 90 Tablet 5 06/20/2022 09/14/2023 Active Ibuprofen 200 MG Oral Capsule Take 2 Capsules by mouth every 6 hours as needed. 0 Active Cyclobenzaprine HCl 10 MG Oral Tablet (Flexeril)Indication s:Right-sided low back pain with right-sided sciatica, unspecified chronicity TAKE 1 TABLET BY MOUTH TWICE DAILY NEEDED FOR MUSCLE SPASMS 30 Tablet 1 04/24/2023 04/23/2024 Active Naproxen 500 MG Oral Tablet (Naprosyn) TAKE ONE TABLET BY MOUTH TWICE DAILY NEEDED FOR PAIN, TAKE WITH FOOD 40 Tablet 1 04/23/2023 04/22/2024 Active Rosuvastatin Calcium 10 MG Oral Tablet (Crestor)Indications :Dyslipidemia, goal LDL below 130 TAKE ONE TABLET BY MOUTH IN THE MORNING 30 Tablet 11 05/18/2023 05/17/2024 Active documented as of this encounter (statuses as of 07/11/2023) Active Problems Problem Noted Date Diagnosed Date Prediabetes 01/23/2021 Overview: Per Prediabetes protocol Pap smear for cervical cancer screening 12/16/19 21 Sacroiliitis 11/27/2020 Lumbar radiculopathy 05/05/2018 DDD (degenerative disc disease), lumbar 05/05/20 18 Esophageal reflux 07/03/2009 Insomnia 10/01/2006 Overview: ICD-10 update of inactive term documented as of this encounter (statuses as of 07/11/2023) Resolved Problems Problem Noted Date Diagnosed Date Resolved Date Tobacco use disorder 04/29/2008 009 ADJ DISORDER W/DEPRES MOOD 10/08/2006 0 11/27/2021 Overview: Was on wellbutrin (not effective), paxil (chest hurts) Zoloft worked. See scanned records from 10/01/2006 documented as of this encounter (statuses as of 07/11/2023) Immunizations Name Administration Dates Next Due COVID-19 mRNA, LNP-s, No Pre serve, 2-Dose Series (Tripshare) 01/05/2021,12/15/2020 COVID-19, mRNA, LNP-s, PF, B ooster, 100mcg/0.5mg (Moderna) 08/15/2021 Covid-19, Mrna, Lnp-s, Pf, B ivalent, 30 Mcg, IM, 12 yrs and above (Pfizer) 05/31/2022 SEASONAL INFLUENZA, PF, 6 M & Above, IM , (FLULAVAL or FLUZONE) 05/29/2022,05/09/2021,04/28/2020,2018 Seasonal Influenza, Quadriva lent, No Preserve, IM 04/21/2018,05/28/2017,05/27/2016 Seasonal Influenza, Split, I IV3, With Preserve, [...] No 05/04/2018 documented as of this encounter Miscellaneous Notes * Telephone Encounter - Deniz Norris DO - 07/11/2023 8:35 AM EST 90% improved in pain level and improved function for 8 months. Order placed for fluoro guided rightSI joint injection with fluoro guidance. * Telephone Encounter - Deniz Norris DO - 07/11/2023 8:35 AM EST 90 * Telephone Encounter - Jacqueline Peters LPN - 07/11/2023 8:27 AM EST Patient reports 85-90% improvement after last SI injection, pain slowly started coming back a monthago, right side, difficulty sleeping. Would like another injection. documented in this encounter Plan of Treatment Upcoming Encounters Date Type Department Care Team (Late st Contact Info) Description 08/19/2023 10:30 AM EST Office Visit Cardiology, [facility] [address] [place] [address] Jacqueline Richard CRNP [address] [place] [address] 11/17/2023 8:00 AM EDT Office Visit Family Practice [facility] [address] [place] [address] Rommel Bravo DO [address] [place] [address] Scheduled Orders Name Type Priority Associated Diagnoses Orde r Schedule SACROILIAC JOINT INJECT W/GUIDANCE Procedures Routine Sacroiliitis (HCC) Expected: 08/11/2023, Expires: 08/11/2024 Health Maintenance Due Date Last Done Comments Hepatitis B (1 of 3 - 3-dose series) 1965 HPV/Co-Test 1995 Colonoscopy 2010 Fecal Occult Blood Test 2010 Sigmoidoscopy 2010 COVID-19 Vaccine ( season) 2023 05/31/2022, 08/15/2021, 01/05/2021, Additional history exists Influenza Vaccine (FLU shot) (#1) 2023 05/29/2022, 05/09/2021, 04/28/2020, Additional history exists HbA1c 06/29/2023 06/29/2022, 11/09, [...] 05/29/2021 LUNG CANCER SCREENING - USE SMARTSET 26101 Completed 12/27/2022, 12/13/2021 GARDASIL-HPV IMMUNIZATION SERIES Aged Out No longer eligible based on patient's age to complete this topic MENINGOCOCCAL (MENACTRA/MENVEO) Aged Out No longer eligible based on patient's age to complete this topic Pneumococcal Vaccine: Pediatrics (0 to 5 Years) and At-Risk Patients (6 to 64 Years) Aged Out No longer eligible based on patient's age to complete this topic documented as of this encounter Medical Devices Implanted Type Area Split Leather Department Supervisor Device Identifier Shelf Expiration Date Model / Serial / Lot Chip Cancellous 30cc [id number] - [id number] - [id number] Implanted:Qty : 1 on 05/04/2018 by Minh Shannon MD at OR [facility] [place] Tissue - Human N/A: Spine Lumbar MUSCULOSKELETAL TRANSPLANT FND 03/16/2021 [id number] / [id number] / Dennis Fariba 3 Ti 6x35mm - [id number] Implanted:Qty : 1 on 05/04/2018 by Minh Shannon MD at OR [facility] [place] N/A: Spine Lumbar MONTSERRAT : SPINE 05/05/2018 [id number] / / Description:in set documented as of this encounter Visit Diagnoses Diagnosis Sacroiliitis (HCC)- Primary Sacroiliitis, not elsewhere classified documented in this encounter Advance Directives Documents on File Type Date Recorded Patient Field Support Engineer Expl anation Power of Transmitter Engineer In Charge 10/28/2015 POWER OF A TTORNEY Latest Code Status on File Code Status Date Activated Date Inactivated Comments Full Code 05/04/2018 5:46 AM 05/07/2018 4:17 PM This order reflects the patients wishes and were consensually agreed upon. Care Teams Engineering Professor Relationship Specialty Start Date End Date Rommel Bravo DO [address] [place] [address] PCP - General Family Medicine 11/13/20 documented as of this encounter
--- OUTSIDE RECORDS SUMMARY | 2023-11-11 01:05 | External Medical Summary | Summary of Care ---
Author Name Unknown Organization [facility] Address [address] [place] [address] Phone [phone] Care Team Providers Care Nurse Head Name Role Phone Rommel Bravo DO Primary Care Provider Reason for Visit * Reason Comments Return Visit Pt here for return v isit, discuss CT from 12/27/22, pt has concerns. Encounter Details Date Type Department Care Team (Latest Contact Info) Description 2023 10:40 AM EST Office Visit Family Practice [facility] [address] [place] [address] Rommel Bravo DO [address] [place] [address] Prediabetes*; COPD, mild (HCC); Gastroesophageal reflux disease without esophagitis; DDD (degenerative disc disease), lumbar; Sacroiliitis (HCC); Lumbar radiculopathy Allergies Active Allergy Reactions Criticality Noted Date Comments Betaine High 05/29/2021 cocamidoproplyl Betaine Blue Dyes (Parenteral) High 05/29/2021 Disperse Blue 106 Glutathione High 05/29/2021 Neomycin Anaphylaxis High 05/29/2021 Fluoxetine Edema face/lips/tongue High 01/01/2022 Tea Tree Oil Rash Low 05/29/2021 Trypsin-[place] Oil-Nita Balsam High 05/29/2021 Bupropion 10/01/2006 Chest pain and cyanosis documented as of this encounter (statuses as of 2023) Medications Medication Sig Dispensed Refills Start Date End Date Status Ibuprofen 200 MG Oral Capsule Take 2 Capsules by mouth every 6 hours as needed. 0 Active Naproxen 500 MG Oral Tablet (Naprosyn) TAKE ONE TABLET BY MOUTH TWICE DAILY NEEDED FOR PAIN, TAKE WITH FOOD 40 Tablet 1 04/23/2023 04/22/2024 Active Rosuvastatin Calcium 10 MG Oral Tablet (Crestor)Indication s:Dyslipidemia, goal LDL below 130 TAKE ONE TABLET BY MOUTH IN THE MORNING 30 Tablet 11 05/18/2023 05/17/2024 Active Cyclobenzaprine HCl 10 MG Oral Tablet (Flexeril)Indicatio ns:Right-sided low back pain with right-sided sciatica, unspecified chronicity TAKE 1 TABLET BY MOUTH TWICE DAILY NEEDED FOR MUSCLE SPASMS 30 Tablet 1 08/14/2023 08/13/2024 Active Citalopram Hydrobromide 40 MG Oral Tablet (CeleXA)Indications :Lumbar radiculopathy Take 1 Tablet by mouth in the morning. 90 Tablet 5 2023 Active ProAir HFA 108 (90 Base) MCG/ACT Inhalation Aerosol SolutionIndications :COPD, mild (HCC) Inhale 2 Puffs by mouth in the morning and 2 Puffs at noon and 2 Puffs in the evening and 2 Puffs before bedtime. 25.5 g 3 2023 Active Citalopram Hydrobromide 40 MG Oral Tablet (CeleXA) TAKE 1 TABLET (40MG) BY MOUTH IN THE MORNING 90 Tablet 5 06/20/2022 2023 Discontinue d(Refill) Hospital, Clinic, or Other Facility Administered Medication Ordered Dose Route Frequency Start Date End Date Status Albuterol Sulfate (Proventil) (2.5 MG/3ML) 0.083% inhalation solution 2.5 mgIndications:COPD, mild (HCC) 2.5 mg NEBULIZER ONCE PRN 2023 08/27/2024 Active documented as of this encounter (statuses as of 2023) Active Problems Problem Noted Date Diagnosed Date Moderate episode of recurrent major depressive d isorder 2023 Prediabetes 01/23/2021 Overview: Per Prediabetes protocol Pap smear for cervical cancer screening 12/16/19 21 Sacroiliitis 11/27/2020 Lumbar radiculopathy 05/05/2018 DDD (degenerative disc disease), lumbar 05/05/20 18 Esophageal reflux 07/03/2009 Insomnia 10/01/2006 Overview: ICD-10 update of inactive term documented as of this encounter (statuses as of 2023) Resolved Problems Problem Noted Date Diagnosed Date Resolved Date Tobacco use disorder 04/29/2008 009 ADJ DISORDER W/DEPRES MOOD 10/08/2006 0 11/27/2021 Overview: Was on wellbutrin (not effective), paxil (chest hurts) Zoloft worked. See scanned records from 10/01/2006 documented as of this encounter (statuses as of 2023) Immunizations Name Administration Dates Next Due COVID-19 [...] Sign Reading Time Taken Comments Blood Pressure 134/80 2023 10:20 AM EST Pulse 102 2023 10:20 AM EST Temperature 36.6 C (97.9 F) 2023 10:[address] Respiratory Rate - - Oxygen Saturation 99% 2023 10:20 AM EST Inhaled Oxygen Concentration - - Weight 82.1 kg (181 lb) 2023 10:20 AM EST Height 159.4 cm (5' 2.75") 2023 10:[address] Body Mass Index 32.32 2023 10:20 AM EST documented in this encounter Functional [...] shopping? (15 years old or older) No 09/24/20 18 Cognitive Status Response Date of Assessm ent Because of a physical, menta l, or emotional condition, do you have serious difficulty concentrating, remembering, or making decisions? (5 years old or older) No 05/04/2018 documented as of this encounter Progress Notes * Rommel Bravo DO - 2023 10:43 AM EST Images from the original note were not included. 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 Gastroesophageal reflux disease without esophagitis stable DDD (degenerative disc disease), lumbar Ongoing, but improved, will be seeing Dr Grubbs Sacroiliitis (HCC) Lumbar radiculopathy - Citalopram Hydrobromide 40 MG Oral Tablet (CeleXA); Take 1 Tablet by mouth in the morning. History of Present Illness Meagan Chapman is a 58 year old female that presents for Return Visit (Pt here for return visit, discuss CT from 12/27/22, pt has concerns. ) Physical Exam Vitals: 08/28/23 1020 Temp: 36.6 C (97.9 F) Pulse: 102 SpO2: 99% BP: 144/80 BMI: 32.31 Wrap-Up Follow-up: Return in about 6 months (around 02/26/2024). | Check-out note: 3 months with Rosio Bennett 8 months with Time: Total time today was 26 minutes excluding any time spent in the performance of separately billed services. documented in this encounter Plan of Treatment Upcoming Encounters Date Type Department Care Team (Latest Contact Info) Description 09/04/2023 1:30 PM EST PulmDiagnostic Pulmonary Function Lab, [facility] [address] [facility] [place] [address] [place], [address] [place] [address] 10/03/2023 9:40 AM EST Hospital Encounter [facility], Operating Room [facility] [address] [place] [phone] Sundar Grubbs, DO [address] [place] [phone] 10/03/2023 9:40 AM EST - 10/03/2023 10:05 AM EST Surgery [facility], Operating Room [facility] [address] [place] [phone] Sundar Grubbs, DO [address] [place] [id number] INJECTION SACROILIAC JOINT 11/27/2023 9:00 AM EDT Office Visit Cardiology, [facility] [address] [place] [address] Ewa Conteh CRNP [address] [place] [address] 11/27/2023 1:40 PM EDT Office Visit [facility] [address] [place] [address] Faiza Bennett CRNP [address] [place] [address] 06/01/2024 1:00 PM EDT Office Visit [facility] [address] [place] [address] Rommel Bravo DO [address] [place] [address] Scheduled Orders Name Type Priority Associated Diagnoses Orde r Schedule SPIROMETRY B/A BRONCHODILATOR Procedures Routine COPD, mild (HCC) Expected: 2023, Expires: 09/28/2024 Scheduled Procedures Name Priority Associated Diagnoses Date/Ti [...] Test 2010 Sigmoidoscopy 2010 COVID-19 Vaccine ( - season) 2023 05/31/2022, 08/15/2021, 01/05/2021, Additional history [...] 05/29/2021 LUNG CANCER SCREENING - USE SMARTSET [id number] Completed 12/27/2022, 12/13/2021 Influenza Vaccine (FLU shot) Completed , 05/29/2022, 05/09/2021, Additional history exists GARDASIL-HPV IMMUNIZATION SERIES Aged Out No longer eligible based on patient's age to complete this topic MENINGOCOCCAL (MENACTRA/MENVEO) Aged Out No longer eligible based on patient's age to complete this topic documented as of this encounter Medical Devices Implanted Type Area Electrical Superintendent Device Identifier Shelf Expiration Date Model / Serial / Lot Chip Cancellous 30cc [id number] - [id number] - [id number] Implanted:Qty : 1 on 05/04/2018 by Minh Shannon MD at [place] [facility] [place] - Human N/A: Spine Lumbar MUSCULOSKELETAL TRANSPLANT FND 03/16/2021 [id number] / [id number] / Dennis Fariba 3 Ti 6x35mm - [id number] Implanted:Qty : 1 on 05/04/2018 by Minh Shannon MD at [place] [facility] [place] N/A: Spine Lumbar MONTSERRAT : SPINE 05/05/2018 [id number] / / Description:in set documented as of this encounter Visit Diagnoses Diagnosis Prediabetes- Primary Other abnormal glucose COPD, mild (HCC) Chronic airway obstruction, not elsewhere classified Gastroesophageal reflux disease without esophagitis Esophageal reflux DDD (degenerative disc disease), lumbar Degeneration of lumbar or lumbosacral intervertebral disc Sacroiliitis (HCC) Sacroiliitis, not elsewhere classified Lumbar radiculopathy Thoracic or lumbosacral neuritis or radiculitis, unspecified Inflammation of sacroiliac joint (HCC) Sacroiliitis, not elsewhere classified documented in this encounter Advance Directives Documents on File Type Date Recorded 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 Care Teams Nurse Head Relationship Specialty Start Date End Date Rommel Bravo DO [address] [place] [address] PCP - General Family Medicine 11/13/20 documented as of this encounter
--- OUTSIDE RECORDS SUMMARY | 2023-11-11 01:05 | External Medical Summary | Summary of Care ---
Author Name Unknown Organization [facility] Address [address] [place] [address] Phone [phone] Care Team Providers Care Pipe Fitter Marine Name Role Phone Rommel Bravo Primary Care Provider Reason for Visit * Reason Comments Pulmonary Function Test Spirogram with nathan obregon Encounter Details Date Type Department Care Team (Late st Contact Info) Description 09/04/2023 1:30 PM EST PulmDiagnostic Pulmonary Function Lab, [facility] [address] [place] [address] [place], [address] [facility] [place] [address] COPD, mild (HCC)* Allergies Active Allergy Reactions Criticality Noted Date Comments Betaine High 05/29/2021 cocamidoproplyl Betaine Blue Dyes (Parenteral) High 05/29/2021 Disperse Blue 106 Glutathione High 05/29/2021 Neomycin Anaphylaxis High 05/29/2021 Fluoxetine Edema face/lips/tongue High 01/01/2022 Tea Tree Oil Rash Low 05/29/2021 Trypsin-[place] Oil-[place] Balsam High 05/29/2021 Bupropion 10/01/2006 Chest pain and cyanosis documented as of this encounter (statuses as of 09/04/2023) Medications Medication Sig Dispensed Refills Start Date [...] as of this encounter (statuses as of 09/04/2023) Active Problems Problem Noted Date Diagnosed Date Moderate episode of recurrent major depressive d isorder 2023 Prediabetes 01/23/2021 Overview: Per Prediabetes protocol Pap smear for cervical cancer screening 12/16/19 21 Sacroiliitis 11/27/2020 Lumbar radiculopathy 05/05/2018 DDD (degenerative disc disease), lumbar 05/05/20 18 Esophageal reflux 07/03/2009 Insomnia 10/01/2006 Overview: ICD-10 update of inactive term documented as of this encounter (statuses as of 09/04/2023) Resolved Problems Problem Noted Date Diagnosed Date Resolved Date Tobacco use disorder 04/29/2008 009 ADJ DISORDER W/DEPRES MOOD 10/08/2006 0 11/27/2021 Overview: Was on wellbutrin (not effective), paxil (chest hurts) Zoloft worked. See scanned records from 10/01/2006 documented as of this encounter (statuses as of 09/04/2023) Immunizations Name Administration Dates Next Due COVID-19 [...] 23 Q uit: 03/11/2009 Smokeless Tobacco: Never Tobacco Cessation:Counseling Given: Not Answered Comments:nicotene gum Alcohol Use Standard Drinks/Week Comments [...] - Inhaled Oxygen Concentration - - Weight 82 kg (180 lb 12.4 oz) 09/04/2023 12:55 P M EST Height 158 cm (5' 2.21") 09/04/2023 12:55 PM EST Body Mass Index 32.85 09/04/2023 12:55 PM EST documented in this encounter Functional Status [...] No 05/04/2018 documented as of this encounter Nursing Notes * Cassius Verma, KOLBY - 09/04/2023 12:53 PM EST Meagan Chapman was identified by name, Date of : (1965), and . Vitals were obtained for testing. Body mass index is 32.85 kg/m. Pt has a 1 ppd for 23 years smoking history andquit 14 years ago. Pt used to work in [employer], [employer] room, and [employer] working. Spirometry performed before and after a slow volume nebulizer treatment of 0.5ml of albuterol in 3 ml of NSS. Administrations This Visit Albuterol Sulfate (Proventil) (2.5 MG/3ML) 0.083% inhalation solution 2.5 mg Admin Date 09/04/2023 Action Given Dose 2.5 mg Route Nebulizer Documented By Cassius Verma, KOLBY documented in this encounter Plan of Treatment Upcoming Encounters Date Type Department Care Team (Latest Contact Info) Description 10/03/2023 9:40 AM EST Hospital Encounter OR [facility], Operating Room [facility] [address] [place] [phone] Sundar Grubbs, [address] [place] [address] 10/03/2023 9:40 AM EST - 10/03/2023 10:05 AM EST Surgery OR [facility], Operating Room [facility] [address] [place] [phone] Sundar Grubbs, [address] [place] [address] INJECTION SACROILIAC JOINT 11/27/2023 9:00 AM EDT Office Visit Cardiology, [facility] [address] [place] [address] Ewa Conteh CRNP [address] [place] [address] 11/27/2023 1:40 PM EDT Office Visit Family Practice [facility] [address] [place] [address] Faiza Bennett CRNP [address] [place] [address] 06/01/2024 1:00 PM EDT Office Visit Family [facility] [address] [place] [address] Rommel Bravo, [address] [place] [address] Scheduled Procedures Name Priority Associated Diagnoses Date/Ti [...] 05/29/2021 LUNG CANCER SCREENING - USE SMARTSET [id number] Completed 12/27/2022, 12/13/2021 Influenza Vaccine (FLU shot) Completed , 05/29/2022, 05/09/2021, Additional history exists GARDASIL-HPV IMMUNIZATION SERIES Aged Out No longer eligible based on patient's age to complete this topic MENINGOCOCCAL (MENACTRA/MENVEO) Aged Out No longer eligible based on patient's age to complete this topic documented as of this encounter Medical Devices Implanted Type Area Tank Truck Loader Device Identifier Shelf Expiration Date Model / Serial / Lot Chip Cancellous 30cc [id number] - [id number] - [id number] Implanted:Qty : 1 on 05/04/2018 by Minh Shannon MD at OR [facility] [place] Tissue - Human N/A: Spine Lumbar MUSCULOSKELETAL TRANSPLANT FND 03/16/2021 [id number] / [id number] / Dennis Fariba 3 Ti 6x35mm - [id number] Implanted:Qty : 1 on 05/04/2018 by Minh Shannon MD at OR [facility] [place] N/A: Spine Lumbar MONTSERRAT : SPINE 05/05/2018 [id number] / / Description:in set documented as of this encounter Visit Diagnoses Diagnosis COPD, mild (HCC)- Primary Chronic airway obstruction, not elsewhere classified Inflammation of sacroiliac joint (HCC) Sacroiliitis, not elsewhere classified documented in this encounter Administered Medications Active Administered Medications - up to 3 most recent administrations Medication Order MAR Action Action Date Dose Rate Site Albuterol Sulfate (Proventil) (2.5 MG/3ML) 0.083% inhalation solution 2.5 mg 2.5 mg, Nebulizer, ONCE PRN Other, Testing, Starting on Sushila 08/28/23 at 1040, Until Fri08/27/24 at 1039, For 365 days, Only one type of albuterol product should be administered (Nebulizer or Inhaler). Please select and document on the appropriate albuterol product order. 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 Care Teams Pipe Fitter Marine Relationship Specialty Start Date End Date Rommel Bravo DO [address] [place] [address] PCP - General Family Medicine 11/13/20 documented as of this encounter
--- OUTSIDE RECORDS SUMMARY | 2023-11-11 01:05 | External Medical Summary | Summary of Care ---
Author Name Unknown Organization [facility] Address [address] [place] [address] Phone [phone] Care Team Providers Care Manager Data Warehouse Name Role Phone Rommel Bravo DO Primary Care Provider Reason for Visit * Reason Onset Date Comments Health Maintenance 07/09/2023 Encounter Details Date Type Department Care Team (Late st Contact Info) Description 07/09/2023 Telephone Family Practice [facility] [address] [place] [address] Rommel Bravo DO [address] [facility] [place] [phone] Health Maintenance Allergies Active Allergy Reactions Criticality Noted Date Comments Betaine High 05/29/2021 cocamidoproplyl Betaine Blue Dyes (Parenteral) High 05/29/2021 Disperse Blue 106 Glutathione High 05/29/2021 Neomycin Anaphylaxis High 05/29/2021 Fluoxetine Edema face/lips/tongue High 01/01/2022 Tea Tree Oil Rash Low 05/29/2021 Trypsin-[place] Oil-[place] Balsam High 05/29/2021 Bupropion 10/01/2006 Chest pain and cyanosis documented as of this encounter (statuses as of 07/09/2023) Medications Medication Sig Dispensed Refills Start Date [...] as of this encounter (statuses as of 07/09/2023) Active Problems Problem Noted Date Diagnosed Date Prediabetes 01/23/2021 Overview: Per Prediabetes protocol Pap smear for cervical cancer screening 12/16/19 21 Sacroiliitis 11/27/2020 Lumbar radiculopathy 05/05/2018 DDD (degenerative disc disease), lumbar 05/05/20 18 Esophageal reflux 07/03/2009 Insomnia 10/01/2006 Overview: ICD-10 update of inactive term documented as of this encounter (statuses as of 07/09/2023) Resolved Problems Problem Noted Date Diagnosed Date Resolved Date Tobacco use disorder 04/29/2008 009 ADJ DISORDER W/DEPRES MOOD 10/08/2006 0 11/27/2021 Overview: Was on wellbutrin (not effective), paxil (chest hurts) Zoloft worked. See scanned records from 10/01/2006 documented as of this encounter (statuses as of 07/09/2023) Immunizations Name Administration Dates Next Due COVID-19 mRNA, LNP-s, No Pre serve, 2-Dose Series ([employer]) 01/05/2021,12/15/2020 COVID-19, mRNA, LNP-s, PF, B ooster, [...] encounter Miscellaneous Notes * Telephone Encounter - Lou Alston LPN - 07/09/2023 1:25 PM EST Care Gaps Comprehensive Care Outreach Last Office/Telemedicine Visit: 11/27/2022 (in office), Visit date not found (telemedicine) Next Office Visit: 11/17/2023 Hemoglobin AIC Results: Lab Results Component Value Date/Time HEMOGLOBIN A1C - [facility] 5.8 (H) 06/29/2022 09:21 AM HEMOGLOBIN A1C - [facility] 6.0 (H) 11/27/2021 12:46 PM HEMOGLOBIN A1C - [facility] 5.6 05/29/2021 01:32 PM Reviewed Health Maintenance below: Health Maintenance Topic Date Due Hepatitis B (1 of 3 - 3-dose series) Never done Influenza Vaccine (FLU shot) (1) 04/11/2023 COVID-19 Vaccine ( season) 2023 HbA1c 06/29/2023 Depression Screening 11/28/2023 Lab already ordered Care Gap Outreach Action Taken: Outreach not indicated documented in this encounter Plan of Treatment Upcoming Encounters Date Type Department Care Team (Late st Contact Info) Description 08/19/2023 10:30 AM EST Office Visit Cardiology, [facility] [address] [place] [address] Jacqueline Richard CRNP [address] [place] [address] 11/17/2023 8:00 AM EDT Office Visit Family Practice [facility] [address] [place] [address] Rommel Bravo, [address] [place] [address] Health Maintenance Due Date Last Done Comments [...] 05/29/2021 LUNG CANCER SCREENING - USE SMARTSET 21415 Completed 12/27/2022, 12/13/2021 GARDASIL-HPV IMMUNIZATION SERIES Aged [...] this encounter Medical Devices Implanted Type Area Cooler Man Device Identifier Shelf Expiration Date Model / Serial / Lot Chip Cancellous 30cc [id number] - [id number] - [id number] Implanted:Qty : 1 on 05/04/2018 by Minh Shannon MD at OR [facility] [place] Tissue - Human N/A: Spine Lumbar MUSCULOSKELETAL TRANSPLANT FND 03/16/2021 [id number] / [id number] / Dennis Fariba 3 Ti 6x35mm - [id number] Implanted:Qty : 1 on 05/04/2018 by Minh Shannon MD at OR [facility] [place] N/A: Spine Lumbar MONTSERRAT : SPINE 05/05/2018 [id number] / / Description:in set documented as of this encounter Advance Directives Documents on File Type Date Recorded Patient Inspector Circuitry Negative Expl anation Power of Neonatal Surgeon 10/28/2015 POWER OF A TTORNEY Latest Code Status on File Code Status Date Activated Date Inactivated Comments Full Code 05/04/2018 5:46 AM 05/07/2018 4:17 PM This order reflects the patients wishes and were consensually agreed upon. Care Teams Manager Data Warehouse Relationship Specialty Start Date End Date Rommel Bravo DO [address] [place] [address] PCP - General Family Medicine 11/13/20 documented as of this encounter
--- OUTSIDE RECORDS SUMMARY | 2023-11-11 01:05 | External Medical Summary | Summary of Care ---
Author Name Unknown Organization [facility] Address [address] [place] [address] Phone [phone] Care Team Providers Care Studio Technician Name Role Phone Kenrick Bravo DO Primary Care Provider Reason for Visit * Reason Comments Medication Refill Encounter Details Date Type Department Care Team (Late st Contact Info) Description 08/13/2023 Refill Family Practice [facility] [address] [facility] [place] [address] Kenrick Bravo DO [address] [facility] [address] Right-sided low back pain with right-sided sciatica, unspecified chronicity Allergies Active Allergy Reactions Criticality Noted Date Comments Betaine High 05/29/2021 cocamidoproplyl Betaine Blue Dyes (Parenteral) High 05/29/2021 Disperse Blue 106 Glutathione High 05/29/2021 Neomycin Anaphylaxis High 05/29/2021 Fluoxetine Edema face/lips/tongue High 01/01/2022 Tea Tree Oil Rash Low 05/29/2021 Trypsin-[place] Oil-[place]line Balsam High 05/29/2021 Bupropion 10/01/2006 Chest pain and cyanosis documented as of this encounter (statuses as of 08/14/2023) Medications Medication Sig Dispensed Refills Start Date [...] Active Rosuvastatin Calcium 10 MG Oral Tablet (Crestor)Indicatio ns:Dyslipidemia, goal LDL below 130 TAKE ONE TABLET BY MOUTH IN THE MORNING 30 Tablet 11 05/18/2023 05/17/2024 Active Cyclobenzaprine HCl 10 MG Oral Tablet (Flexeril)Indicati ons:Right-sided low back pain with right-sided sciatica, unspecified chronicity TAKE 1 TABLET BY MOUTH TWICE DAILY NEEDED FOR MUSCLE SPASMS 30 Tablet 1 08/14/2023 08/13/2024 Active Cyclobenzaprine HCl 10 MG Oral Tablet (Flexeril)Indicati ons:Right-sided low back pain with right-sided sciatica, unspecified chronicity TAKE 1 TABLET BY MOUTH TWICE DAILY NEEDED FOR MUSCLE SPASMS 30 Tablet 1 04/24/2023 08/13/2023 Discontinued (Refill) documented as of this encounter (statuses as of 08/14/2023) Active Problems Problem Noted Date Diagnosed Date Prediabetes 01/23/2021 Overview: Per Prediabetes protocol Pap smear for cervical cancer screening 12/16/19 21 Sacroiliitis 11/27/2020 Lumbar radiculopathy 05/05/2018 DDD (degenerative disc disease), lumbar 05/05/20 18 Esophageal reflux 07/03/2009 Insomnia 10/01/2006 Overview: ICD-10 update of inactive term documented as of this encounter (statuses as of 08/14/2023) Resolved Problems Problem Noted Date Diagnosed Date Resolved Date Tobacco use disorder 04/29/2008 009 ADJ DISORDER W/DEPRES MOOD 10/08/2006 0 11/27/2021 Overview: Was on wellbutrin (not effective), paxil (chest hurts) Zoloft worked. See scanned records from 10/01/2006 documented as of this encounter (statuses as of 08/14/2023) Immunizations Name Administration Dates Next Due COVID-19 [...] encounter Miscellaneous Notes * Telephone Encounter - Kenrick Bravo DO - 08/14/2023 12:35 PM EST Signed Prescriptions: Disp Refills Cyclobenzaprine HCl 10 MG Oral Tablet (Fle*30 Tab*1 Sig: TAKE 1 TABLET BY MOUTH TWICE DAILY NEEDED FOR MUSCLE SPASMS Authorizing Provider: KENRICK BRAVO * Telephone Encounter - Mikey Galvez RPh - 08/14/2023 12:12 PM EST Refill pharmacists currently not authorized to approve refills for this class of medication per refill protocol. Please approve if appropriate. Thanks, Mikey aGlvez, PharmD Clinical Pharmacist [facility] [phone] 08/14/2023, 12:12 PM * Telephone Encounter - Mikey Galvez [facility] - 08/14/2023 12:12 PM EST Pending Prescriptions: Disp Refills Cyclobenzaprine HCl 10 MG Oral Tablet (Fle*30 Tab*1 Sig: TAKE 1 TABLET BY MOUTH TWICE DAILY NEEDED FOR MUSCLE SPASMS documented in this encounter Plan of Treatment Upcoming Encounters Date Type Department Care Team (Latest Contact Info) Description 08/19/2023 10:30 AM EST Office Visit Cardiology, [facility] [address] [place] [address] Jacqueline Richard CRNP [address] [place] [address] 2023 10:40 AM EST Office Visit Family Practice [facility] [address] [place] [address] Kenrick Bravo, DO [address] [place] [address] 10/03/2023 9:40 AM EST Hospital Encounter [facility], Operating Room [facility] [address] [place] [phone] Sundar Grubbs, DO [address] [place] [phone] 10/03/2023 9:40 AM EST - 10/03/2023 10:05 AM EST Surgery [facility], Operating Room [facility] [address] [place] [phone] Sundar Grubbs, DO [address] [place] [address] INJECTION SACROILIAC JOINT Scheduled Procedures Name Priority Associated Diagnoses Date/Ti [...] 05/29/2021 LUNG CANCER SCREENING - USE SMARTSET [id number] Completed 12/27/2022, 12/13/2021 GARDASIL-HPV IMMUNIZATION SERIES Aged [...] this encounter Medical Devices Implanted Type Area Code Machine Operator Device Identifier Shelf Expiration Date Model / Serial / Lot Chip Cancellous 30cc [id number] - [id number] - [id number] Implanted:Qty : 1 on 05/04/2018 by Minh Shannon MD at OR [facility] [place] Tissue - Human N/A: Spine Lumbar MUSCULOSKELETAL TRANSPLANT FND 03/16/2021 [id number] / [id number] / Dennis Fariba 3 Ti 6x35mm - [id number] Implanted:Qty : 1 on 05/04/2018 by Minh Shannon MD at OR [facility] [place] N/A: Spine Lumbar MONTSERRAT : SPINE 05/05/2018 [id number] / / Description:in set documented as of this encounter Visit Diagnoses Diagnosis Right-sided low back pain with right-sided sciatica, unspecified chronicity Inflammation of sacroiliac joint (HCC) Sacroiliitis, not elsewhere classified documented in this encounter Advance Directives Documents on File Type Date Recorded Patient Environmental Coordinator Expl anation Power of Bus Transportation Manager 10/28/2015 POWER OF A TTORNEY Latest Code Status on File Code Status Date Activated Date Inactivated Comments Full Code 05/04/2018 5:46 AM 05/07/2018 4:17 PM This order reflects the patients wishes and were consensually agreed upon. Care Teams Studio Technician Relationship Specialty Start Date End Date Kenrick Bravo DO [facility] [place] [address] PCP - General Family Medicine 11/13/20 documented as of this encounter
--- OUTSIDE RECORDS SUMMARY | 2023-11-11 01:05 | External Medical Summary | Summary of Care ---
Author Name Unknown Organization [facility] Address [address] [place] [address] Phone [phone] Care Team Providers Care Family Law Paralegal Name Role Phone Rommel Bravo Primary Care Provider Encounter Details Date Type Department Care Team ([facility] st Contact Info) Description 09/15/2023 Patient Reported Data Patient Survey Ortho [facility] Allergies Active Allergy Reactions Criticality Noted Date Comments Betaine High 05/29/2021 cocamidoproplyl Betaine Blue Dyes (Parenteral) High 05/29/2021 Disperse Blue 106 Glutathione High 05/29/2021 Neomycin Anaphylaxis High 05/29/2021 Fluoxetine Edema face/lips/tongue High 01/01/2022 Tea Tree Oil Rash Low 05/29/2021 Trypsin-[place] Oil-[place] Balsam High 05/29/2021 Bupropion 10/01/2006 Chest pain [...] Operating Room [facility] [address] [place] [phone] Sundar Grubbs, [address] [place] [phone] 10/03/2023 9:40 AM EST - 10/03/2023 10:05 AM EST Surgery [facility], Operating Room [facility] [address] [place] [phone] Sundar Grubbs, [address] [place] [address] INJECTION SACROILIAC JOINT 10/13/2023 8:00 AM EST Office Visit Orthopaedics [facility] [address] [place] [address] Maurice Duke, DO [address] [place] [address] 11/27/2023 9:00 AM EDT Office Visit Cardiology, [facility] [address] [place] [address] Ewa Conteh CRNP [address] [place] [address] 11/27/2023 1:40 PM EDT Office Visit Family Practice [facility] [address] [place] [address] Faiza Bennett CRNP [address] [place] [address] 06/01/2024 1:00 PM EDT Office Visit [facility] [address] [place] [address] Rommel Bravo DO [address] [place] [address] Scheduled Procedures Name Priority Associated Diagnoses Date/Ti [...] 05/29/2021 LUNG CANCER SCREENING - USE SMARTSET [id number] Completed 12/27/2022, 12/13/2021 Influenza Vaccine (FLU shot) Completed , 05/29/2022, 05/09/2021, Additional history exists GARDASIL-HPV IMMUNIZATION SERIES Aged Out No longer eligible based on patient's age to complete this topic MENINGOCOCCAL (MENACTRA/MENVEO) Aged Out No longer eligible based on patient's age to complete this topic documented as of this encounter Medical Devices Implanted Type Area Hospitality Manager Device Identifier Shelf Expiration Date Model / Serial / Lot Chip Cancellous 30cc [id number] - [id number] - [id number] Implanted:Qty : 1 on 05/04/2018 by Minh Shannon MD at OR [facility] [place] Tissue - Human N/A: Spine Lumbar MUSCULOSKELETAL TRANSPLANT FND 03/16/2021 [id number] / [id number] / Dennis Fariba 3 Ti 6x35mm - [id number] Implanted:Qty : 1 on 05/04/2018 by Minh Shannon MD at OR [facility] [place] N/A: Spine Lumbar MONTSERRAT : SPINE 05/05/2018 [id number] / / Description:in set documented as of this encounter Advance Directives Documents on File Type Date Recorded Patient Churner Expl anation Power of Research Support Specialist 10/28/2015 POWER OF A TTORNEY Latest Code Status on File Code Status Date Activated Date Inactivated Comments Full Code 05/04/2018 5:46 AM 05/07/2018 4:17 PM This order reflects the patients wishes and were consensually agreed upon. Care Teams Family Law Paralegal Relationship Specialty Start Date End Date Rommel Bravo DO [address] [place] [address] PCP - General Family Medicine 11/13/20 documented as of this encounter
--- OUTSIDE RECORDS SUMMARY | 2023-11-11 01:06 | External Medical Summary | Summary of Care ---
Author Name Unknown Organization [facility] Address [address] [place] [address] Phone [phone] Care Team Providers Care Mainframe Analyst Name Role Phone Kenrick Bravo DO Primary Care Provider Reason for Visit * Reason Comments Medication Refill Encounter Details Date Type Department Care Team Description 05/17/2023 Refill Family Practice [facility] [address] [facility] [place] [address] Kenrick [facility]ravo DO [address] [facility] [address] Dyslipidemia, goal LDL below 130 Allergies Active Allergy Reactions Severity Noted Date Comments Betaine High 05/29/2021 cocamidoproplyl Betaine Blue Dyes (Parenteral) High 05/29/2021 Disperse Blue 106 Glutathione High 05/29/2021 Neomycin Anaphylaxis High 05/29/2021 Fluoxetine Edema face/lips/tongue High 01/01/2022 Tea Tree Oil Rash Low 05/29/2021 Trypsin-[place] Oil-[place] Balsam High 05/29/2021 Bupropion 10/01/2006 Chest pain and cyanosis documented as of this encounter (statuses as of 05/18/2023) Medications Medication Sig Dispensed Refills Start Date End Date Status Citalopram Hydrobromide 40 MG Oral Tablet (CeleXA) TAKE 1 TABLET (40MG) BY MOUTH IN THE MORNING 90 Tablet 5 06/20/2022 06/20/2023 Active Ibuprofen 200 MG Oral Capsule Take [...] MORNING 30 Tablet 11 05/18/2023 05/17/2024 Active Rosuvastatin Calcium 10 MG Oral Tablet (Crestor)Indicatio ns:Dyslipidemia, goal LDL below 130 TAKE ONE TABLET BY MOUTH IN THE MORNING 30 Tablet 11 05/29/2022 05/17/2023 Discontinued (Refill) documented as of this encounter (statuses as of 05/18/2023) Active Problems Problem Noted Date Prediabetes 01/23/2021 Overview: Per Prediabetes protocol Pap smear for cervical cancer screening 12/15/2020 Sacroiliitis 11/27/2020 Lumbar radiculopathy 05/05/2018 DDD (degenerative disc disease), lumbar 05/05/2018 Esophageal reflux 07/03/2009 Insomnia 10/01/2006 Overview: ICD-10 update of inactive term documented as of this encounter (statuses as of 05/18/2023) Resolved Problems Problem Noted Date Resolved Date Tobacco use disorder 04/29/2008 05/18/2009 ADJ DISORDER W/DEPRES MOOD 10/08/200611/27 Overview: Was on wellbutrin (not effective), paxil (chest hurts) Zoloft worked. See scanned records from 10/01/2006 documented as of this encounter (statuses as of 05/18/2023) Immunizations Name Administration Dates Next Due COVID-19 mRNA, LNP-s, No Pre serve, 2-Dose Series ([employer]) 01/05/2021,12/15/2020 COVID-19, mRNA, LNP-s, PF, B ooster, [...] 0.6 oz pu re alcohol) beer daily Food Insecurity Answer Date Recorded Within the past 12 months, y ou worried that your food would run out before you got money to buy more. Never true 12/15/2020 Within the past 12 months, t he food you bought just didn't last and you didn't have money to get more. Never true 12/15/2020 Sex Assigned at Date Recorded Not on file Job Start Date Occupation [...] or making decisions? (5 years old or older No 05/04/2018 documented as of this encounter Miscellaneous Notes * Telephone Encounter - Yang Adam [facility] - 05/18/2023 6:03 PM EDT Signed Prescriptions: Disp Refills Rosuvastatin Calcium 10 MG Oral Tablet (Cr*30 Tab*11 Sig: TAKE ONE TABLET BY MOUTH IN THE MORNINGAuthorizing Provider: KENRICK BRAVO User: YANG ADAM documented in this encounter Plan of Treatment Upcoming Encounters Date Type Specialty Care Team Description 06/09/2023 Office Visit Family Medicine Kenrick Bravo DO [address] [place] [address] 08/19/2023 Office Visit Cardiology Jacqueline Richard CRNP [address] [place] [address] Health Maintenance Due Date Last Done Comments [...] 05/29/2021 LUNG CANCER SCREENING - USE SMARTSET [id number] Completed 12/27/2022, 12/13/2021 GARDASIL-HPV IMMUNIZATION SERIES Aged [...] this encounter Medical Devices Implanted Type Area Industrial Technology Teacher Device Identifier Shelf Expiration Date Model / Serial / Lot Chip Cancellous 30cc [id number] - [id number] - [id number] Implanted:Qty : 1 on 05/04/2018 by Minh Shannon MD at OR [facility] [place] Tissue - Human N/A: Spine Lumbar MUSCULOSKELETAL TRANSPLANT FND 03/16/2021 [id number] / [id number] / Dennis Fariba 3 Ti 6x35mm - [id number] Implanted:Qty : 1 on 05/04/2018 by Minh Shannon MD at OR [facility] [place] N/A: Spine Lumbar MONTSERRAT : SPINE 05/05/2018 [id number] / / Description:in set documented as of this encounter Visit Diagnoses Diagnosis Dyslipidemia, goal LDL below 130 Other and unspecified hyperlipidemia documented in this encounter Advance Directives Documents on File Type Date Recorded Patient Director Of Scientific Research Expl anation Power of Junior Assistant Manager 10/28/2015 POWER OF A TTORNEY Latest Code Status on File Code Status Date Activated Date Inactivated Comments Full Code 05/04/2018 5:46 AM 05/07/2018 4:17 PM This order reflects the patients wishes and were consensually agreed upon. Care Teams Mainframe Analyst Relationship Specialty Start Date End Date Kenrick Bravo DO [address] [place] [address] PCP - General Family Medicine 11/13/20 documented as of this encounter
--- OUTSIDE RECORDS SUMMARY | 2023-11-11 01:06 | External Medical Summary | Summary of Care ---
Author Name Unknown Organization [facility] Address [address] [place] [address] Phone [phone] Care Team Providers Care Pharmaceutical Detailer Name Role Phone Rommel Bravo DO Primary Care Provider Encounter Details Date Type Department Care Team (Late st Contact Info) Description 07/08/2023 Orders Only Outcomes Research Department [address], [place] [id number] Felicia Chavez CHRA POI Research Other*[id number] Allergies Active Allergy Reactions Criticality Noted Date Comments Betaine High 05/29/2021 cocamidoproplyl Betaine Blue Dyes (Parenteral) High 05/29/2021 Disperse Blue 106 Glutathione High 05/29/2021 Neomycin Anaphylaxis High 05/29/2021 Fluoxetine Edema face/lips/tongue High 01/01/2022 Tea Tree Oil Rash Low 05/29/2021 Trypsin-[place] Oil-[place] Balsam High 05/29/2021 Bupropion 10/01/2006 Chest pain and cyanosis documented as of this encounter (statuses as of 07/08/2023) Medications Medication Sig Dispensed Refills Start Date [...] as of this encounter (statuses as of 07/08/2023) Active Problems Problem Noted Date Diagnosed Date Prediabetes 01/23/2021 Overview: Per Prediabetes protocol Pap smear for cervical cancer screening 12/16/19 21 Sacroiliitis 11/27/2020 Lumbar radiculopathy 05/05/2018 DDD (degenerative disc disease), lumbar 05/05/20 18 Esophageal reflux 07/03/2009 Insomnia 10/01/2006 Overview: ICD-10 update of inactive term documented as of this encounter (statuses as of 07/08/2023) Resolved Problems Problem Noted Date Diagnosed Date Resolved Date Tobacco use disorder 04/29/2008 009 ADJ DISORDER W/DEPRES MOOD 10/08/2006 0 11/27/2021 Overview: Was on wellbutrin (not effective), paxil (chest hurts) Zoloft worked. See scanned records from 10/01/2006 documented as of this encounter (statuses as of 07/08/2023) Immunizations Name Administration Dates Next Due COVID-19 mRNA, LNP-s, No Pre serve, 2-Dose Series ([employer]) 01/05/2021,12/15/2020 COVID-19, mRNA, LNP-s, PF, B ooster, 100mcg/0.5mg (Moderna) 08/15/2021 Covid-19, Mrna, Lnp-s, Pf, B ivalent, 30 Mcg, IM, 12 yrs and above ([employer]) 05/31/2022 SEASONAL INFLUENZA, PF, 6 M & [...] 08/19/2023 10:30 AM EST Office Visit Cardiology, [facility] [address] [place] [address] Jacqueline Richard CRNP [address] [place] [address] 11/17/2023 8:00 AM EDT Office Visit Family Practice [facility] [address] [place] [address] Rommel Bravo DO [address] [place] [address] Scheduled Orders Name Type Priority Associated Diagnoses Orde r Schedule MYCODE SUBSEQUENT ADULT Lab Routine MyCode Research Other*[id number] Every 6 Months for 2 Occurrences starting 07/08/2023 until 07/27/2024 Health Maintenance Due Date Last Done Comments [...] 05/29/2021 LUNG CANCER SCREENING - USE SMARTSET [id number] Completed 12/27/2022, 12/13/2021 GARDASIL-HPV IMMUNIZATION SERIES Aged [...] this encounter Medical Devices Implanted Type Area Children'S Aide Device Identifier Shelf Expiration Date Model / Serial / Lot Chip Cancellous 30cc [id number] - [id number] - [id number] Implanted:Qty : 1 on 05/04/2018 by Minh Shannon MD at [place] [facility] Tissue - Human N/A: Spine Lumbar MUSCULOSKELETAL TRANSPLANT FND 03/16/2021 [id number] / [id number] / Dennis Fariba 3 Ti 6x35mm - [id number] Implanted:Qty : 1 on 05/04/2018 by Minh Shannon MD at [place] [facility] N/A: Spine Lumbar MONTSERRAT : SPINE 05/05/2018 [id number] / / Description:in set documented as of this encounter Visit Diagnoses Diagnosis MyCode Research Other*[id number] documented in this encounter Advance Directives Documents on File Type Date Recorded Patient Group Care Worker Expl anation Power of Dental Mold Maker 10/28/2015 POWER OF A TTORNEY Latest Code Status on File Code Status Date Activated Date Inactivated Comments Full Code 05/04/2018 5:46 AM 05/07/2018 4:17 PM This order reflects the patients wishes and were consensually agreed upon. Care Teams Pharmaceutical Detailer Relationship Specialty Start Date End Date Rommel Bravo DO [address] [place] [address] PCP - General Family Medicine 11/13/20 documented as of this encounter
[2023-11-11] MEDS: ALBUT/IPRATROP 3MG/0.5MG NEB 3 ML VIAL NEB SCH (06:01)
[2023-11-11 07:11] LABS: Hematocrit (blood only) 39.4 % (37.0-47.0); Mean Corpuscular Hemoglobin 33.3 pg (25.0-34.0); Mean Platelet Volume 9.7 fL (9.4-12.4); Platelet Count 258 K/uL (130-400); RDW Coefficient of Variation 14.1 % (11.5-14.5); RDW Standard Deviation 52.3 fL (36.4-46.3); White Blood Count 8.95 K/ul (4.8-10.8)
[2023-11-11 07:20] LABS: Magnesium 2.4 mg/dl (1.7-2.4)
[2023-11-11 07:22] LABS: Estimated Average Glucose 134 mg/dl; Hemoglobin A1C 6.3 % (4.5-5.6)
[2023-11-11 07:35] LABS: Basophils # (auto) 0.01 K/uL (0.00-0.20); Basophils % (auto) 0.1 %; Eosinophils # (auto) 0.03 K/uL (0.00-0.50); Eosinophils % (auto) 0.3 %; Immature Granulocytes # (auto) 0.04 K/uL (0.01-0.20); Immature Granulocytes % (auto) 0.4 %; Lymphocytes # (auto) 0.62 K/uL (1.20-3.40); Lymphocytes % (auto) 6.9 %; Monocytes # (auto) 0.13 K/uL (0.11-0.59); Monocytes % (auto) 1.5 %; Neutrophils # (auto) 8.12 K/uL (1.40-6.50); Neutrophils % (auto) 90.8 %; Polychromasia 1+; Toxic Vacuolation 1+
[2023-11-11] MEDS: CITALOPRAM 40 MG TAB PO SCH (08:30)
[2023-11-11] MEDS: ROSUVASTATIN CALCIUM 10 MG TAB PO SCH (08:30)
[2023-11-11] MEDS: ENOXAPARIN INJ 40 MG/0.4 ML SYR SQ SCH (08:31)
[2023-11-11 08:47] LABS: Calcium 9.5 mg/dl (8.6-10.3); Potassium 3.8 mmol/L (3.5-5.1)
[2023-11-11 08:53] LABS: BUN Creatinine Ratio 13.3 (10-20); Creatinine Clr Calc Pharmacy 100.1 ml/min; Est GFR (African American) 116.4 ml/min; Est GFR (Non-African American) 100.5 ml/min
[2023-11-11 09:20] LABS: Troponin I High Sensitivity 4.1 pg/ml (0-14)
[2023-11-11] MEDS ORDERED: GLUCAGON FOR INJ 1 MG VIAL SQ PRN (10:18)
[2023-11-11] MEDS ORDERED: CARBOHYDRATES FOR HYPOGLYCEMIA PO PRN (10:18)
[2023-11-11] MEDS ORDERED: DEXTROSE 50% 50 ML SYRINGE IV PRN (10:18)
[2023-11-11] MEDS ORDERED: PHARMACY GLYCEMIC MGMT CONSULT PRN (10:18)
[2023-11-11] MEDS ORDERED: GLUCOSE 10 TAB/TUBE PO PRN (10:18)
[2023-11-11] MEDS ORDERED: GLUCOSE 40% GEL 15 GM TUBE PO PRN (10:18)
--- NOTE | 2023-11-11 10:44 | Pharmacy Report ---
Pharmacy Glycemic Short Note 2 - Date of Service November 11, 2023 - Glycemic Short BSG Results (Last 24 hours): 11/10/23 11/10/23 11/11/23 15:30 23:11 06:21 Glucose 137 H 201 H 206 H OUTPATIENT ANTIDIABETIC REGIMEN: * n/a * A1c 6.3% ASSESSMENT: * 58 year old female admitted with COPD exacerbation. PMHx significant for pre- diabetes, GERD, depression. Pharmacy consulted for glycemic management as BSGs this AM > 200 mg/dL. Patient did receive steroids yesterday (dexamethasone 10 mg IV and solumedrol 40 mg iv last evening). Continues on solumedrol 40 mg iv q 8 hours. * Patient is pre-diabetic, will add on novolog starting at lunch time. Reasonable to trial weight based stress of 2 dosing. Will hold basal insulin and see how patient responds to SQ novolog. May consider scale for basal insulin at HS if BSGs remain >200 PLAN FOR INPATIENT GLYCEMIC CONTROL: * Hold outpatient oral diabetes medications * Basal insulin * Lantus 0-10 units HS based upon BSG value * Bolus insulin * NovoLog per scale ACHS or Q6hrs while NPO * Goal Range: Low 110 mg/dL - High 140 mg/dL * Correction Factor: 30 mg/dL/unit * Nutritional / Prandial insulin per carb ratio of 1 unit per 10 grams CHO consumed
[2023-11-11] MEDS: SODIUM CHLOR 7% 4 ML NEB NEB SCH (10:52)
[2023-11-11] MEDS: INSULIN ASPART PER UNIT CHARGE SC SCH (13:01)
--- NOTE | 2023-11-11 18:45 | Hospitalist Progress Note ---
Date of Service November 11, 2023 delayed entry date of service noted above Assessment & Plan (1) SOB (shortness of breath): Plan: per admitting service notes with addendum: 58-year-old female with past medically significant for prediabetes, GERD, sacroiliitis, depression, mild COPD presents with shortness of breath. Patient states she had cold symptoms on October 26. Since then she is developing cough and shortness of breath which is getting progressively worse. And today walking short distance making her short of breath. And also had some chest tightness. Some headache. No body aches. Appetite is down. Coughing and bringing up whitish phlegm. Thought maybe had some low-grade fever. Some nausea. No vomiting. No abdominal pain. Normal bowel and bladder movements. Vision is okay. No earaches. Had sore throat for initial couple of days but is gone now. Hemodynamics are okay. Shortness of breath Mostly COPD exacerbation from viral bronchitis Bio fire was positive for [id number] Droplet precautions IV Solu-Medrol 40 mg 3 times daily DuoNebs [id number] and as needed P.o. doxycycline Will monitor 4/2 Clinically improving Continue present regimen Wean of oxygen supplement Prediabetes A1c 6.3 Currently hyperglycemic Insulin sliding scale, pharmacy glycemic control Chest tightness Mostly from above Initial troponin negative and EKG okay Will follow serial enzymes and repeat EKG If any concern will get echo and cardiac consult Acute coronary syndrome ruled Resolved Troponins negative Depression on citalopram Hyperlipidemia On statin DVT prophylaxis Lovenox Disposition pending plan of care discussed with patient and family at the bedside in detail and at length all questions answered They are understanding, agreeable, comfortable with the plan of care Admission and Anticipated Discharge Date Admission Date: November 10, 2023 Subjective ff up for CP exacerbation, etc. seen resting in bed, comfortable on 2 L NC having a sandwhich in good spirit states she feels improved since admission breathing is improving less cough no fever/chills no chest pain no other new symptoms Review of Systems Review of Systems: all noted and negative except for above Physical Exam Physical Exam: General- oriented x 3, not in distress, speaks in sentences with no effort or accessory muscle use Eyes- anicteric Neck- no JVD Lungs- mild rhonchi BL Heart- normal rate, regular rhythm; no murmurs Abdomen- normal bowel sounds, nondistended, soft, nontender Extremities- no pretibial edema, no calf tenderness Neuro- alert, oriented x 3; no gross focal neurologic deficits Skin- warm & dry Results & Data Results & Data Vital Signs (Past 12 Hours) Vital Signs Temp Pulse Pulse Pulse Resp BP BP 11/11/23 15:38 69 11/11/23 15:29 37.0 C 94 H 18 176/86 H 11/11/23 15:27 72 17 11/11/23 12:30 102 H 11/11/23 12:27 11/11/23 12:27 36.8 C 85 18 144/76 H 11/11/23 12:00 111 H 23 140/89 11/11/23 11:30 83 22 11/11/23 11:23 77 23 11/11/23 11:23 141/93 H 11/11/23 11:00 11/11/23 10:55 83 20 11/11/23 10:30 11/11/23 10:00 11/11/23 09:30 11/11/23 09:00 11/11/23 08:32 86 20 167/79 H 11/11/23 08:30 11/11/23 08:29 11/11/23 08:29 167/79 H 11/11/23 08:00 76 21 11/11/23 07:53 86 11/11/23 07:30 87 22 11/11/23 07:00 82 19 Pulse Ox O2 Del Method O2 Flow Rate FiO2 11/11/23 15:38 11/11/23 15:29 94 Room Air 11/11/23 15:27 97 Room Air 21 11/11/23 12:30 11/11/23 12:27 Nasal Cannula 2 11/11/23 12:27 93 Nasal Cannula 2 11/11/23 12:00 93 2 11/11/23 11:30 94 11/11/23 11:23 94 11/11/23 11:23 11/11/23 11:00 98 11/11/23 10:55 97 Nasal Cannula 2 11/11/23 10:30 95 11/11/23 10:00 95 11/11/23 09:30 96 11/11/23 09:00 95 11/11/23 08:32 95 Room Air 11/11/23 08:30 95 11/11/23 08:29 95 11/11/23 08:29 11/11/23 08:00 95 11/11/23 07:53 11/11/23 07:30 93 11/11/23 07:00 94 all noted and reviewed including below
[2023-11-11] MEDS: LANTUS PER UNIT CHARGE SC SCH (21:21)
[2023-11-12] MEDS: INSULIN ASPART PER UNIT CHARGE SC SCH (00:07)
[2023-11-12] MEDS: LANTUS PER UNIT CHARGE SC SCH (08:44)
--- NOTE | 2023-11-12 10:25 | Pharmacy Report ---
Pharmacy Glycemic Short Note 2 - Date of Service November 12, 2023 - Glycemic Short BSG Results (Last 24 hours): 11/11/23 11/11/23 11/11/23 12:19 16:50 20:33 POC Glucose 217 H 192 H 242 H 11/12/23 11/12/23 00:00 08:17 POC Glucose 165 H 173 H OUTPATIENT ANTIDIABETIC REGIMEN: * n/a * A1c 6.3% ASSESSMENT: 11/10 * Patient received total of 26 units of insulin yesterday, of which 10 units were basal insulin * Fasting BSG 173 mg/dL - will give 10 units basal this AM and have scale for HS in case BSGs rise * Tightened CF/CR this AM as BSGs remained in 200s yesterday evening 11/11 * 58 year old female admitted with COPD exacerbation. PMHx significant for pre- diabetes, GERD, depression. Pharmacy consulted for glycemic management as BSGs this AM > 200 mg/dL. Patient did receive steroids yesterday (dexamethasone 10 mg IV and solumedrol 40 mg iv last evening). Continues on solumedrol 40 mg iv q 8 hours. * Patient is pre-diabetic, will add on novolog starting at lunch time. Re asonable to trial weight based stress of 2 dosing. Will hold basal insulin and see how patient responds to SQ novolog. May consider scale for basal insulin at HS if BSGs remain >200 PLAN FOR INPATIENT GLYCEMIC CONTROL: * Hold outpatient oral diabetes medications * Basal insulin * Lantus 10 units daily * Lantus 0-5 units HS * Bolus insulin * NovoLog per scale ACHS or Q6hrs while NPO * Goal Range: Low 110 mg/dL - High 140 mg/dL * Correction Factor: 20 mg/dL/unit * Nutritional / Prandial insulin per carb ratio of 1 unit per 8 grams CHO consumed
--- NOTE | 2023-11-12 15:08 | Electrocardiogram Report ---
Test Reason : Blood Pressure : / mmHG Vent. Rate : 116 BPM Atrial Rate : 116 BPM P-R Int : 116 ms QRS Dur : 084 ms QT Int : 336 ms P-R-T Axes : 066 046 050 degrees QTc Int : 467 ms Sinus tachycardia Otherwise normal ECG When compared with ECG of 29-JUL-1998 22:36, No significant change was found Confirmed by Bandar Snyder ([id number] on 11/12/2023 3:08:45 PM Referred By: Confirmed By:Bandar Snyder
[2023-11-12] MEDS ORDERED: predniSONE 20 MG TAB PO ONE (16:00)
[2023-11-12] MEDS: FLUTICASONE/VILANTEROL 100/25MCG 14 PUFFS/INHALER INH SCH (16:41)
--- NOTE | 2023-11-12 16:50 | Discharge Summary ---
Discharge Summary Date of Service November 12, 2023 Notes For Next Care Provider Medication Changes From Visit DuoNeb-breathing treatment for COPD exacerbation Breo-inhaler for long-term control of COPD Doxycycline-antibiotics for acute bronchitis Prednisone taper-steroid for COPD exacerbation, take as follows 40 mg daily x 2 days, then 30 mg daily x 2 days, then 20 mg daily x 2 days, then 10 mg daily x 2 days, then stop Metformin ER-to control blood sugar while taking prednisone Lisinopril-for blood pressure control while taking prednisone, hold if you are feeling lightheaded or dizzy Admission HPI Per Admitting Provider 58-year-old female with past medically significant for prediabetes, GERD, sacroiliitis, depression, mild COPD presents with shortness of breath. Patient states she had cold symptoms on October 26. Since then she is developing cough and shortness of breath which is getting progressively worse. And today walking short distance making her short of breath. And also had some chest tightness. Some headache. No body aches. Appetite is down. Coughing and bringing up whitish phlegm. Thought maybe had some low-grade fever. Some nausea. No vomiting. No abdominal pain. Normal bowel and bladder movements. Vision is okay. No earaches. Had sore throat for initial couple of days but is gone now. Hemodynamics are okay. Past med history. As mentioned above Past surgical history. Likely shoulders. Lumbar spine fusion surgery. Sacroiliac joint injection. Posterior spinal fixation. Social history. . Smoked 1 pack a day for 23 years. Quit smoking in 2008. Alcohol beer daily. No known drug use. Family history. Father had eczema. Heart attack. Lung cancer. Back problems. Maternal grandmother had NC at any age. Paternal grandmother had diabetes. Admission Exam Per Admitting Provider General-Not in distress Head- atraumatic Eyes- PERRL. ENT- oropharynx clear Neck- supple, no JVD. Lungs- clear to auscultation mild bilateral rhonchi, no wheezing Heart- regular rhythm; no murmur, no gallop. Abdomen- normal bowel sounds, soft, nontender, no distension Extremities- no pretibial edema, no erythema seen Neuro- alert, oriented x 3; PERRL, no facial palsy; no dysarthria; moves extremities. Skin- warm & dry Principal Dx & Hospital Course #1 = Principal Diagnosis (1) SOB (shortness of breath): per admitting service notes with addendum: 58-year-old female with past medically significant for prediabetes, GERD, sacroiliitis, depression, mild COPD presents with shortness of breath. Patient states she had cold symptoms on October 26. Since then she is developing cough and shortness of breath which is getting progressively worse. And today walking short distance making her short of breath. And also had some chest tightness. Some headache. No body aches. Appetite is down. Coughing and bringing up whitish phlegm. Thought maybe had some low-grade fever. Some nausea. No vomiting. No abdominal pain. Normal bowel and bladder movements. Vision is okay. No earaches. Had sore throat for initial couple of days but is gone now. Hemodynamics are okay. Shortness of breath Mostly COPD exacerbation from viral bronchitis Bio fire was positive for [id number] Droplet precautions IV Solu-Medrol 40 mg 3 times daily DuoNebs [id number] and as needed P.o. doxycycline Will monitor CT chest: Lungs and pleura: Biapical scarring is noted. Heart and pericardium: Heart size is normal. No pericardial effusion. Vessels: No evidence of pulmonary embolism. Mediastinum and sanjeev: Subcentimeter lymph nodes are seen. Chest wall and lower neck: Unremarkable. Abdomen: A hiatal hernia is seen. Bones: Degenerative changes in the thoracic spine. IMPRESSION: 1. No acute abnormality and in particular no evidence of pulmonary embolus. 2. Mild interstitial thickening is seen with biapical scarring. ACT 112: Negative or not required by law. 4/3 Clinically improved Weaned off oxygen States she feels much better Ambulating in the room with no problems Two-step exercise test performed: Patient does not require supplemental oxygen Discharge plan: Breo twice daily DuoNebs 3 times daily x 1 week Doxycycline 100 mg p.o. twice daily x 5 days Prednisone taper 40 mg daily x 2 days, 30 mg x 2 days, etc. further evaluation and management of CT chest findings biapical scarring & Mediastinum and sanjeev: Subcentimeter lymph nodes , as outpatient recommend repeat CT chest and referral to Pulmonogist Prediabetes A1c 6.3 Currently hyperglycemic Insulin sliding scale, pharmacy glycemic control 4/3 Prescribed metformin ER 500 mg x 4 days while taking prednisone more than 20 mg Follow-up closely as outpatient Hypertension Likely secondary to steroids Lisinopril 5 mg p.o. daily while on prednisone Please reevaluate upon follow-up visit with PCP in 1 week Chest tightness Mostly from above Initial troponin negative and EKG okay Resolved Acute coronary syndrome ruled out Troponins negative Depression on citalopram Hyperlipidemia On statin DVT prophylaxis Lovenox Disposition DC home PCP follow-up in 1 week plan of care discussed with patient and family at the bedside in detail and at length all questions answered They are understanding, agreeable, comfortable with the plan of care Discharge Exam General- oriented x 3, not in distress, speaks in sentences with no effort or accessory muscle use Eyes- anicteric Neck- no JVD Lungs- clear breath sounds BL no wheezing Heart- normal rate, regular rhythm; no murmurs Abdomen- normal bowel sounds, nondistended, soft, nontender Extremities- no pretibial edema, no calf tenderness Neuro- alert, oriented x 3; no gross focal neurologic deficits Skin- warm & dry Updated Medication List Medication Instructions Recorded Confirmed Type citalopram 40 mg tablet 40 mg PO DAILY 11/10/23 11/10/23 History cyclobenzaprine 10 mg tablet 10 mg PO BID PRN MUSCLE SPASMS 11/10/23 11/10/23 History ibuprofen 200 mg tablet 400 mg PO Q6H PRN Pain 11/10/23 11/10/23 History naproxen 500 mg tablet 500 mg PO BID PRN Pain 11/10/23 11/10/23 History rosuvastatin 10 mg tablet 10 mg PO DAILY 11/10/23 11/10/23 History doxycycline hyclate 100 mg capsule 100 mg PO BID 5 days #10 caps 11/12/23 Rx fluticasone furoate 100 1 inh inhalation DAILY 30 days #60 11/12/23 Rx mcg-vilanterol 25 mcg/dose ea inhalation powder (Breo Ellipta) ipratropium 0.5 mg-albuterol 3 mg 3 ml NEB TID 7 days #90 mL 11/12/23 Rx (2.5 mg base)/3 mL nebulization soln lisinopril 5 mg tablet 5 mg PO DAILY #7 tabs 11/12/23 Rx metformin 500 mg tablet,extended 500 mg PO DAILY 4 days #4 tabs 11/12/23 Rx release 24 hr prednisone 10 mg tablet 10 mg PO UD #20 tabs 11/12/23 Rx Hospital Stay Data Consultations 11/10/23 19:35 ED Decision to Admit Stat Diagnostic Imagining Performed 11/10/23 17:08 CT angio chest PE protocol Stat CT angio chest PE protocol CLINICAL HISTORY: PE TECHNIQUE: Multidetector row helical CT of the chest was performed with angiographic protocol. Coronal and sagittal reformations were obtained. Coronal and sagittal MIPS were obtained from the axial data set and were submitted for review. Automated dose lowering techniques and/or adjustment according to patient size were utilized for this exam. CT DOSE: 720.03 mGy.cm Comparison: Comparison is made to chest radiograph 11/10/2023 FINDINGS: Lungs and pleura: Biapical scarring is noted. Heart and pericardium: Heart size is normal. No pericardial effusion. Vessels: No evidence of pulmonary embolism. Mediastinum and sanjeev: Subcentimeter lymph nodes are seen. Chest wall and lower neck: Unremarkable. Abdomen: A hiatal hernia is seen. Bones: Degenerative changes in the thoracic spine. IMPRESSION: 1. No acute abnormality and in particular no evidence of pulmonary embolus. 2. Mild interstitial thickening is seen with biapical scarring. ACT 112: Negative or not required by law. Electronically signed by: Robert Bahena M.D. 11/10/2023 6:00 PM Pending Results Patient Have Any Pending Studies at Discharge: No Discharge Instructions Given to Patient (Per Discharging Provider) PLEASE REFER TO YOUR NEW MEDICATION LIST AND FOLLOW INSTRUCTIONS CAREFULLY. YOUR NEW MEDICATIONS INCLUDE: DuoNeb-breathing treatment for COPD exacerbation Breo-inhaler for long-term control of COPD Doxycycline-antibiotics for acute bronchitis Prednisone taper-steroid for COPD exacerbation, take as follows 40 mg daily x 2 days, then 30 mg daily x 2 days, then 20 mg daily x 2 days, then 10 mg daily x 2 days, then stop Metformin ER-to control blood sugar while taking prednisone Lisinopril-for blood pressure control while taking prednisone, hold if you are feeling lightheaded or dizzy PLEASE CALL YOUR PRIMARY CARE PHYSICIAN OR RETURN TO THE ER IF WITH WORSENING OF SYMPTOMS, INCLUDING Shortness of breath, cough, fevers or chills, etc. FOLLOW UP WITH PRIMARY CARE PHYSICIAN OUTLINED ABOVE. Total Time Total Time Spent Total Time Spent (In Minutes): >30 minutes
[2023-11-12] MEDS: lisinopril 5 MG TAB PO ONE (16:51)
[2023-11-13] MEDS ORDERED: INSULIN ASPART PER UNIT CHARGE SC SCH
== END 2023-11-12 16:53 | disposition home or self-care (01) | DRG 192 ==
LOC: ED 15:12 → SUATTDRO 20:48 → EDINP 20:48 → 2W 22:49